=== PATIENT | female | born 1965 | race African-American/Black ===

== ENCOUNTER 2018-05-16 23:50 | Inpatient (IN) | payer OTHER ==
[2018-05-17] MEDS: HYDROCODONE/APAP (5/325) TAB PO ×2 (01:59→23:58)
[2018-05-17] MEDS ORDERED: GLUCOSE GEL 15 GRAM TUBE BUCCAL (02:00)
[2018-05-17] MEDS ORDERED: DEXTROSE 50% 50 ML SYRINGE IV ×2 (02:00)
[2018-05-17] MEDS ORDERED: GLUCAGON 1 MG INJ IM (02:00)
[2018-05-17] MEDS: ACCU-CHEK XX (02:00)
[2018-05-17] MEDS ORDERED: GLUCOSE GEL 15 GRAM TUBE PO ×2 (02:00)
[2018-05-17] MEDS: ZOLPIDEM 5 MG TAB PO ×2 (02:52→23:57)
[2018-05-17] MEDS: hydrALAzine 20 MG INJ IV (02:53)
[2018-05-17] MEDS: LACTULOSE 30ML CUP PO ×5 (02:53→23:29)
[2018-05-17] MEDS ORDERED: ACETAMINOPHEN 325 MG TAB PO (06:30)
[2018-05-17] MEDS ORDERED: NACL 0.9% 3 ML SYG IV (06:30)
[2018-05-17] MEDS: INSULIN ASPART [NOVOLOG] 3 ML PEN SC ×8 (07:25→20:52)
[2018-05-17] MEDS ORDERED: INSULIN ASPART [NOVOLOG] 3 ML PEN SC (07:55)
[2018-05-17 07:57] LABS: ADD MAN DIFF? NO
[2018-05-17 07:59] LABS: BASOPHILS % 0.2 % (0.0-2.0); EOSINOPHILS # 0.1 10^3/ul (0.0-0.5); EOSINOPHILS % 0.6 % (0.0-7.0); HEMATOCRIT 37.2 % (37.0-47.0); HEMOGLOBIN 12.1 g/dl (12.0-16.0); LYMPHOCYTES # 2.8 10^3/ul (0.8-2.9); LYMPHOCYTES % 31.4 % (15.0-51.0); MEAN CORPUSCULAR HEMOGLOBIN 24.5 pg (29.0-33.0); MEAN CORPUSCULAR HGB CONC 32.5 g/dl (32.0-37.0); MEAN CORPUSCULAR VOLUME 75.5 fl (82.0-101.0); MEAN PLATELET VOLUME 10.5 fl (7.4-10.4); MONOCYTE # 0.6 10^3/ul (0.3-0.9); MONOCYTES % 6.6 % (0.0-11.0); NEUTROPHIL # 5.5 10^3/ul (1.6-7.5); PLATELET COUNT 321 10^3/UL (140-415); RED BLOOD COUNT 4.93 10^6/ul (4.20-5.40); RED CELL DISTRIBUTION WIDTH 15.1 % (11.5-14.5)
[2018-05-17 08:52] LABS: HEMOGLOBIN A1C 9.9 % (0-5.9)
[2018-05-17] MEDS: DOCUSATE SODIUM 100 MG CAP PO ×2 (08:53→20:48)
[2018-05-17] MEDS: LISINOPRIL 20 MG TAB PO (08:53)
[2018-05-17] MEDS: ASPIRIN 81 MG TAB PO (08:53)
[2018-05-17] MEDS: HEPARIN 5,000 UNIT/0.5 ML VIAL SC ×2 (08:57→20:51)
[2018-05-17] MEDS: INSULIN GLARGINE [LANTus] (100 UNITS/ML) SYG SC (08:57)
[2018-05-17 09:01] LABS: ALANINE AMINOTRANSFERASE 24 IU/L (13-69); ALBUMIN 3.3 g/dl (3.3-4.9); ALBUMIN/GLOBULIN RATIO 0.97; ALKALINE PHOSPHATASE 61 IU/L (42-121); ANION GAP 13 (8-16); ASPARTATE AMINO TRANSFERASE 21 IU/L (15-46); BILIRUBIN,INDIRECT 0.3 mg/dl (0-1.1); BILIRUBIN,TOTAL 0.3 mg/dl (0.2-1.3); BLOOD UREA NITROGEN 24 mg/dl (7-20); CALCIUM 8.8 mg/dl (8.4-10.2); CARBON DIOXIDE 25 mmol/L (21-31); CHLORIDE 100 mmol/L (97-110); CHOL/HDL RATIO 7.3 RATIO; CHOLESTEROL 288 mg/dl (100-200); CREATININE 1.77 mg/dl (0.44-1.00); GLUCOSE 167 mg/dl (70-220); HDL CHOLESTEROL 39 mg/dl (37-92); LDL CHOLESTEROL,CALCULATED 213 mg/dl; MAGNESIUM 2.1 mg/dl (1.7-2.5); POTASSIUM 3.6 mmol/L (3.5-5.1); SODIUM 134 mmol/L (135-144); TOTAL PROTEIN 6.7 g/dl (6.1-8.1); TRIGLYCERIDES 179 mg/dl (0-149)
[2018-05-17] MEDS: ONDANSETRON 4 MG INJ IV (12:07)
[2018-05-17 19:19] LABS: ADD UMIC YES; UR ASCORBIC ACID NEGATIVE (NEGATIVE); UR BACTERIA FEW /HPF (NONE SEEN); UR BILIRUBIN (Dip) NEGATIVE (NEGATIVE); UR BLOOD (Dip) 1+ mg/dL (NEGATIVE); UR CLARITY SLIGHTLY CLOUDY (CLEAR); UR COLOR YELLOW (YELLOW); UR GLUCOSE (Dip) 1+ mg/dL (NEGATIVE); UR KETONES (Dip) TRACE mg/dL (NEGATIVE); UR LEUKOCYTE ESTERASE (Dip) TRACE Leu/ul (NEGATIVE); UR NITRITE (Dip) NEGATIVE (NEGATIVE); UR RBC 3 /HPF (0-5); UR SPECIFIC GRAVITY (Dip) 1.008 (1.003-1.030); UR SQUAMOUS EPITHELIAL CELL MODERATE /HPF (FEW); UR TOTAL PROTEIN (Dip) 3+ mg/dl (NEGATIVE); UR UROBILINOGEN (Dip) NEGATIVE (NEGATIVE); UR WBC 10 /HPF (0-5)
[2018-05-17 19:40] LABS: SODIUM,URINE RANDOM 24 mmol/L (30-90)
[2018-05-17 19:43] LABS: CREATININE,URINE RANDOM 73.11 mg/dl (20-320)
[2018-05-17] MEDS: ATORVASTATIN 20 MG TAB PO (20:48)
[2018-05-18] MEDS: ACCU-CHEK XX (01:19)
[2018-05-18] MEDS: LACTULOSE 30ML CUP PO ×4 (03:22→23:29)
[2018-05-18] MEDS: INSULIN ASPART [NOVOLOG] 3 ML PEN SC ×7 (07:59→21:00)
[2018-05-18] MEDS: DOCUSATE SODIUM 100 MG CAP PO ×2 (08:00→20:22)
[2018-05-18] MEDS: CLOPIDOGREL 75 MG TAB PO (08:47)
[2018-05-18] MEDS: ASPIRIN 81 MG TAB PO (08:47)
[2018-05-18] MEDS: HEPARIN 5,000 UNIT/0.5 ML VIAL SC ×2 (08:48→21:56)
[2018-05-18] MEDS: AMLODIPINE 5 MG TAB PO (08:48)
[2018-05-18] MEDS: INSULIN GLARGINE [LANTus] (100 UNITS/ML) SYG SC (08:49)
[2018-05-18 09:14] LABS: ADD MAN DIFF? NO
[2018-05-18 09:17] LABS: WHITE BLOOD COUNT 8.5 10^3/ul (4.8-10.8)
[2018-05-18 09:17] LABS: BASOPHILS % 0.2 % (0.0-2.0); EOSINOPHILS # 0.1 10^3/ul (0.0-0.5); EOSINOPHILS % 1.1 % (0.0-7.0); HEMATOCRIT 38.4 % (37.0-47.0); HEMOGLOBIN 12.6 g/dl (12.0-16.0); LYMPHOCYTES # 2.4 10^3/ul (0.8-2.9); LYMPHOCYTES % 28.4 % (15.0-51.0); MEAN CORPUSCULAR HEMOGLOBIN 24.8 pg (29.0-33.0); MEAN CORPUSCULAR HGB CONC 32.8 g/dl (32.0-37.0); MEAN CORPUSCULAR VOLUME 75.4 fl (82.0-101.0); MEAN PLATELET VOLUME 10.9 fl (7.4-10.4); MONOCYTE # 0.4 10^3/ul (0.3-0.9); MONOCYTES % 4.8 % (0.0-11.0); NEUTROPHIL # 5.5 10^3/ul (1.6-7.5); NEUTROPHILS % 65.3 % (39.0-77.0); PLATELET COUNT 346 10^3/UL (140-415); RED BLOOD COUNT 5.09 10^6/ul (4.20-5.40); RED CELL DISTRIBUTION WIDTH 15.1 % (11.5-14.5)
[2018-05-18 09:42] LABS: ANION GAP 11 (8-16); BLOOD UREA NITROGEN 29 mg/dl (7-20); CALCIUM 9.1 mg/dl (8.4-10.2); CARBON DIOXIDE 28 mmol/L (21-31); CHLORIDE 101 mmol/L (97-110); CREATININE 1.65 mg/dl (0.44-1.00); GLUCOSE 198 mg/dl (70-220); MAGNESIUM 2.3 mg/dl (1.7-2.5); PHOSPHORUS 4.6 mg/dl (2.5-4.9); POTASSIUM 3.9 mmol/L (3.5-5.1); SODIUM 136 mmol/L (135-144)
[2018-05-18] MEDS: HYDROCODONE/APAP (5/325) TAB PO (21:48)
[2018-05-18] MEDS: ZOLPIDEM 5 MG TAB PO (21:48)
[2018-05-18] MEDS: ATORVASTATIN 20 MG TAB PO (21:48)
[2018-05-19] MEDS: ACCU-CHEK XX ×2 (01:45→23:31)
[2018-05-19] MEDS: LACTULOSE 30ML CUP PO ×5 (05:15→23:31)
[2018-05-19 08:00] LABS: PTH INTACT 72 pg/mL (14-64)
[2018-05-19] MEDS: CLOPIDOGREL 75 MG TAB PO (08:49)
[2018-05-19] MEDS: DOCUSATE SODIUM 100 MG CAP PO ×2 (08:49→21:00)
[2018-05-19] MEDS: AMLODIPINE 5 MG TAB PO (08:50)
[2018-05-19] MEDS: ASPIRIN 81 MG TAB PO (08:50)
[2018-05-19] MEDS: INSULIN GLARGINE [LANTus] (100 UNITS/ML) SYG SC (08:55)
[2018-05-19] MEDS: HEPARIN 5,000 UNIT/0.5 ML VIAL SC ×2 (08:56→22:05)
[2018-05-19] MEDS: INSULIN ASPART [NOVOLOG] 3 ML PEN SC ×7 (09:03→22:12)
[2018-05-19 09:58] LABS: ADD MAN DIFF? NO
[2018-05-19 10:02] LABS: WHITE BLOOD COUNT 7.9 10^3/ul (4.8-10.8)
[2018-05-19 10:02] LABS: BASOPHILS % 0.4 % (0.0-2.0); EOSINOPHILS # 0.1 10^3/ul (0.0-0.5); EOSINOPHILS % 1.5 % (0.0-7.0); HEMATOCRIT 36.2 % (37.0-47.0); HEMOGLOBIN 11.7 g/dl (12.0-16.0); MEAN CORPUSCULAR HEMOGLOBIN 24.4 pg (29.0-33.0); MEAN CORPUSCULAR HGB CONC 32.3 g/dl (32.0-37.0); MEAN CORPUSCULAR VOLUME 75.4 fl (82.0-101.0); MONOCYTE # 0.6 10^3/ul (0.3-0.9); NEUTROPHIL # 4.1 10^3/ul (1.6-7.5); NEUTROPHILS % 52.7 % (39.0-77.0); PLATELET COUNT 336 10^3/UL (140-415); RED CELL DISTRIBUTION WIDTH 14.9 % (11.5-14.5)
[2018-05-19 10:24] LABS: ANION GAP 11 (8-16); BLOOD UREA NITROGEN 38 mg/dl (7-20); CALCIUM 9.1 mg/dl (8.4-10.2); CARBON DIOXIDE 28 mmol/L (21-31); CHLORIDE 102 mmol/L (97-110); GLUCOSE 167 mg/dl (70-220); MAGNESIUM 2.2 mg/dl (1.7-2.5); PHOSPHORUS 4.9 mg/dl (2.5-4.9); SODIUM 137 mmol/L (135-144)
[2018-05-19] MEDS ORDERED: CEFTRIAXONE 1 GM/50 ML (PMX) 50 ML IVPB (17:00)
[2018-05-19 17:57] LABS: CREATININE, RANDOM URINE 76 mg/dL (20-275); MICROALBUMIN 145.3 mg/dL; MICROALBUMIN/CREATININE RATIO 1912 (<30)
[2018-05-19] MEDS: LEVOFLOXACIN 500 MG TAB PO (19:02)
[2018-05-19] MEDS: ZOLPIDEM 5 MG TAB PO (21:59)
[2018-05-19] MEDS: ATORVASTATIN 20 MG TAB PO (21:59)
[2018-05-19] MEDS: HYDROCODONE/APAP (5/325) TAB PO (21:59)
[2018-05-20] MEDS: NITROGLYCERIN (SL) 0.4 MG TAB SL ×2 (00:10)
[2018-05-20] MEDS ORDERED: NITROGLYCERIN (SL) 0.4 MG TAB (00:12)
[2018-05-20] MEDS ORDERED: AL HYDROX/MG HYDROX/SIMETH 30 ML CUP PO (00:30)
[2018-05-20] MEDS ORDERED: morphine 10 MG INJ IM (00:30)
[2018-05-20] MEDS: LACTULOSE 30ML CUP PO ×3 (00:38→17:25)
[2018-05-20] MEDS: PANTOPRAZOLE (EC) 40 MG TAB PO (00:47)
[2018-05-20] MEDS: ONDANSETRON 4 MG TAB PO (00:47)
[2018-05-20 01:30] LABS: CREATINE KINASE 161 IU/L (23-200)
[2018-05-20 01:41] LABS: CK INDEX 0.5; CK-MB 0.82 ng/ml (0.0-2.4); TROPONIN-I 0.026 ng/ml (0.000-0.120)
[2018-05-20] MEDS: LEVOFLOXACIN 250 MG TAB PO (05:09)
[2018-05-20] MEDS: INSULIN ASPART [NOVOLOG] 3 ML PEN SC ×7 (08:01→20:28)
[2018-05-20] MEDS: ASPIRIN 81 MG TAB PO (08:33)
[2018-05-20] MEDS: CLOPIDOGREL 75 MG TAB PO (08:38)
[2018-05-20] MEDS: DOCUSATE SODIUM 100 MG CAP PO ×2 (08:38→21:00)
[2018-05-20] MEDS: AMLODIPINE 10 MG TAB PO (08:38)
[2018-05-20] MEDS: INSULIN GLARGINE [LANTus] (100 UNITS/ML) SYG SC (08:44)
[2018-05-20] MEDS: HEPARIN 5,000 UNIT/0.5 ML VIAL SC ×2 (08:44→20:27)
[2018-05-20 10:59] LABS: ADD MAN DIFF? NO
[2018-05-20 11:01] LABS: WHITE BLOOD COUNT 8.1 10^3/ul (4.8-10.8)
[2018-05-20 11:01] LABS: BASOPHILS % 0.4 % (0.0-2.0); EOSINOPHILS # 0.1 10^3/ul (0.0-0.5); EOSINOPHILS % 1.1 % (0.0-7.0); HEMATOCRIT 40.7 % (37.0-47.0); HEMOGLOBIN 13.2 g/dl (12.0-16.0); LYMPHOCYTES # 2.9 10^3/ul (0.8-2.9); LYMPHOCYTES % 35.2 % (15.0-51.0); MEAN CORPUSCULAR HEMOGLOBIN 24.5 pg (29.0-33.0); MEAN CORPUSCULAR HGB CONC 32.4 g/dl (32.0-37.0); MEAN CORPUSCULAR VOLUME 75.5 fl (82.0-101.0); MEAN PLATELET VOLUME 10.7 fl (7.4-10.4); MONOCYTE # 0.6 10^3/ul (0.3-0.9); MONOCYTES % 6.9 % (0.0-11.0); NEUTROPHIL # 4.5 10^3/ul (1.6-7.5); NEUTROPHILS % 56.2 % (39.0-77.0); PLATELET COUNT 342 10^3/UL (140-415); RED BLOOD COUNT 5.39 10^6/ul (4.20-5.40)
[2018-05-20 11:20] LABS: CREATINE KINASE 162 IU/L (23-200)
[2018-05-20 11:22] LABS: ANION GAP 14 (8-16); BLOOD UREA NITROGEN 32 mg/dl (7-20); CALCIUM 9.7 mg/dl (8.4-10.2); CARBON DIOXIDE 24 mmol/L (21-31); CHLORIDE 106 mmol/L (97-110); CREATININE 1.34 mg/dl (0.44-1.00); GLUCOSE 109 mg/dl (70-220); MAGNESIUM 2.1 mg/dl (1.7-2.5); PHOSPHORUS 4.1 mg/dl (2.5-4.9); POTASSIUM 4.8 mmol/L (3.5-5.1); SODIUM 139 mmol/L (135-144)
[2018-05-20 11:34] LABS: CK INDEX 0.6; CK-MB 0.96 ng/ml (0.0-2.4); TROPONIN-I 0.063 ng/ml (0.000-0.120)
[2018-05-20] MEDS: METOPROLOL (XL) 25 MG TAB PO (12:49)
[2018-05-20] MEDS: hydrALAzine 20 MG INJ IV (16:10)
[2018-05-20] MEDS: ATORVASTATIN 20 MG TAB PO (20:19)
[2018-05-20] MEDS: ZOLPIDEM 5 MG TAB PO (23:08)
[2018-05-21] MEDS: ACCU-CHEK XX (02:00)
[2018-05-21] MEDS: LACTULOSE 30ML CUP PO ×4 (06:00→17:03)
[2018-05-21] MEDS: LEVOFLOXACIN 250 MG TAB PO (06:21)
[2018-05-21] MEDS: INSULIN ASPART [NOVOLOG] 3 ML PEN SC ×7 (07:42→21:00)
[2018-05-21] MEDS: METOPROLOL (XL) 25 MG TAB PO (08:36)
[2018-05-21] MEDS: DOCUSATE SODIUM 100 MG CAP PO ×2 (08:36→21:12)
[2018-05-21] MEDS: CLOPIDOGREL 75 MG TAB PO (08:36)
[2018-05-21] MEDS: AMLODIPINE 10 MG TAB PO (08:36)
[2018-05-21] MEDS: ASPIRIN 81 MG TAB PO (08:36)
[2018-05-21] MEDS: HEPARIN 5,000 UNIT/0.5 ML VIAL SC ×2 (08:38→21:37)
[2018-05-21] MEDS: INSULIN GLARGINE [LANTus] (100 UNITS/ML) SYG SC (08:38)
[2018-05-21 11:07] LABS: ADD MAN DIFF? NO
[2018-05-21 11:09] LABS: WHITE BLOOD COUNT 8.9 10^3/ul (4.8-10.8)
[2018-05-21 11:09] LABS: BASOPHILS % 0.3 % (0.0-2.0); EOSINOPHILS # 0.1 10^3/ul (0.0-0.5); EOSINOPHILS % 1.1 % (0.0-7.0); HEMATOCRIT 35.6 % (37.0-47.0); HEMOGLOBIN 11.6 g/dl (12.0-16.0); LYMPHOCYTES # 3.9 10^3/ul (0.8-2.9); LYMPHOCYTES % 43.8 % (15.0-51.0); MEAN CORPUSCULAR HEMOGLOBIN 24.3 pg (29.0-33.0); MEAN CORPUSCULAR HGB CONC 32.6 g/dl (32.0-37.0); MEAN CORPUSCULAR VOLUME 74.6 fl (82.0-101.0); MEAN PLATELET VOLUME 10.5 fl (7.4-10.4); MONOCYTE # 0.6 10^3/ul (0.3-0.9); MONOCYTES % 6.7 % (0.0-11.0); NEUTROPHIL # 4.2 10^3/ul (1.6-7.5); NEUTROPHILS % 47.9 % (39.0-77.0); PLATELET COUNT 339 10^3/UL (140-415); RED BLOOD COUNT 4.77 10^6/ul (4.20-5.40); RED CELL DISTRIBUTION WIDTH 15.5 % (11.5-14.5)
[2018-05-21 11:31] LABS: ANION GAP 11 (8-16); BLOOD UREA NITROGEN 34 mg/dl (7-20); CALCIUM 9.2 mg/dl (8.4-10.2); CARBON DIOXIDE 26 mmol/L (21-31); CHLORIDE 106 mmol/L (97-110); CREATININE 1.62 mg/dl (0.44-1.00); GLUCOSE 105 mg/dl (70-220); MAGNESIUM 2.3 mg/dl (1.7-2.5); PHOSPHORUS 4.5 mg/dl (2.5-4.9); POTASSIUM 4.1 mmol/L (3.5-5.1); SODIUM 139 mmol/L (135-144)
[2018-05-21] MEDS: ATORVASTATIN 20 MG TAB PO (21:12)
[2018-05-22] MEDS: ZOLPIDEM 5 MG TAB PO ×2 (00:36→22:28)
[2018-05-22] MEDS: ACCU-CHEK XX (02:00)
[2018-05-22] MEDS: ONDANSETRON 4 MG INJ IV (03:52)
[2018-05-22] MEDS: hydrALAzine 20 MG INJ IV ×2 (03:52→16:02)
[2018-05-22] MEDS: LACTULOSE 30ML CUP PO ×4 (06:00→18:00)
[2018-05-22] MEDS: LEVOFLOXACIN 250 MG TAB PO (06:11)
[2018-05-22 07:51] LABS: ANION GAP 11 (8-16); BLOOD UREA NITROGEN 43 mg/dl (7-20); CARBON DIOXIDE 25 mmol/L (21-31); CHLORIDE 107 mmol/L (97-110); CREATININE 1.64 mg/dl (0.44-1.00); GLUCOSE 171 mg/dl (70-220); MAGNESIUM 2.2 mg/dl (1.7-2.5); PHOSPHORUS 5.1 mg/dl (2.5-4.9); POTASSIUM 4.4 mmol/L (3.5-5.1); SODIUM 139 mmol/L (135-144)
[2018-05-22] MEDS: INSULIN ASPART [NOVOLOG] 3 ML PEN SC ×7 (07:55→21:00)
[2018-05-22] MEDS: DOCUSATE SODIUM 100 MG CAP PO ×2 (09:00→21:08)
[2018-05-22] MEDS: ASPIRIN 81 MG TAB PO (09:00)
[2018-05-22] MEDS: AMLODIPINE 10 MG TAB PO (09:01)
[2018-05-22] MEDS: METOPROLOL (XL) 25 MG TAB PO (09:01)
[2018-05-22] MEDS: CLOPIDOGREL 75 MG TAB PO (09:05)
[2018-05-22] MEDS: HEPARIN 5,000 UNIT/0.5 ML VIAL SC ×2 (09:08→21:16)
[2018-05-22] MEDS: INSULIN GLARGINE [LANTus] (100 UNITS/ML) SYG SC (09:08)
[2018-05-22] MEDS: POLYETHYLENE GLYCOL 17 GM PACKET NGT (21:00)
[2018-05-22] MEDS: ATORVASTATIN 20 MG TAB PO (21:08)
[2018-05-22] MEDS: HYDROCODONE/APAP (5/325) TAB PO (22:29)
[2018-05-23] MEDS: ACCU-CHEK XX (02:00)
[2018-05-23] MEDS: LACTULOSE 30ML CUP PO ×3 (06:02→12:00)
[2018-05-23] MEDS: LEVOFLOXACIN 250 MG TAB PO (06:02)
[2018-05-23 06:53] LABS: ADD MAN DIFF? NO
[2018-05-23 06:58] LABS: WHITE BLOOD COUNT 9.9 10^3/ul (4.8-10.8)
[2018-05-23 06:58] LABS: BASOPHIL # 0.1 10^3/ul (0.0-0.1); BASOPHILS % 0.5 % (0.0-2.0); EOSINOPHILS # 0.2 10^3/ul (0.0-0.5); EOSINOPHILS % 1.6 % (0.0-7.0); HEMATOCRIT 33.6 % (37.0-47.0); HEMOGLOBIN 10.9 g/dl (12.0-16.0); LYMPHOCYTES # 4.2 10^3/ul (0.8-2.9); LYMPHOCYTES % 42.3 % (15.0-51.0); MEAN CORPUSCULAR HEMOGLOBIN 24.5 pg (29.0-33.0); MEAN CORPUSCULAR HGB CONC 32.4 g/dl (32.0-37.0); MEAN CORPUSCULAR VOLUME 75.5 fl (82.0-101.0); MEAN PLATELET VOLUME 11.2 fl (7.4-10.4); MONOCYTE # 0.6 10^3/ul (0.3-0.9); MONOCYTES % 6.5 % (0.0-11.0); NEUTROPHIL # 4.8 10^3/ul (1.6-7.5); NEUTROPHILS % 48.9 % (39.0-77.0); PLATELET COUNT 343 10^3/UL (140-415); RED BLOOD COUNT 4.45 10^6/ul (4.20-5.40); RED CELL DISTRIBUTION WIDTH 15.3 % (11.5-14.5)
[2018-05-23 07:20] LABS: ANION GAP 10 (8-16); BLOOD UREA NITROGEN 44 mg/dl (7-20); CALCIUM 9.1 mg/dl (8.4-10.2); CARBON DIOXIDE 28 mmol/L (21-31); CHLORIDE 105 mmol/L (97-110); CREATININE 1.74 mg/dl (0.44-1.00); GLUCOSE 152 mg/dl (70-220); MAGNESIUM 2.2 mg/dl (1.7-2.5); PHOSPHORUS 5.1 mg/dl (2.5-4.9); SODIUM 139 mmol/L (135-144)
[2018-05-23] MEDS: INSULIN ASPART [NOVOLOG] 3 ML PEN SC ×4 (07:30→12:28)
[2018-05-23 08:26] LABS: PROTEIN, TOTAL 6.2 g/dL (6.1-8.1)
[2018-05-23 08:31] LABS: POTASSIUM 4.3 mmol/L (3.5-5.1)
[2018-05-23] MEDS: ONDANSETRON 4 MG INJ IV (08:53)
[2018-05-23] MEDS: METOPROLOL (XL) 25 MG TAB PO (12:17)
[2018-05-23] MEDS: POLYETHYLENE GLYCOL 17 GM PACKET NGT (12:17)
[2018-05-23] MEDS: ASPIRIN 81 MG TAB PO (12:18)
[2018-05-23] MEDS: AMLODIPINE 10 MG TAB PO (12:18)
[2018-05-23] MEDS: CLOPIDOGREL 75 MG TAB PO (12:18)
[2018-05-23] MEDS: DOCUSATE SODIUM 100 MG CAP PO (12:18)
[2018-05-23] MEDS: INSULIN GLARGINE [LANTus] (100 UNITS/ML) SYG SC (12:24)
[2018-05-23] MEDS: HEPARIN 5,000 UNIT/0.5 ML VIAL SC (12:29)
[2018-05-23 13:01] LABS: CREATININE, RANDOM URINE 49 mg/dL (20-275); PROTEIN/CREATININE RATIO 2714 mg/g creat (21-161)
[2018-05-23 23:42] LABS: ALPHA-1-GLOBULINS 0.4 g/dL (0.2-0.3); BETA 2 GLOBULINS 0.5 g/dL (0.2-0.5); BETA GLOBULINS 0.4 g/dL (0.4-0.6)
== END 2018-05-23 17:15 | DRG 65 ==
LOC: PP2 05-23 02:01 → TEL 23:50
PROVIDERS: Internal Medicine
DX: I63.9 Cerebral infarction, unspecified (principal); N17.9 Acute kidney failure, unspecified; E87.1 Hypo-osmolality and hyponatremia; N39.0 Urinary tract infection, site not specified; E66.9 Obesity, unspecified; Z68.36 Body mass index [BMI] 36.0-36.9, adult; I65.23 Occlusion and stenosis of bilateral carotid arteries; K59.00 Constipation, unspecified; H92.03 Otalgia, bilateral; I16.0 Hypertensive urgency; E83.9 Disorder of mineral metabolism, unspecified; E11.22 Type 2 diabetes mellitus with diabetic chronic kidney disease; I12.9 Hypertensive chronic kidney disease with stage 1 through stage 4 chronic kidney disease, or unspecified chronic kidney disease; N18.9 Chronic kidney disease, unspecified
CPT/HCPCS: 76775; 80048; 80053; 80061; 81001; 81003; 82043; 82306; 82540; 82550; 82553; 82570; 82962; 83036; 83735; 83970; 84100; 84155; 84156; 84165; 84166; 84300; 84443; 84484; 85025; 86320; 86325; 87081; 92523; 92526; 92610; 93005; 93306; 97110; 97163; 97165; 97530; 97535

== ENCOUNTER 2018-05-23 17:31 | Inpatient (IN) | payer OTHER ==
[2018-05-23] MEDS ORDERED: AL HYDROX/MG HYDROX/SIMETH 30 ML CUP PO (18:00)
[2018-05-23] MEDS ORDERED: NITROGLYCERIN (SL) 0.4 MG TAB SL (18:00)
[2018-05-23] MEDS ORDERED: PENDING SANTYL ORDER FOR WOUND CARE XX (18:00)
[2018-05-23] MEDS ORDERED: ACETAMINOPHEN 325 MG TAB PO (18:00)
[2018-05-23] MEDS ORDERED: ONDANSETRON 4 MG INJ IV (18:00)
[2018-05-23] MEDS ORDERED: DEXTROSE 50% 50 ML SYRINGE IV ×2 (19:00)
[2018-05-23] MEDS ORDERED: GLUCOSE GEL 15 GRAM TUBE BUCCAL (19:00)
[2018-05-23] MEDS ORDERED: GLUCAGON 1 MG INJ IM (19:00)
[2018-05-23] MEDS ORDERED: GLUCOSE GEL 15 GRAM TUBE PO ×2 (19:00)
[2018-05-23 19:08] LABS: ADD UMIC YES; UR ASCORBIC ACID NEGATIVE (NEGATIVE); UR BILIRUBIN (Dip) NEGATIVE (NEGATIVE); UR BLOOD (Dip) 1+ mg/dL (NEGATIVE); UR CLARITY CLEAR (CLEAR); UR COLOR STRAW (YELLOW); UR GLUCOSE (Dip) 1+ mg/dL (NEGATIVE); UR KETONES (Dip) NEGATIVE (NEGATIVE); UR LEUKOCYTE ESTERASE (Dip) NEGATIVE Leu/ul (NEGATIVE); UR NITRITE (Dip) NEGATIVE (NEGATIVE); UR RBC 1 /HPF (0-5); UR SPECIFIC GRAVITY (Dip) 1.009 (1.003-1.030); UR TOTAL PROTEIN (Dip) 2+ mg/dl (NEGATIVE); UR UROBILINOGEN (Dip) NEGATIVE (NEGATIVE); UR WBC 2 /HPF (0-5)
[2018-05-23] MEDS: POLYETHYLENE GLYCOL 17 GM PACKET PO (21:00)
[2018-05-23] MEDS: DOCUSATE SODIUM 100 MG CAP PO (21:17)
[2018-05-23] MEDS: ATORVASTATIN 20 MG TAB PO (21:17)
[2018-05-23] MEDS: LACTULOSE 30ML CUP PO (21:18)
[2018-05-23] MEDS: HEPARIN 5,000 UNIT/0.5 ML VIAL SC (21:23)
[2018-05-23] MEDS: INSULIN ASPART [NOVOLOG] 3 ML PEN SC (21:41)
[2018-05-23] MEDS: ZOLPIDEM 5 MG TAB PO (22:22)
[2018-05-23] MEDS: HYDROCODONE/APAP (5/325) TAB PO (22:23)
[2018-05-24] MEDS: LACTULOSE 30ML CUP PO ×6 (06:00→23:11)
[2018-05-24] MEDS: INSULIN ASPART [NOVOLOG] 3 ML PEN SC ×7 (07:35→20:18)
[2018-05-24] MEDS: INSULIN GLARGINE [LANTus] (100 UNITS/ML) SYG SC (08:00)
[2018-05-24] MEDS: BISACODYL 10 MG SUPP PR (08:40)
[2018-05-24] MEDS: POLYETHYLENE GLYCOL 17 GM PACKET PO ×2 (09:00→20:08)
[2018-05-24] MEDS: METOPROLOL (XL) 25 MG TAB PO (09:00)
[2018-05-24] MEDS: CLOPIDOGREL 75 MG TAB PO (09:00)
[2018-05-24] MEDS: ASPIRIN 81 MG TAB PO (09:00)
[2018-05-24] MEDS: DOCUSATE SODIUM 100 MG CAP PO ×2 (09:00→20:08)
[2018-05-24] MEDS: AMLODIPINE 10 MG TAB PO (09:00)
[2018-05-24] MEDS: HEPARIN 5,000 UNIT/0.5 ML VIAL SC ×2 (09:00→20:09)
[2018-05-24] MEDS: HYDROCODONE/APAP (5/325) TAB PO ×2 (11:02→20:09)
[2018-05-24] MEDS: NA PHOSPHATE/BIPHOS 133 ML ENEMA PR ×2 (11:15→16:00)
[2018-05-24] MEDS: LORAZEPAM 0.5 MG TAB PO (12:01)
[2018-05-24 12:23] LABS: ADD MAN DIFF? NO
[2018-05-24 12:25] LABS: BASOPHILS % 0.3 % (0.0-2.0); EOSINOPHILS # 0.1 10^3/ul (0.0-0.5); EOSINOPHILS % 0.5 % (0.0-7.0); HEMOGLOBIN 12.5 g/dl (12.0-16.0); LYMPHOCYTES # 2.4 10^3/ul (0.8-2.9); LYMPHOCYTES % 20.1 % (15.0-51.0); MEAN CORPUSCULAR HEMOGLOBIN 24.8 pg (29.0-33.0); MEAN CORPUSCULAR HGB CONC 32.9 g/dl (32.0-37.0); MEAN CORPUSCULAR VOLUME 75.2 fl (82.0-101.0); MEAN PLATELET VOLUME 10.6 fl (7.4-10.4); MONOCYTE # 0.3 10^3/ul (0.3-0.9); MONOCYTES % 2.6 % (0.0-11.0); NEUTROPHILS % 76.2 % (39.0-77.0); PLATELET COUNT 361 10^3/UL (140-415); RED BLOOD COUNT 5.05 10^6/ul (4.20-5.40); RED CELL DISTRIBUTION WIDTH 15.8 % (11.5-14.5)
[2018-05-24 12:25] LABS: WHITE BLOOD COUNT 11.9 10^3/ul (4.8-10.8)
[2018-05-24] MEDS ORDERED: HYDROmorphONE 0.5 MG/0.5 ML SYG IV (12:43)
[2018-05-24 12:48] LABS: ANION GAP 14 (8-16); BLOOD UREA NITROGEN 36 mg/dl (7-20); CALCIUM 9.5 mg/dl (8.4-10.2); CARBON DIOXIDE 24 mmol/L (21-31); CHLORIDE 106 mmol/L (97-110); CREATININE 1.59 mg/dl (0.44-1.00); GLUCOSE 222 mg/dl (70-220); POTASSIUM 4.9 mmol/L (3.5-5.1); SODIUM 139 mmol/L (135-144)
[2018-05-24] MEDS: morphine 10 MG INJ IM (14:29)
[2018-05-24] MEDS ORDERED: morphine 10 MG INJ IM (14:30)
[2018-05-24] MEDS: ATORVASTATIN 20 MG TAB PO (20:08)
[2018-05-25] MEDS: LACTULOSE 30ML CUP PO ×3 (06:38→18:00)
[2018-05-25 07:29] LABS: ANION GAP 10 (8-16); BLOOD UREA NITROGEN 26 mg/dl (7-20); CARBON DIOXIDE 28 mmol/L (21-31); CHLORIDE 105 mmol/L (97-110); CREATININE 1.39 mg/dl (0.44-1.00); GLUCOSE 131 mg/dl (70-220); MAGNESIUM 2.4 mg/dl (1.7-2.5); PHOSPHORUS 4.3 mg/dl (2.5-4.9); POTASSIUM 4.3 mmol/L (3.5-5.1); SODIUM 139 mmol/L (135-144)
[2018-05-25] MEDS: INSULIN ASPART [NOVOLOG] 3 ML PEN SC ×7 (07:35→20:27)
[2018-05-25] MEDS: INSULIN GLARGINE [LANTus] (100 UNITS/ML) SYG SC (08:00)
[2018-05-25] MEDS: CLOPIDOGREL 75 MG TAB PO (09:00)
[2018-05-25] MEDS: DOCUSATE SODIUM 100 MG CAP PO ×2 (09:00→21:00)
[2018-05-25] MEDS: METOPROLOL (XL) 25 MG TAB PO (09:00)
[2018-05-25] MEDS: HEPARIN 5,000 UNIT/0.5 ML VIAL SC ×2 (09:00→20:24)
[2018-05-25] MEDS: ASPIRIN 81 MG TAB PO (09:00)
[2018-05-25] MEDS: AMLODIPINE 10 MG TAB PO (09:00)
[2018-05-25] MEDS: POLYETHYLENE GLYCOL 17 GM PACKET PO ×2 (09:00→21:00)
[2018-05-25] MEDS: morphine 2 MG INJ IM (14:34)
[2018-05-25] MEDS: NA PHOSPHATE/BIPHOS 133 ML ENEMA PR (16:04)
[2018-05-25] MEDS: HYDROCODONE/APAP (5/325) TAB PO (20:16)
[2018-05-25] MEDS: ATORVASTATIN 20 MG TAB PO (20:20)
[2018-05-25] MEDS: ZOLPIDEM 5 MG TAB PO (22:12)
[2018-05-26] MEDS: LACTULOSE 30ML CUP PO
[2018-05-26 07:13] LABS: HEMOGLOBIN A1C 9.8 % (0-5.9)
[2018-05-26 07:24] LABS: ANION GAP 9 (8-16); BLOOD UREA NITROGEN 27 mg/dl (7-20); CALCIUM 8.8 mg/dl (8.4-10.2); CARBON DIOXIDE 30 mmol/L (21-31); CHLORIDE 103 mmol/L (97-110); CREATININE 1.51 mg/dl (0.44-1.00); GLUCOSE 183 mg/dl (70-220); MAGNESIUM 2.4 mg/dl (1.7-2.5); PHOSPHORUS 3.8 mg/dl (2.5-4.9); POTASSIUM 4.4 mmol/L (3.5-5.1); SODIUM 138 mmol/L (135-144)
[2018-05-26] MEDS: DOCUSATE SODIUM 100 MG CAP PO ×2 (08:24→20:41)
[2018-05-26] MEDS: ASPIRIN 81 MG TAB PO (08:24)
[2018-05-26] MEDS: METOPROLOL (XL) 25 MG TAB PO ×2 (08:24→20:42)
[2018-05-26] MEDS: CLOPIDOGREL 75 MG TAB PO (08:24)
[2018-05-26] MEDS: POLYETHYLENE GLYCOL 17 GM PACKET PO ×2 (08:24→20:44)
[2018-05-26] MEDS: HEPARIN 5,000 UNIT/0.5 ML VIAL SC ×2 (08:25→20:43)
[2018-05-26] MEDS: AMLODIPINE 10 MG TAB PO (08:25)
[2018-05-26] MEDS: INSULIN ASPART [NOVOLOG] 3 ML PEN SC ×7 (08:26→20:55)
[2018-05-26] MEDS: INSULIN GLARGINE [LANTus] (100 UNITS/ML) SYG SC (08:26)
[2018-05-26] MEDS: HYDROCODONE/APAP (5/325) TAB PO ×2 (08:42→15:23)
[2018-05-26] MEDS: LIDOCAINE 5% PATCH TD (11:56)
[2018-05-26] MEDS: DULOXETINE 30 MG CAP DR PO (12:23)
[2018-05-26] MEDS: PE/SHARK OIL/MO/PETROL 30 GM OINT PR (15:23)
[2018-05-26] MEDS ORDERED: HYDROCODONE/APAP (10/325) TAB PO (20:30)
[2018-05-26] MEDS ORDERED: PRAMOXINE 1% 15 GM RECT FOAM PR (20:30)
[2018-05-26] MEDS: ATORVASTATIN 20 MG TAB PO (20:39)
[2018-05-26] MEDS: morphine 2 MG INJ IM (21:43)
[2018-05-26] MEDS: ZOLPIDEM 5 MG TAB PO (22:39)
[2018-05-26] MEDS: OXYCODONE/ACETAMINOPHEN (5/325) TAB PO (23:12)
[2018-05-27] MEDS: BISACODYL 10 MG SUPP PR (03:48)
[2018-05-27] MEDS: OXYCODONE/ACETAMINOPHEN (5/325) TAB PO ×2 (03:54→17:08)
[2018-05-27] MEDS: PE/SHARK OIL/MO/PETROL 30 GM OINT PR (03:57)
[2018-05-27 06:45] LABS: ADD MAN DIFF? NO
[2018-05-27 06:56] LABS: BASOPHILS % 0.3 % (0.0-2.0); EOSINOPHILS % 0.2 % (0.0-7.0); HEMATOCRIT 35.1 % (37.0-47.0); HEMOGLOBIN 11.5 g/dl (12.0-16.0); LYMPHOCYTES # 1.8 10^3/ul (0.8-2.9); LYMPHOCYTES % 12.2 % (15.0-51.0); MEAN CORPUSCULAR HEMOGLOBIN 24.8 pg (29.0-33.0); MEAN CORPUSCULAR HGB CONC 32.8 g/dl (32.0-37.0); MEAN CORPUSCULAR VOLUME 75.6 fl (82.0-101.0); MONOCYTE # 1.1 10^3/ul (0.3-0.9); MONOCYTES % 7.7 % (0.0-11.0); NEUTROPHIL # 11.6 10^3/ul (1.6-7.5); NEUTROPHILS % 79.3 % (39.0-77.0); PLATELET COUNT 329 10^3/UL (140-415); RED BLOOD COUNT 4.64 10^6/ul (4.20-5.40); RED CELL DISTRIBUTION WIDTH 14.9 % (11.5-14.5)
[2018-05-27 06:56] LABS: WHITE BLOOD COUNT 14.7 10^3/ul (4.8-10.8)
[2018-05-27 07:12] LABS: ANION GAP 16 (8-16); BLOOD UREA NITROGEN 29 mg/dl (7-20); CALCIUM 8.7 mg/dl (8.4-10.2); CARBON DIOXIDE 26 mmol/L (21-31); CHLORIDE 98 mmol/L (97-110); CREATININE 1.33 mg/dl (0.44-1.00); GLUCOSE 198 mg/dl (70-220); MAGNESIUM 2.2 mg/dl (1.7-2.5); PHOSPHORUS 3.9 mg/dl (2.5-4.9); POTASSIUM 5.1 mmol/L (3.5-5.1); SODIUM 135 mmol/L (135-144)
[2018-05-27] MEDS: METOPROLOL (XL) 25 MG TAB PO ×3 (09:00→21:08)
[2018-05-27] MEDS: POLYETHYLENE GLYCOL 17 GM PACKET PO ×2 (09:00→21:11)
[2018-05-27] MEDS: AMLODIPINE 10 MG TAB PO ×2 (09:00→13:06)
[2018-05-27] MEDS: DOCUSATE SODIUM 100 MG CAP PO ×2 (09:00→21:05)
[2018-05-27] MEDS: CLOPIDOGREL 75 MG TAB PO ×2 (09:00→13:04)
[2018-05-27] MEDS: DULOXETINE 30 MG CAP DR PO ×2 (09:00→13:04)
[2018-05-27] MEDS: ASPIRIN 81 MG TAB PO ×2 (09:00→13:03)
[2018-05-27] MEDS: INSULIN ASPART [NOVOLOG] 3 ML PEN SC ×7 (10:11→21:00)
[2018-05-27] MEDS: HEPARIN 5,000 UNIT/0.5 ML VIAL SC ×2 (10:13→21:10)
[2018-05-27] MEDS: INSULIN GLARGINE [LANTus] (100 UNITS/ML) SYG SC (10:15)
[2018-05-27] MEDS: LIDOCAINE 5% PATCH TD (10:22)
[2018-05-27] MEDS: ATORVASTATIN 20 MG TAB PO (21:04)
[2018-05-27] MEDS: ZOLPIDEM 5 MG TAB PO (22:10)
[2018-05-28] MEDS: INSULIN ASPART [NOVOLOG] 3 ML PEN SC ×7 (07:35→20:25)
[2018-05-28] MEDS: INSULIN GLARGINE [LANTus] (100 UNITS/ML) SYG SC (08:07)
[2018-05-28] MEDS: ASPIRIN 81 MG TAB PO (09:21)
[2018-05-28] MEDS: DOCUSATE SODIUM 100 MG CAP PO ×2 (09:21→20:19)
[2018-05-28] MEDS: DULOXETINE 30 MG CAP DR PO (09:21)
[2018-05-28] MEDS: POLYETHYLENE GLYCOL 17 GM PACKET PO ×2 (09:21→20:19)
[2018-05-28] MEDS: AMLODIPINE 10 MG TAB PO (09:22)
[2018-05-28] MEDS: CLOPIDOGREL 75 MG TAB PO (09:23)
[2018-05-28] MEDS: METOPROLOL (XL) 25 MG TAB PO ×2 (09:24→20:25)
[2018-05-28] MEDS: HEPARIN 5,000 UNIT/0.5 ML VIAL SC ×2 (09:25→20:20)
[2018-05-28] MEDS: LIDOCAINE 5% PATCH TD (09:30)
[2018-05-28] MEDS: PE/SHARK OIL/MO/PETROL 30 GM OINT PR ×2 (13:54→20:25)
[2018-05-28] MEDS: OXYCODONE/ACETAMINOPHEN (5/325) TAB PO ×2 (15:20→20:15)
[2018-05-28 18:13] LABS: COLLECTION PERIOD 24 hrs; VOLUME 2890 ml/24hrs
[2018-05-28 18:16] LABS: SCRET 1.33 mg/dl (0.44-1.00)
[2018-05-28 18:23] LABS: CREATININE CLEARANCE 57.6 mls/min (84.0-162.0); CREATININE,URINE RANDOM 38.17 mg/dl (20-320)
[2018-05-28 18:28] LABS: COLLECTION PERIOD 24 hrs
[2018-05-28 18:29] LABS: VOLUME 2890 mls
[2018-05-28] MEDS: ATORVASTATIN 20 MG TAB PO (20:19)
[2018-05-28] MEDS: LISINOPRIL 10 MG TAB PO (20:24)
[2018-05-28] MEDS: ZOLPIDEM 5 MG TAB PO (22:21)
[2018-05-28] MEDS: morphine 2 MG INJ IM (23:25)
[2018-05-29] MEDS: DOCUSATE SODIUM 100 MG CAP PO ×2 (10:35→21:29)
[2018-05-29] MEDS: CLOPIDOGREL 75 MG TAB PO (10:36)
[2018-05-29] MEDS: METOPROLOL (XL) 25 MG TAB PO ×2 (10:36→21:31)
[2018-05-29] MEDS: DULOXETINE 30 MG CAP DR PO (10:36)
[2018-05-29] MEDS: AMLODIPINE 5 MG TAB PO (10:36)
[2018-05-29] MEDS: ASPIRIN 81 MG TAB PO (10:36)
[2018-05-29] MEDS: POLYETHYLENE GLYCOL 17 GM PACKET PO ×2 (10:37→21:00)
[2018-05-29] MEDS: LIDOCAINE 5% PATCH TD (10:38)
[2018-05-29] MEDS: HEPARIN 5,000 UNIT/0.5 ML VIAL SC ×2 (10:41→21:34)
[2018-05-29] MEDS: INSULIN ASPART [NOVOLOG] 3 ML PEN SC ×7 (10:42→21:00)
[2018-05-29] MEDS: INSULIN GLARGINE [LANTus] (100 UNITS/ML) SYG SC (13:19)
[2018-05-29] MEDS: OXYCODONE/ACETAMINOPHEN (5/325) TAB PO ×2 (14:10→18:44)
[2018-05-29] MEDS: PE/SHARK OIL/MO/PETROL 30 GM OINT PR (21:28)
[2018-05-29] MEDS: ATORVASTATIN 20 MG TAB PO (21:31)
[2018-05-29] MEDS: LISINOPRIL 10 MG TAB PO (21:32)
[2018-05-29] MEDS: morphine LIQ (10 MG/5 ML) CUP PO (21:39)
[2018-05-29] MEDS: ZOLPIDEM 5 MG TAB PO (22:39)
[2018-05-30 06:49] LABS: ADD MAN DIFF? NO
[2018-05-30 06:50] LABS: BASOPHILS % 0.3 % (0.0-2.0); EOSINOPHILS # 0.1 10^3/ul (0.0-0.5); EOSINOPHILS % 1.2 % (0.0-7.0); HEMOGLOBIN 11.3 g/dl (12.0-16.0); LYMPHOCYTES % 29.9 % (15.0-51.0); MEAN CORPUSCULAR HEMOGLOBIN 24.5 pg (29.0-33.0); MEAN CORPUSCULAR HGB CONC 32.3 g/dl (32.0-37.0); MEAN CORPUSCULAR VOLUME 75.9 fl (82.0-101.0); MEAN PLATELET VOLUME 10.4 fl (7.4-10.4); MONOCYTE # 0.7 10^3/ul (0.3-0.9); MONOCYTES % 6.9 % (0.0-11.0); NEUTROPHIL # 6.2 10^3/ul (1.6-7.5); NEUTROPHILS % 61.3 % (39.0-77.0); PLATELET COUNT 343 10^3/UL (140-415); RED BLOOD COUNT 4.61 10^6/ul (4.20-5.40); RED CELL DISTRIBUTION WIDTH 15.5 % (11.5-14.5)
[2018-05-30 06:50] LABS: WHITE BLOOD COUNT 10.1 10^3/ul (4.8-10.8)
[2018-05-30 07:26] LABS: ANION GAP 12 (8-16); BLOOD UREA NITROGEN 32 mg/dl (7-20); CARBON DIOXIDE 28 mmol/L (21-31); CHLORIDE 103 mmol/L (97-110); CREATININE 1.61 mg/dl (0.44-1.00); GLUCOSE 107 mg/dl (70-220); MAGNESIUM 2.7 mg/dl (1.7-2.5); PHOSPHORUS 5.4 mg/dl (2.5-4.9); POTASSIUM 4.9 mmol/L (3.5-5.1); SODIUM 138 mmol/L (135-144)
[2018-05-30] MEDS: INSULIN ASPART [NOVOLOG] 3 ML PEN SC ×7 (10:04→21:00)
[2018-05-30] MEDS: DULOXETINE 30 MG CAP DR PO (10:06)
[2018-05-30] MEDS: ASPIRIN 81 MG TAB PO (10:07)
[2018-05-30] MEDS: CLOPIDOGREL 75 MG TAB PO (10:07)
[2018-05-30] MEDS: DOCUSATE SODIUM 100 MG CAP PO ×2 (10:07→21:06)
[2018-05-30] MEDS: HEPARIN 5,000 UNIT/0.5 ML VIAL SC ×2 (10:11→21:08)
[2018-05-30] MEDS: LIDOCAINE 5% PATCH TD (10:14)
[2018-05-30] MEDS: PRAMOXINE 1% 15 GM RECT FOAM PR ×2 (10:28→22:41)
[2018-05-30] MEDS: INSULIN GLARGINE [LANTus] (100 UNITS/ML) SYG SC ×2 (10:39→13:25)
[2018-05-30] MEDS: AMLODIPINE 5 MG TAB PO ×2 (10:41→16:42)
[2018-05-30] MEDS: POLYETHYLENE GLYCOL 17 GM PACKET PO ×2 (10:41→21:09)
[2018-05-30] MEDS: METOPROLOL (XL) 25 MG TAB PO ×3 (10:42→21:06)
[2018-05-30] MEDS: ATORVASTATIN 20 MG TAB PO (21:03)
[2018-05-30] MEDS: LISINOPRIL 10 MG TAB PO (21:05)
[2018-05-30] MEDS: ZOLPIDEM 5 MG TAB PO (21:19)
[2018-05-30] MEDS: PE/SHARK OIL/MO/PETROL 30 GM OINT PR (22:39)
[2018-05-31 07:20] LABS: ANION GAP 10 (8-16); BLOOD UREA NITROGEN 29 mg/dl (7-20); CALCIUM 9.1 mg/dl (8.4-10.2); CARBON DIOXIDE 29 mmol/L (21-31); CHLORIDE 103 mmol/L (97-110); CREATININE 1.54 mg/dl (0.44-1.00); GLUCOSE 80 mg/dl (70-220); MAGNESIUM 2.6 mg/dl (1.7-2.5); PHOSPHORUS 5.3 mg/dl (2.5-4.9); POTASSIUM 4.9 mmol/L (3.5-5.1); SODIUM 137 mmol/L (135-144)
[2018-05-31] MEDS: INSULIN ASPART [NOVOLOG] 3 ML PEN SC ×7 (07:35→21:00)
[2018-05-31] MEDS: INSULIN GLARGINE [LANTus] (100 UNITS/ML) SYG SC (08:25)
[2018-05-31] MEDS: METOPROLOL (XL) 25 MG TAB PO ×2 (09:00→21:00)
[2018-05-31] MEDS: OXYCODONE/ACETAMINOPHEN (5/325) TAB PO ×2 (09:24→22:26)
[2018-05-31] MEDS: PRAMOXINE 1% 15 GM RECT FOAM PR (09:27)
[2018-05-31] MEDS: DULOXETINE 30 MG CAP DR PO (09:38)
[2018-05-31] MEDS: ASPIRIN 81 MG TAB PO (09:38)
[2018-05-31] MEDS: LIDOCAINE 5% PATCH TD (09:38)
[2018-05-31] MEDS: DOCUSATE SODIUM 100 MG CAP PO ×2 (09:38→22:26)
[2018-05-31] MEDS: AMLODIPINE 5 MG TAB PO (09:39)
[2018-05-31] MEDS: CLOPIDOGREL 75 MG TAB PO (09:39)
[2018-05-31] MEDS: POLYETHYLENE GLYCOL 17 GM PACKET PO ×2 (09:41→22:26)
[2018-05-31] MEDS: HEPARIN 5,000 UNIT/0.5 ML VIAL SC ×2 (09:41→22:27)
[2018-05-31] MEDS: ATORVASTATIN 20 MG TAB PO (22:25)
[2018-05-31] MEDS: ZOLPIDEM 5 MG TAB PO (22:25)
[2018-05-31] MEDS: LISINOPRIL 10 MG TAB PO (22:26)
[2018-06-01] MEDS: INSULIN ASPART [NOVOLOG] 3 ML PEN SC ×7 (07:35→21:00)
[2018-06-01] MEDS: INSULIN GLARGINE [LANTus] (100 UNITS/ML) SYG SC (08:32)
[2018-06-01] MEDS: LIDOCAINE 5% PATCH TD (09:18)
[2018-06-01] MEDS: POLYETHYLENE GLYCOL 17 GM PACKET PO ×2 (09:18→20:47)
[2018-06-01] MEDS: METOPROLOL (XL) 25 MG TAB PO ×2 (09:19→21:00)
[2018-06-01] MEDS: HEPARIN 5,000 UNIT/0.5 ML VIAL SC ×2 (09:19→20:51)
[2018-06-01] MEDS: CLOPIDOGREL 75 MG TAB PO (09:20)
[2018-06-01] MEDS: DOCUSATE SODIUM 100 MG CAP PO ×2 (09:20→20:50)
[2018-06-01] MEDS: ASPIRIN 81 MG TAB PO (09:20)
[2018-06-01] MEDS: AMLODIPINE 5 MG TAB PO (09:20)
[2018-06-01] MEDS: DULOXETINE 30 MG CAP DR PO (09:20)
[2018-06-01] MEDS: OXYCODONE/ACETAMINOPHEN (5/325) TAB PO ×2 (16:55→20:54)
[2018-06-01] MEDS: PE/SHARK OIL/MO/PETROL 30 GM OINT PR (17:34)
[2018-06-01] MEDS: PRAMOXINE 1% 15 GM RECT FOAM PR (20:39)
[2018-06-01] MEDS: BETHANECHOL 10 MG TAB PO (20:47)
[2018-06-01] MEDS: LISINOPRIL 10 MG TAB PO (20:48)
[2018-06-01] MEDS: ATORVASTATIN 20 MG TAB PO (20:49)
[2018-06-01] MEDS: ZOLPIDEM 5 MG TAB PO (22:59)
[2018-06-02] MEDS: INSULIN ASPART [NOVOLOG] 3 ML PEN SC ×7 (07:35→20:41)
[2018-06-02 07:51] LABS: ANION GAP 11 (8-16); BLOOD UREA NITROGEN 43 mg/dl (7-20); CALCIUM 9.2 mg/dl (8.4-10.2); CARBON DIOXIDE 30 mmol/L (21-31); CHLORIDE 102 mmol/L (97-110); CREATININE 1.85 mg/dl (0.44-1.00); GLUCOSE 107 mg/dl (70-220); PHOSPHORUS 5.5 mg/dl (2.5-4.9); POTASSIUM 5.1 mmol/L (3.5-5.1); SODIUM 138 mmol/L (135-144)
[2018-06-02] MEDS: INSULIN GLARGINE [LANTus] (100 UNITS/ML) SYG SC (08:16)
[2018-06-02] MEDS: POLYETHYLENE GLYCOL 17 GM PACKET PO ×2 (09:58→20:35)
[2018-06-02] MEDS: LIDOCAINE 5% PATCH TD (09:58)
[2018-06-02] MEDS: DOCUSATE SODIUM 100 MG CAP PO ×2 (09:58→20:35)
[2018-06-02] MEDS: DULOXETINE 30 MG CAP DR PO (09:59)
[2018-06-02] MEDS: CLOPIDOGREL 75 MG TAB PO (09:59)
[2018-06-02] MEDS: AMLODIPINE 5 MG TAB PO (09:59)
[2018-06-02] MEDS: METOPROLOL (XL) 25 MG TAB PO ×2 (09:59→20:35)
[2018-06-02] MEDS: BETHANECHOL 10 MG TAB PO ×3 (09:59→20:34)
[2018-06-02] MEDS: ASPIRIN 81 MG TAB PO (09:59)
[2018-06-02] MEDS: HEPARIN 5,000 UNIT/0.5 ML VIAL SC ×2 (10:00→20:37)
[2018-06-02] MEDS: LISINOPRIL 10 MG TAB PO (20:35)
[2018-06-02] MEDS: ATORVASTATIN 20 MG TAB PO (20:36)
[2018-06-02] MEDS: ZOLPIDEM 5 MG TAB PO (21:08)
[2018-06-02] MEDS: OXYCODONE/ACETAMINOPHEN (5/325) TAB PO (23:47)
[2018-06-03 07:02] LABS: ADD MAN DIFF? NO
[2018-06-03 07:07] LABS: BASOPHILS % 0.3 % (0.0-2.0); EOSINOPHILS # 0.1 10^3/ul (0.0-0.5); EOSINOPHILS % 1.3 % (0.0-7.0); HEMATOCRIT 34.7 % (37.0-47.0); HEMOGLOBIN 11.1 g/dl (12.0-16.0); LYMPHOCYTES # 3.9 10^3/ul (0.8-2.9); LYMPHOCYTES % 39.8 % (15.0-51.0); MEAN CORPUSCULAR HEMOGLOBIN 24.4 pg (29.0-33.0); MEAN CORPUSCULAR VOLUME 76.3 fl (82.0-101.0); MEAN PLATELET VOLUME 10.7 fl (7.4-10.4); MONOCYTE # 0.6 10^3/ul (0.3-0.9); MONOCYTES % 6.5 % (0.0-11.0); NEUTROPHIL # 5.1 10^3/ul (1.6-7.5); NEUTROPHILS % 51.6 % (39.0-77.0); PLATELET COUNT 380 10^3/UL (140-415); RED BLOOD COUNT 4.55 10^6/ul (4.20-5.40); RED CELL DISTRIBUTION WIDTH 15.1 % (11.5-14.5)
[2018-06-03 07:07] LABS: WHITE BLOOD COUNT 9.8 10^3/ul (4.8-10.8)
[2018-06-03] MEDS: INSULIN ASPART [NOVOLOG] 3 ML PEN SC ×7 (07:32→20:34)
[2018-06-03] MEDS: INSULIN GLARGINE [LANTus] (100 UNITS/ML) SYG SC (07:40)
[2018-06-03 08:29] LABS: ANION GAP 15 (8-16); BLOOD UREA NITROGEN 44 mg/dl (7-20); CALCIUM 9.3 mg/dl (8.4-10.2); CARBON DIOXIDE 28 mmol/L (21-31); CHLORIDE 100 mmol/L (97-110); CREATININE 1.87 mg/dl (0.44-1.00); GLUCOSE 119 mg/dl (70-220); MAGNESIUM 2.9 mg/dl (1.7-2.5); PHOSPHORUS 5.4 mg/dl (2.5-4.9); POTASSIUM 5.5 mmol/L (3.5-5.1); SODIUM 137 mmol/L (135-144)
[2018-06-03] MEDS: LIDOCAINE 5% PATCH TD (09:10)
[2018-06-03] MEDS: ASPIRIN 81 MG TAB PO (09:11)
[2018-06-03] MEDS: POLYETHYLENE GLYCOL 17 GM PACKET PO ×2 (09:11→20:22)
[2018-06-03] MEDS: DULOXETINE 30 MG CAP DR PO (09:12)
[2018-06-03] MEDS: CLOPIDOGREL 75 MG TAB PO (09:12)
[2018-06-03] MEDS: BETHANECHOL 10 MG TAB PO ×2 (09:12→12:15)
[2018-06-03] MEDS: METOPROLOL (XL) 25 MG TAB PO ×2 (09:12→20:25)
[2018-06-03] MEDS: AMLODIPINE 5 MG TAB PO (09:13)
[2018-06-03] MEDS: DOCUSATE SODIUM 100 MG CAP PO ×2 (09:13→20:22)
[2018-06-03] MEDS: HEPARIN 5,000 UNIT/0.5 ML VIAL SC ×2 (09:14→20:35)
[2018-06-03] MEDS: ERGOCALCIFEROL (8000 UNITS/ML PO SYG) PO (18:32)
[2018-06-03] MEDS: ATORVASTATIN 20 MG TAB PO (20:22)
[2018-06-03] MEDS: LISINOPRIL 10 MG TAB PO (20:24)
[2018-06-03] MEDS: BETHANECHOL 25 MG TAB PO (20:43)
[2018-06-03] MEDS ORDERED: BETHANECHOL 10 MG TAB PO (21:00)
[2018-06-03] MEDS: OXYCODONE/ACETAMINOPHEN (5/325) TAB PO (21:38)
[2018-06-03] MEDS: ZOLPIDEM 5 MG TAB PO (21:38)
[2018-06-04 07:39] LABS: ANION GAP 14 (8-16); BLOOD UREA NITROGEN 46 mg/dl (7-20); CALCIUM 9.1 mg/dl (8.4-10.2); CARBON DIOXIDE 26 mmol/L (21-31); CHLORIDE 102 mmol/L (97-110); CREATININE 1.79 mg/dl (0.44-1.00); GLUCOSE 147 mg/dl (70-220); POTASSIUM 5.5 mmol/L (3.5-5.1); SODIUM 136 mmol/L (135-144)
[2018-06-04 07:56] LABS: PHOSPHORUS 5.8 mg/dl (2.5-4.9)
[2018-06-04 08:19] LABS: MAGNESIUM 2.8 mg/dl (1.7-2.5)
[2018-06-04] MEDS: INSULIN ASPART [NOVOLOG] 3 ML PEN SC ×7 (08:23→21:00)
[2018-06-04] MEDS: INSULIN GLARGINE [LANTus] (100 UNITS/ML) SYG SC (08:27)
[2018-06-04] MEDS: POLYETHYLENE GLYCOL 17 GM PACKET PO ×2 (09:25→21:07)
[2018-06-04] MEDS: DULOXETINE 30 MG CAP DR PO (09:26)
[2018-06-04] MEDS: LIDOCAINE 5% PATCH TD (09:26)
[2018-06-04] MEDS: BETHANECHOL 25 MG TAB PO ×3 (09:26→21:08)
[2018-06-04] MEDS: METOPROLOL (XL) 25 MG TAB PO ×2 (09:27→21:09)
[2018-06-04] MEDS: ERGOCALCIFEROL 50,000 UNIT CAP PO (09:29)
[2018-06-04] MEDS: ASPIRIN 81 MG TAB PO (09:29)
[2018-06-04] MEDS: CLOPIDOGREL 75 MG TAB PO (09:29)
[2018-06-04] MEDS: OXYCODONE/ACETAMINOPHEN (5/325) TAB PO ×2 (09:29→17:45)
[2018-06-04] MEDS: DOCUSATE SODIUM 100 MG CAP PO ×2 (09:29→21:08)
[2018-06-04] MEDS: AMLODIPINE 5 MG TAB PO (09:34)
[2018-06-04] MEDS: HEPARIN 5,000 UNIT/0.5 ML VIAL SC ×2 (09:36→21:11)
[2018-06-04] MEDS: FLUDROCORTISONE 0.1 MG TAB PO (10:53)
[2018-06-04] MEDS: LISINOPRIL 10 MG TAB PO (21:08)
[2018-06-04] MEDS: ATORVASTATIN 20 MG TAB PO (21:08)
[2018-06-04] MEDS: ZOLPIDEM 5 MG TAB PO (21:53)
[2018-06-05] MEDS: OXYCODONE/ACETAMINOPHEN (5/325) TAB PO ×4 (05:50→19:41)
[2018-06-05] MEDS: INSULIN ASPART [NOVOLOG] 3 ML PEN SC ×7 (07:41→21:00)
[2018-06-05] MEDS: INSULIN GLARGINE [LANTus] (100 UNITS/ML) SYG SC (08:06)
[2018-06-05] MEDS: METOPROLOL (XL) 25 MG TAB PO ×2 (09:16→20:47)
[2018-06-05] MEDS: AMLODIPINE 5 MG TAB PO (09:16)
[2018-06-05] MEDS: HEPARIN 5,000 UNIT/0.5 ML VIAL SC ×2 (09:16→20:54)
[2018-06-05] MEDS: FLUDROCORTISONE 0.1 MG TAB PO (09:17)
[2018-06-05] MEDS: CLOPIDOGREL 75 MG TAB PO (09:17)
[2018-06-05] MEDS: BETHANECHOL 25 MG TAB PO ×3 (09:17→20:48)
[2018-06-05] MEDS: DOCUSATE SODIUM 100 MG CAP PO ×2 (09:17→20:50)
[2018-06-05] MEDS: POLYETHYLENE GLYCOL 17 GM PACKET PO ×2 (09:17→20:48)
[2018-06-05] MEDS: LIDOCAINE 5% PATCH TD (09:17)
[2018-06-05] MEDS: DULOXETINE 30 MG CAP DR PO (09:17)
[2018-06-05] MEDS: ASPIRIN 81 MG TAB PO (09:18)
[2018-06-05 11:16] LABS: ANION GAP 13 (8-16); BLOOD UREA NITROGEN 45 mg/dl (7-20); CALCIUM 8.9 mg/dl (8.4-10.2); CARBON DIOXIDE 26 mmol/L (21-31); CHLORIDE 102 mmol/L (97-110); CREATININE 1.81 mg/dl (0.44-1.00); GLUCOSE 195 mg/dl (70-220); MAGNESIUM 2.8 mg/dl (1.7-2.5); PHOSPHORUS 5.4 mg/dl (2.5-4.9); SODIUM 135 mmol/L (135-144)
[2018-06-05] MEDS: ONDANSETRON 4 MG TAB PO (14:40)
[2018-06-05] MEDS: ATORVASTATIN 20 MG TAB PO (20:42)
[2018-06-05] MEDS: LISINOPRIL 10 MG TAB PO (20:45)
[2018-06-05] MEDS: ZOLPIDEM 5 MG TAB PO (20:56)
[2018-06-06] MEDS: INSULIN ASPART [NOVOLOG] 3 ML PEN SC ×7 (07:35→21:00)
[2018-06-06] MEDS: POLYETHYLENE GLYCOL 17 GM PACKET PO ×2 (08:51→21:00)
[2018-06-06] MEDS: BETHANECHOL 25 MG TAB PO ×3 (08:54→20:40)
[2018-06-06] MEDS: CLOPIDOGREL 75 MG TAB PO (08:54)
[2018-06-06] MEDS: DULOXETINE 30 MG CAP DR PO (08:54)
[2018-06-06] MEDS: DOCUSATE SODIUM 100 MG CAP PO ×2 (08:54→20:39)
[2018-06-06] MEDS: METOPROLOL (XL) 25 MG TAB PO ×2 (08:54→20:43)
[2018-06-06] MEDS: ASPIRIN 81 MG TAB PO (08:54)
[2018-06-06] MEDS: LIDOCAINE 5% PATCH TD (08:54)
[2018-06-06] MEDS: FLUDROCORTISONE 0.1 MG TAB PO (08:55)
[2018-06-06] MEDS: AMLODIPINE 5 MG TAB PO (08:55)
[2018-06-06] MEDS: INSULIN GLARGINE [LANTus] (100 UNITS/ML) SYG SC (09:00)
[2018-06-06] MEDS: HEPARIN 5,000 UNIT/0.5 ML VIAL SC ×2 (09:00→20:49)
[2018-06-06 11:19] LABS: ADD MAN DIFF? NO
[2018-06-06 11:23] LABS: WHITE BLOOD COUNT 13.6 10^3/ul (4.8-10.8)
[2018-06-06 11:23] LABS: BASOPHILS % 0.1 % (0.0-2.0); EOSINOPHILS # 0.1 10^3/ul (0.0-0.5); HEMATOCRIT 33.6 % (37.0-47.0); HEMOGLOBIN 10.7 g/dl (12.0-16.0); LYMPHOCYTES # 2.3 10^3/ul (0.8-2.9); LYMPHOCYTES % 17.1 % (15.0-51.0); MEAN CORPUSCULAR HEMOGLOBIN 24.5 pg (29.0-33.0); MEAN CORPUSCULAR HGB CONC 31.8 g/dl (32.0-37.0); MEAN CORPUSCULAR VOLUME 77.1 fl (82.0-101.0); MEAN PLATELET VOLUME 11.2 fl (7.4-10.4); MONOCYTE # 0.6 10^3/ul (0.3-0.9); MONOCYTES % 4.5 % (0.0-11.0); NEUTROPHIL # 10.5 10^3/ul (1.6-7.5); PLATELET COUNT 351 10^3/UL (140-415); RED BLOOD COUNT 4.36 10^6/ul (4.20-5.40); RED CELL DISTRIBUTION WIDTH 15.3 % (11.5-14.5)
[2018-06-06 11:49] LABS: ANION GAP 11 (8-16); BLOOD UREA NITROGEN 42 mg/dl (7-20); CARBON DIOXIDE 29 mmol/L (21-31); CHLORIDE 99 mmol/L (97-110); CREATININE 1.83 mg/dl (0.44-1.00); GLUCOSE 290 mg/dl (70-220); MAGNESIUM 2.9 mg/dl (1.7-2.5); PHOSPHORUS 4.4 mg/dl (2.5-4.9); POTASSIUM 5.4 mmol/L (3.5-5.1); SODIUM 134 mmol/L (135-144)
[2018-06-06] MEDS: OXYCODONE/ACETAMINOPHEN (5/325) TAB PO (12:07)
[2018-06-06] MEDS: ATORVASTATIN 20 MG TAB PO (20:40)
[2018-06-06] MEDS: LISINOPRIL 10 MG TAB PO (20:42)
[2018-06-06] MEDS ORDERED: EXJADE 500 MG PO (21:00)
[2018-06-06] MEDS: ZOLPIDEM 5 MG TAB PO (23:16)
[2018-06-07 08:01] LABS: ANION GAP 12 (8-16); BLOOD UREA NITROGEN 48 mg/dl (7-20); CARBON DIOXIDE 25 mmol/L (21-31); CHLORIDE 104 mmol/L (97-110); GLUCOSE 125 mg/dl (70-220); MAGNESIUM 2.9 mg/dl (1.7-2.5); POTASSIUM 5.7 mmol/L (3.5-5.1); SODIUM 135 mmol/L (135-144)
[2018-06-07] MEDS: INSULIN ASPART [NOVOLOG] 3 ML PEN SC ×7 (08:45→21:00)
[2018-06-07] MEDS: INSULIN GLARGINE [LANTus] (100 UNITS/ML) SYG SC (08:48)
[2018-06-07] MEDS: METOPROLOL (XL) 25 MG TAB PO ×2 (09:00→20:46)
[2018-06-07] MEDS: CLOPIDOGREL 75 MG TAB PO (09:35)
[2018-06-07] MEDS: AMLODIPINE 5 MG TAB PO (09:35)
[2018-06-07] MEDS: ASPIRIN 81 MG TAB PO (09:35)
[2018-06-07] MEDS: DOCUSATE SODIUM 100 MG CAP PO ×2 (09:36→20:40)
[2018-06-07] MEDS: DULOXETINE 30 MG CAP DR PO (09:36)
[2018-06-07] MEDS: FLUDROCORTISONE 0.1 MG TAB PO (09:37)
[2018-06-07] MEDS: LIDOCAINE 5% PATCH TD (09:38)
[2018-06-07] MEDS: BETHANECHOL 25 MG TAB PO ×3 (09:40→20:40)
[2018-06-07] MEDS: HEPARIN 5,000 UNIT/0.5 ML VIAL SC ×2 (09:55→20:50)
[2018-06-07] MEDS: POLYETHYLENE GLYCOL 17 GM PACKET PO ×2 (09:55→21:00)
[2018-06-07] MEDS: ATORVASTATIN 20 MG TAB PO (20:40)
[2018-06-07] MEDS: ZOLPIDEM 5 MG TAB PO (21:03)
[2018-06-07] MEDS: LISINOPRIL 10 MG TAB PO (21:17)
[2018-06-07] MEDS ORDERED: NITROGLYCERIN (SL) 0.4 MG TAB SL (22:00)
[2018-06-07] MEDS: NITROGLYCERIN (SL) 0.4 MG TAB SL (22:15)
[2018-06-07 23:17] LABS: TROPONIN-I < 0.012 ng/ml (0.000-0.120)
[2018-06-07 23:17] LABS: ADD MAN DIFF? NO
[2018-06-07 23:19] LABS: BASOPHILS % 0.3 % (0.0-2.0); EOSINOPHILS # 0.2 10^3/ul (0.0-0.5); EOSINOPHILS % 1.3 % (0.0-7.0); HEMATOCRIT 30.5 % (37.0-47.0); HEMOGLOBIN 9.8 g/dl (12.0-16.0); LYMPHOCYTES # 4.1 10^3/ul (0.8-2.9); LYMPHOCYTES % 34.5 % (15.0-51.0); MEAN CORPUSCULAR HEMOGLOBIN 24.1 pg (29.0-33.0); MEAN CORPUSCULAR HGB CONC 32.1 g/dl (32.0-37.0); MEAN CORPUSCULAR VOLUME 75.1 fl (82.0-101.0); MEAN PLATELET VOLUME 10.6 fl (7.4-10.4); MONOCYTE # 0.6 10^3/ul (0.3-0.9); MONOCYTES % 5.3 % (0.0-11.0); NEUTROPHIL # 6.9 10^3/ul (1.6-7.5); NEUTROPHILS % 58.2 % (39.0-77.0); PLATELET COUNT 302 10^3/UL (140-415); RED BLOOD COUNT 4.06 10^6/ul (4.20-5.40); RED CELL DISTRIBUTION WIDTH 15.2 % (11.5-14.5)
[2018-06-07 23:19] LABS: WHITE BLOOD COUNT 11.9 10^3/ul (4.8-10.8)
[2018-06-07] MEDS: OXYCODONE/ACETAMINOPHEN (5/325) TAB PO (23:35)
[2018-06-07 23:37] LABS: ANION GAP 10 (8-16); BLOOD UREA NITROGEN 57 mg/dl (7-20); CALCIUM 8.9 mg/dl (8.4-10.2); CARBON DIOXIDE 27 mmol/L (21-31); CHLORIDE 99 mmol/L (97-110); CREATININE 1.83 mg/dl (0.44-1.00); GLUCOSE 130 mg/dl (70-220); POTASSIUM 5.1 mmol/L (3.5-5.1); SODIUM 131 mmol/L (135-144)
[2018-06-08 00:14] LABS: D-DIMER < 220.00 ng/ml (<460)
[2018-06-08 05:45] LABS: ANION GAP 12 (8-16); BLOOD UREA NITROGEN 56 mg/dl (7-20); CARBON DIOXIDE 27 mmol/L (21-31); CHLORIDE 102 mmol/L (97-110); CREATININE 1.87 mg/dl (0.44-1.00); GLUCOSE 101 mg/dl (70-220); PHOSPHORUS 5.8 mg/dl (2.5-4.9); POTASSIUM 4.9 mmol/L (3.5-5.1); SODIUM 136 mmol/L (135-144)
[2018-06-08 05:51] LABS: TROPONIN-I < 0.012 ng/ml (0.000-0.120)
[2018-06-08] MEDS: INSULIN ASPART [NOVOLOG] 3 ML PEN SC ×7 (07:35→20:59)
[2018-06-08] MEDS: INSULIN GLARGINE [LANTus] (100 UNITS/ML) SYG SC (08:30)
[2018-06-08] MEDS: LIDOCAINE 5% PATCH TD (09:33)
[2018-06-08] MEDS: POLYETHYLENE GLYCOL 17 GM PACKET PO ×2 (09:33→20:53)
[2018-06-08] MEDS: CLOPIDOGREL 75 MG TAB PO (09:33)
[2018-06-08] MEDS: ASPIRIN 81 MG TAB PO (09:33)
[2018-06-08] MEDS: DOCUSATE SODIUM 100 MG CAP PO ×2 (09:34→20:53)
[2018-06-08] MEDS: METOPROLOL (XL) 25 MG TAB PO ×2 (09:34→20:54)
[2018-06-08] MEDS: AMLODIPINE 5 MG TAB PO (09:34)
[2018-06-08] MEDS: FLUDROCORTISONE 0.1 MG TAB PO (09:34)
[2018-06-08] MEDS: BETHANECHOL 25 MG TAB PO ×3 (09:34→20:53)
[2018-06-08] MEDS: DULOXETINE 30 MG CAP DR PO (09:35)
[2018-06-08] MEDS: HEPARIN 5,000 UNIT/0.5 ML VIAL SC ×2 (09:35→21:05)
[2018-06-08 11:05] LABS: TROPONIN-I < 0.012 ng/ml (0.000-0.120)
[2018-06-08] MEDS: SEVELAMER CARBONATE 800 MG TABLET PO ×2 (12:35→18:09)
[2018-06-08] MEDS: ATORVASTATIN 20 MG TAB PO (20:53)
[2018-06-08] MEDS: LISINOPRIL 10 MG TAB PO (20:54)
[2018-06-09] MEDS: OXYCODONE/ACETAMINOPHEN (5/325) TAB PO ×2 (00:21→21:58)
[2018-06-09] MEDS: INSULIN ASPART [NOVOLOG] 3 ML PEN SC ×7 (07:35→20:16)
[2018-06-09] MEDS: INSULIN GLARGINE [LANTus] (100 UNITS/ML) SYG SC (08:14)
[2018-06-09] MEDS: SEVELAMER CARBONATE 800 MG TABLET PO ×3 (08:14→17:20)
[2018-06-09] MEDS: BETHANECHOL 25 MG TAB PO ×3 (08:54→20:20)
[2018-06-09] MEDS: LIDOCAINE 5% PATCH TD (08:54)
[2018-06-09] MEDS: POLYETHYLENE GLYCOL 17 GM PACKET PO ×2 (08:54→20:31)
[2018-06-09] MEDS: AMLODIPINE 5 MG TAB PO (08:54)
[2018-06-09] MEDS: FLUDROCORTISONE 0.1 MG TAB PO (08:54)
[2018-06-09] MEDS: METOPROLOL (XL) 25 MG TAB PO ×2 (08:55→20:21)
[2018-06-09] MEDS: DULOXETINE 30 MG CAP DR PO (08:55)
[2018-06-09] MEDS: DOCUSATE SODIUM 100 MG CAP PO ×2 (08:55→20:20)
[2018-06-09] MEDS: ASPIRIN 81 MG TAB PO (08:55)
[2018-06-09] MEDS: CLOPIDOGREL 75 MG TAB PO (08:55)
[2018-06-09] MEDS: HEPARIN 5,000 UNIT/0.5 ML VIAL SC ×2 (09:05→20:17)
[2018-06-09] MEDS: ATORVASTATIN 20 MG TAB PO (20:20)
[2018-06-09] MEDS: GABAPENTIN 100 MG CAP PO (20:20)
[2018-06-09] MEDS: LISINOPRIL 10 MG TAB PO (20:21)
[2018-06-09] MEDS: ZOLPIDEM 5 MG TAB PO (20:22)
[2018-06-10 07:07] LABS: ADD MAN DIFF? NO
[2018-06-10 07:08] LABS: BASOPHIL # 0.1 10^3/ul (0.0-0.1); BASOPHILS % 0.5 % (0.0-2.0); EOSINOPHILS # 0.2 10^3/ul (0.0-0.5); HEMATOCRIT 32.7 % (37.0-47.0); HEMOGLOBIN 10.5 g/dl (12.0-16.0); LYMPHOCYTES # 3.4 10^3/ul (0.8-2.9); LYMPHOCYTES % 31.3 % (15.0-51.0); MEAN CORPUSCULAR HEMOGLOBIN 24.3 pg (29.0-33.0); MEAN CORPUSCULAR HGB CONC 32.1 g/dl (32.0-37.0); MEAN CORPUSCULAR VOLUME 75.7 fl (82.0-101.0); MEAN PLATELET VOLUME 11.1 fl (7.4-10.4); MONOCYTE # 0.7 10^3/ul (0.3-0.9); MONOCYTES % 6.8 % (0.0-11.0); NEUTROPHIL # 6.5 10^3/ul (1.6-7.5); PLATELET COUNT 337 10^3/UL (140-415); RED BLOOD COUNT 4.32 10^6/ul (4.20-5.40); RED CELL DISTRIBUTION WIDTH 15.3 % (11.5-14.5)
[2018-06-10 07:08] LABS: WHITE BLOOD COUNT 10.9 10^3/ul (4.8-10.8)
[2018-06-10 07:34] LABS: ANION GAP 13 (8-16); BLOOD UREA NITROGEN 59 mg/dl (7-20); CALCIUM 9.2 mg/dl (8.4-10.2); CARBON DIOXIDE 26 mmol/L (21-31); CHLORIDE 103 mmol/L (97-110); CREATININE 1.87 mg/dl (0.44-1.00); GLUCOSE 125 mg/dl (70-220); PHOSPHORUS 5.7 mg/dl (2.5-4.9); POTASSIUM 5.1 mmol/L (3.5-5.1); SODIUM 137 mmol/L (135-144)
[2018-06-10] MEDS: SEVELAMER CARBONATE 800 MG TABLET PO ×3 (08:02→18:45)
[2018-06-10] MEDS: INSULIN ASPART [NOVOLOG] 3 ML PEN SC ×7 (08:04→20:20)
[2018-06-10] MEDS: INSULIN GLARGINE [LANTus] (100 UNITS/ML) SYG SC (08:07)
[2018-06-10] MEDS: CLOPIDOGREL 75 MG TAB PO (10:30)
[2018-06-10] MEDS: DULOXETINE 30 MG CAP DR PO (10:30)
[2018-06-10] MEDS: ASPIRIN 81 MG TAB PO (10:30)
[2018-06-10] MEDS: LIDOCAINE 5% PATCH TD (10:30)
[2018-06-10] MEDS: METOPROLOL (XL) 25 MG TAB PO ×2 (10:31→20:19)
[2018-06-10] MEDS: FLUDROCORTISONE 0.1 MG TAB PO (10:32)
[2018-06-10] MEDS: DOCUSATE SODIUM 100 MG CAP PO ×2 (10:32→20:18)
[2018-06-10] MEDS: BETHANECHOL 25 MG TAB PO ×3 (10:33→20:18)
[2018-06-10] MEDS: POLYETHYLENE GLYCOL 17 GM PACKET PO ×2 (10:33→20:18)
[2018-06-10] MEDS: AMLODIPINE 5 MG TAB PO (10:33)
[2018-06-10] MEDS: HEPARIN 5,000 UNIT/0.5 ML VIAL SC ×2 (10:34→20:27)
[2018-06-10] MEDS: ZOLPIDEM 5 MG TAB PO (20:18)
[2018-06-10] MEDS: ATORVASTATIN 20 MG TAB PO (20:18)
[2018-06-10] MEDS: GABAPENTIN 100 MG CAP PO (20:18)
[2018-06-10] MEDS: OXYCODONE/ACETAMINOPHEN (5/325) TAB PO (20:19)
[2018-06-10] MEDS: LISINOPRIL 10 MG TAB PO (20:22)
[2018-06-11 07:00] LABS: ANION GAP 10 (8-16); BLOOD UREA NITROGEN 60 mg/dl (7-20); CALCIUM 8.8 mg/dl (8.4-10.2); CARBON DIOXIDE 24 mmol/L (21-31); CHLORIDE 108 mmol/L (97-110); CREATININE 1.57 mg/dl (0.44-1.00); GLUCOSE 151 mg/dl (70-220); POTASSIUM 5.3 mmol/L (3.5-5.1); SODIUM 137 mmol/L (135-144)
[2018-06-11] MEDS: INSULIN ASPART [NOVOLOG] 3 ML PEN SC ×7 (08:03→21:00)
[2018-06-11] MEDS: SEVELAMER CARBONATE 800 MG TABLET PO ×3 (08:04→17:25)
[2018-06-11] MEDS: INSULIN GLARGINE [LANTus] (100 UNITS/ML) SYG SC (08:09)
[2018-06-11] MEDS: METOPROLOL (XL) 25 MG TAB PO ×2 (09:00→20:35)
[2018-06-11] MEDS: DULOXETINE 30 MG CAP DR PO (09:22)
[2018-06-11] MEDS: ASPIRIN 81 MG TAB PO (09:22)
[2018-06-11] MEDS: DOCUSATE SODIUM 100 MG CAP PO ×2 (09:22→20:29)
[2018-06-11] MEDS: FLUDROCORTISONE 0.1 MG TAB PO (09:23)
[2018-06-11] MEDS: POLYETHYLENE GLYCOL 17 GM PACKET PO ×2 (09:24→21:00)
[2018-06-11] MEDS: CLOPIDOGREL 75 MG TAB PO (09:25)
[2018-06-11] MEDS: BETHANECHOL 25 MG TAB PO ×3 (09:26→20:34)
[2018-06-11] MEDS: HEPARIN 5,000 UNIT/0.5 ML VIAL SC ×2 (09:27→20:32)
[2018-06-11] MEDS: LIDOCAINE 5% PATCH TD (09:28)
[2018-06-11] MEDS: ERGOCALCIFEROL 50,000 UNIT CAP PO (09:30)
[2018-06-11] MEDS: AMLODIPINE 5 MG TAB PO (09:43)
[2018-06-11] MEDS: ATORVASTATIN 20 MG TAB PO (20:30)
[2018-06-11] MEDS: LISINOPRIL 10 MG TAB PO (20:31)
[2018-06-11] MEDS: GABAPENTIN 100 MG CAP PO (20:31)
[2018-06-11] MEDS: ZOLPIDEM 5 MG TAB PO (22:55)
[2018-06-12] MEDS: INSULIN ASPART [NOVOLOG] 3 ML PEN SC ×7 (07:35→20:30)
[2018-06-12] MEDS: SEVELAMER CARBONATE 800 MG TABLET PO ×3 (08:10→17:55)
[2018-06-12] MEDS: INSULIN GLARGINE [LANTus] (100 UNITS/ML) SYG SC (08:11)
[2018-06-12] MEDS: DULOXETINE 30 MG CAP DR PO (09:40)
[2018-06-12] MEDS: ASPIRIN 81 MG TAB PO (09:41)
[2018-06-12] MEDS: BETHANECHOL 25 MG TAB PO ×3 (09:41→20:26)
[2018-06-12] MEDS: LIDOCAINE 5% PATCH TD (09:41)
[2018-06-12] MEDS: FLUDROCORTISONE 0.1 MG TAB PO (09:41)
[2018-06-12] MEDS: CLOPIDOGREL 75 MG TAB PO (09:41)
[2018-06-12] MEDS: METOPROLOL (XL) 25 MG TAB PO ×2 (09:41→20:28)
[2018-06-12] MEDS: AMLODIPINE 5 MG TAB PO (09:42)
[2018-06-12] MEDS: POLYETHYLENE GLYCOL 17 GM PACKET PO ×2 (09:42→20:36)
[2018-06-12] MEDS: DOCUSATE SODIUM 100 MG CAP PO ×2 (09:42→20:26)
[2018-06-12] MEDS: HEPARIN 5,000 UNIT/0.5 ML VIAL SC ×2 (09:57→20:29)
[2018-06-12] MEDS: OXYCODONE/ACETAMINOPHEN (5/325) TAB PO ×2 (18:03→22:33)
[2018-06-12] MEDS: ATORVASTATIN 20 MG TAB PO (20:26)
[2018-06-12] MEDS: GABAPENTIN 100 MG CAP PO (20:26)
[2018-06-12] MEDS: LISINOPRIL 10 MG TAB PO (20:27)
[2018-06-12] MEDS: ZOLPIDEM 5 MG TAB PO (22:38)
[2018-06-13 07:12] LABS: ANION GAP 12 (8-16); BLOOD UREA NITROGEN 50 mg/dl (7-20); CALCIUM 8.8 mg/dl (8.4-10.2); CARBON DIOXIDE 26 mmol/L (21-31); CHLORIDE 104 mmol/L (97-110); CREATININE 1.68 mg/dl (0.44-1.00); GLUCOSE 149 mg/dl (70-220); PHOSPHORUS 4.8 mg/dl (2.5-4.9); POTASSIUM 4.5 mmol/L (3.5-5.1); SODIUM 137 mmol/L (135-144)
[2018-06-13] MEDS: SEVELAMER CARBONATE 800 MG TABLET PO ×2 (08:43→12:15)
[2018-06-13] MEDS: INSULIN ASPART [NOVOLOG] 3 ML PEN SC ×4 (08:44→12:16)
[2018-06-13] MEDS: INSULIN GLARGINE [LANTus] (100 UNITS/ML) SYG SC (08:46)
[2018-06-13] MEDS: POLYETHYLENE GLYCOL 17 GM PACKET PO (09:34)
[2018-06-13] MEDS: LIDOCAINE 5% PATCH TD (09:35)
[2018-06-13] MEDS: ASPIRIN 81 MG TAB PO (09:36)
[2018-06-13] MEDS: DULOXETINE 30 MG CAP DR PO (09:36)
[2018-06-13] MEDS: DOCUSATE SODIUM 100 MG CAP PO (09:36)
[2018-06-13] MEDS: CLOPIDOGREL 75 MG TAB PO (09:36)
[2018-06-13] MEDS: BETHANECHOL 25 MG TAB PO ×2 (09:38→12:15)
[2018-06-13] MEDS: FLUDROCORTISONE 0.1 MG TAB PO (09:38)
[2018-06-13] MEDS: METOPROLOL (XL) 25 MG TAB PO (09:38)
[2018-06-13] MEDS: HEPARIN 5,000 UNIT/0.5 ML VIAL SC (09:39)
[2018-06-13] MEDS: AMLODIPINE 5 MG TAB PO (09:40)
== END 2018-06-13 14:00 | DRG 56 ==
LOC: VRC 17:31
PROC: F07Z9FZ Gait Training/Functional Ambulation Treatment using Assistive, Adaptive, Supportive or Protective Equipment (ICD-10-PCS; principal; 2018-05-23)
PROC: F07Z8FZ Transfer Training Treatment using Assistive, Adaptive, Supportive or Protective Equipment (ICD-10-PCS; 2018-05-23)
PROC: F07Z5FZ Bed Mobility Treatment using Assistive, Adaptive, Supportive or Protective Equipment (ICD-10-PCS; 2018-05-23)
PROC: F08Z2FZ Grooming/Personal Hygiene Treatment using Assistive, Adaptive, Supportive or Protective Equipment (ICD-10-PCS; 2018-05-23)
PROC: F08Z0FZ Bathing/Showering Techniques Treatment using Assistive, Adaptive, Supportive or Protective Equipment (ICD-10-PCS; 2018-05-23)
PROC: F08Z1FZ Dressing Techniques Treatment using Assistive, Adaptive, Supportive or Protective Equipment (ICD-10-PCS; 2018-05-23)
DX: I69.398 Other sequelae of cerebral infarction (principal); N17.0 Acute kidney failure with tubular necrosis; F33.2 Major depressive disorder, recurrent severe without psychotic features; N39.0 Urinary tract infection, site not specified; E87.0 Hyperosmolality and hypernatremia; R33.8 Other retention of urine; E11.21 Type 2 diabetes mellitus with diabetic nephropathy; I12.9 Hypertensive chronic kidney disease with stage 1 through stage 4 chronic kidney disease, or unspecified chronic kidney disease; E11.22 Type 2 diabetes mellitus with diabetic chronic kidney disease; F41.9 Anxiety disorder, unspecified; Z91.14 Patient's other noncompliance with medication regimen; E66.9 Obesity, unspecified; E11.319 Type 2 diabetes mellitus with unspecified diabetic retinopathy without macular edema; E11.39 Type 2 diabetes mellitus with other diabetic ophthalmic complication; H54.8 Legal blindness, as defined in USA; N18.2 Chronic kidney disease, stage 2 (mild); F34.1 Dysthymic disorder; E55.9 Vitamin D deficiency, unspecified; R07.9 Chest pain, unspecified; I25.10 Atherosclerotic heart disease of native coronary artery without angina pectoris; K59.00 Constipation, unspecified
CPT/HCPCS: 71045; 74018; 80048; 81001; 82575; 82962; 83036; 83735; 84100; 84156; 84484; 85025; 85378; 87081; 87086; 92507; 92523; 92610; 93005; 97110; 97112; 97116; 97150; 97163; 97167; 97530; 97535; 97542

== ENCOUNTER 2018-06-27 21:26 | Inpatient (IN) | payer OTHER ==
[2018-06-27 21:58] LABS: ADD MAN DIFF? NO
[2018-06-27 22:01] LABS: BASOPHILS % 0.2 % (0.0-2.0); EOSINOPHILS # 0.2 10^3/ul (0.0-0.5); EOSINOPHILS % 1.7 % (0.0-7.0); HEMATOCRIT 32.7 % (37.0-47.0); HEMOGLOBIN 10.4 g/dl (12.0-16.0); LYMPHOCYTES # 4.3 10^3/ul (0.8-2.9); LYMPHOCYTES % 33.4 % (15.0-51.0); MEAN CORPUSCULAR HEMOGLOBIN 24.6 pg (29.0-33.0); MEAN CORPUSCULAR HGB CONC 31.8 g/dl (32.0-37.0); MEAN CORPUSCULAR VOLUME 77.3 fl (82.0-101.0); MEAN PLATELET VOLUME 10.7 fl (7.4-10.4); MONOCYTE # 0.8 10^3/ul (0.3-0.9); MONOCYTES % 5.8 % (0.0-11.0); NEUTROPHIL # 7.6 10^3/ul (1.6-7.5); NEUTROPHILS % 58.2 % (39.0-77.0); PLATELET COUNT 338 10^3/UL (140-415); RED BLOOD COUNT 4.23 10^6/ul (4.20-5.40); RED CELL DISTRIBUTION WIDTH 15.9 % (11.5-14.5)
[2018-06-27 22:19] LABS: INR 0.91; PROTIME 12.3 Sec (11.9-14.9)
[2018-06-27 22:20] LABS: PARTIAL THROMBOPLASTIN TIME 30.1 Sec (23.0-35.0)
[2018-06-27 22:21] LABS: ADD UMIC YES; UR ASCORBIC ACID 20 mg/dL (NEGATIVE); UR BILIRUBIN (Dip) NEGATIVE (NEGATIVE); UR BLOOD (Dip) NEGATIVE (NEGATIVE); UR CLARITY CLEAR (CLEAR); UR COLOR YELLOW (YELLOW); UR GLUCOSE (Dip) NEGATIVE (NEGATIVE); UR KETONES (Dip) NEGATIVE (NEGATIVE); UR LEUKOCYTE ESTERASE (Dip) TRACE Leu/ul (NEGATIVE); UR NITRITE (Dip) NEGATIVE (NEGATIVE); UR RBC 4 /HPF (0-5); UR SPECIFIC GRAVITY (Dip) 1.013 (1.003-1.030); UR SQUAMOUS EPITHELIAL CELL FEW /HPF (FEW); UR TOTAL PROTEIN (Dip) 2+ mg/dl (NEGATIVE); UR UROBILINOGEN (Dip) NEGATIVE (NEGATIVE); UR WBC 40 /HPF (0-5)
[2018-06-27 22:22] LABS: ANION GAP 10 (5-13); BLOOD UREA NITROGEN 40 mg/dl (7-20); CARBON DIOXIDE 24 mmol/L (21-31); CHLORIDE 105 mmol/L (97-110); CREATININE 2.38 mg/dl (0.44-1.00); Estimated GFR 26 mL/min (>60); GLUCOSE 134 mg/dl (70-220); SODIUM 139 mmol/L (135-144)
[2018-06-27 22:23] LABS: POTASSIUM 5.5 mmol/L (3.5-5.1)
[2018-06-27 22:33] LABS: TROPONIN-I < 0.012 ng/ml (0.000-0.120)
[2018-06-27] MEDS ORDERED: ACETAMINOPHEN 325 MG TAB PO (23:30)
[2018-06-27] MEDS ORDERED: ONDANSETRON 4 MG INJ IV (23:30)
[2018-06-27] MEDS: CEFTRIAXONE 1 GM/50 ML (PMX) 50 ML IVPB (23:32)
[2018-06-27] MEDS: NA BICARBONATE 8.4% 50 ML SYG IV (23:32)
[2018-06-28 02:41] LABS: LACTIC ACID 1.3 mmol/L (0.5-2.0)
[2018-06-28] MEDS ORDERED: GLUCAGON 1 MG INJ IM (04:00)
[2018-06-28] MEDS ORDERED: GLUCOSE GEL 15 GRAM TUBE BUCCAL (04:00)
[2018-06-28] MEDS ORDERED: DEXTROSE 50% 50 ML SYRINGE IV ×2 (04:00)
[2018-06-28] MEDS ORDERED: GLUCOSE GEL 15 GRAM TUBE PO ×2 (04:00)
[2018-06-28 07:28] LABS: ADD MAN DIFF? NO
[2018-06-28 07:32] LABS: BASOPHILS % 0.5 % (0.0-2.0); EOSINOPHILS # 0.2 10^3/ul (0.0-0.5); HEMATOCRIT 30.8 % (37.0-47.0); HEMOGLOBIN 9.8 g/dl (12.0-16.0); LYMPHOCYTES # 3.2 10^3/ul (0.8-2.9); LYMPHOCYTES % 36.9 % (15.0-51.0); MEAN CORPUSCULAR HEMOGLOBIN 24.6 pg (29.0-33.0); MEAN CORPUSCULAR HGB CONC 31.8 g/dl (32.0-37.0); MEAN CORPUSCULAR VOLUME 77.4 fl (82.0-101.0); MEAN PLATELET VOLUME 10.5 fl (7.4-10.4); MONOCYTE # 0.6 10^3/ul (0.3-0.9); MONOCYTES % 6.3 % (0.0-11.0); NEUTROPHIL # 4.7 10^3/ul (1.6-7.5); NEUTROPHILS % 53.8 % (39.0-77.0); PLATELET COUNT 298 10^3/UL (140-415); RED BLOOD COUNT 3.98 10^6/ul (4.20-5.40); RED CELL DISTRIBUTION WIDTH 15.8 % (11.5-14.5)
[2018-06-28 07:32] LABS: WHITE BLOOD COUNT 8.7 10^3/ul (4.8-10.8)
[2018-06-28 07:51] LABS: IRON 77 ug/dl (35-150)
[2018-06-28 07:52] LABS: ALANINE AMINOTRANSFERASE 28 IU/L (13-69); ALBUMIN/GLOBULIN RATIO 0.88; ALKALINE PHOSPHATASE 75 IU/L (42-121); ANION GAP 8 (5-13); ASPARTATE AMINO TRANSFERASE 24 IU/L (15-46); BLOOD UREA NITROGEN 37 mg/dl (7-20); CALCIUM 8.9 mg/dl (8.4-10.2); CARBON DIOXIDE 24 mmol/L (21-31); CHLORIDE 108 mmol/L (97-110); CREATININE 2.26 mg/dl (0.44-1.00); Estimated GFR 28 mL/min (>60); GLUCOSE 156 mg/dl (70-220); POTASSIUM 5.3 mmol/L (3.5-5.1); SODIUM 140 mmol/L (135-144); TOTAL PROTEIN 6.4 g/dl (6.1-8.1)
[2018-06-28 08:00] LABS: % IRON SATURATION 31 % SAT (22-52); TOTAL IRON BINDING CAPACITY 251 ug/dl (241-421)
[2018-06-28 08:26] LABS: FERRITIN 97.4 ng/ml (11.1-264.0)
[2018-06-28] MEDS: INSULIN ASPART [NOVOLOG] 3 ML PEN SC ×4 (08:57→21:00)
[2018-06-28] MEDS ORDERED: DOCUSATE SODIUM 250 MG CAP PO (11:00)
[2018-06-28] MEDS ORDERED: ONDANSETRON 4 MG INJ IV (11:00)
[2018-06-28] MEDS ORDERED: PRAMOXINE/HC 10 GM RECT FOAM PR (11:00)
[2018-06-28] MEDS: BISACODYL 10 MG SUPP PR (11:00)
[2018-06-28] MEDS: LEVOFLOXACIN 500 MG TAB PO (11:38)
[2018-06-28] MEDS: SEVELAMER 800 MG TAB PO ×2 (11:38→17:46)
[2018-06-28] MEDS: ASPIRIN (EC) 81 MG TAB PO (11:38)
[2018-06-28] MEDS: SOD CHLORIDE 0.9% 1,000 ML IV ×2 (11:40→21:10)
[2018-06-28 12:00] LABS: OCCULT BLOOD STOOL NEGATIVE (NEGATIVE)
[2018-06-28] MEDS: BETHANECHOL 25 MG TAB PO ×2 (12:34→21:00)
[2018-06-28 19:31] LABS: HAAIG REFLEX REFLEX FILED
[2018-06-28 20:30] LABS: HEPATITIS B SURFACE ANTIGEN NEGATIVE (NEGATIVE)
[2018-06-28 20:47] LABS: HEPATITIS C VIRAL ANTIBODY NEGATIVE (NEGATIVE); HIV 1&2 ANTIBODY NEGATIVE (NEGATIVE)
[2018-06-28 20:48] LABS: HEPATITIS B CORE ANTIBODY NEGATIVE (NEGATIVE)
[2018-06-28] MEDS ORDERED: ZOLPIDEM 5 MG TAB PO (21:00)
[2018-06-28] MEDS: ATORVASTATIN 40 MG TAB PO (21:00)
[2018-06-28] MEDS: GABAPENTIN 300 MG CAP PO (21:05)
[2018-06-28] MEDS: LACTOBACILLUS RHAMNOSUS CAP PO (21:05)
[2018-06-28] MEDS: METOPROLOL (XL) 25 MG TAB PO (21:08)
[2018-06-28] MEDS: ZOLPIDEM 5 MG TAB PO (22:09)
[2018-06-29] MEDS: ACCU-CHEK XX (01:19)
[2018-06-29] MEDS: LEVOFLOXACIN 250 MG TAB PO (06:32)
[2018-06-29 06:43] LABS: ADD MAN DIFF? NO
[2018-06-29 06:50] LABS: BASOPHIL # 0.1 10^3/ul (0.0-0.1); BASOPHILS % 0.5 % (0.0-2.0); EOSINOPHILS # 0.2 10^3/ul (0.0-0.5); HEMATOCRIT 29.1 % (37.0-47.0); HEMOGLOBIN 9.3 g/dl (12.0-16.0); LYMPHOCYTES # 4.1 10^3/ul (0.8-2.9); LYMPHOCYTES % 38.7 % (15.0-51.0); MEAN CORPUSCULAR HEMOGLOBIN 24.7 pg (29.0-33.0); MEAN CORPUSCULAR VOLUME 77.2 fl (82.0-101.0); MEAN PLATELET VOLUME 11.2 fl (7.4-10.4); MONOCYTE # 0.6 10^3/ul (0.3-0.9); NEUTROPHIL # 5.6 10^3/ul (1.6-7.5); NEUTROPHILS % 52.3 % (39.0-77.0); PLATELET COUNT 291 10^3/UL (140-415); RED BLOOD COUNT 3.77 10^6/ul (4.20-5.40); RED CELL DISTRIBUTION WIDTH 15.9 % (11.5-14.5)
[2018-06-29 06:50] LABS: WHITE BLOOD COUNT 10.7 10^3/ul (4.8-10.8)
[2018-06-29 07:11] LABS: LIPASE 235 U/L (23-300)
[2018-06-29 07:11] LABS: ANION GAP 9 (5-13); Estimated GFR 36 mL/min (>60)
[2018-06-29 07:15] LABS: BLOOD UREA NITROGEN 34 mg/dl (7-20); CARBON DIOXIDE 21 mmol/L (21-31); CHLORIDE 109 mmol/L (97-110); GLUCOSE 166 mg/dl (70-220); MAGNESIUM 2.1 mg/dl (1.7-2.5); PHOSPHORUS 3.9 mg/dl (2.5-4.9); SODIUM 139 mmol/L (135-144)
[2018-06-29] MEDS: SOD CHLORIDE 0.9% 1,000 ML IV ×3 (07:23→22:24)
[2018-06-29] MEDS: INSULIN ASPART [NOVOLOG] 3 ML PEN SC ×4 (08:34→20:41)
[2018-06-29] MEDS: ASPIRIN (EC) 81 MG TAB PO (08:35)
[2018-06-29] MEDS: BETHANECHOL 25 MG TAB PO ×3 (08:35→20:37)
[2018-06-29] MEDS: SEVELAMER 800 MG TAB PO ×3 (08:35→17:11)
[2018-06-29] MEDS: LACTOBACILLUS RHAMNOSUS CAP PO ×2 (08:38→20:36)
[2018-06-29] MEDS: DULOXETINE 30 MG CAP DR PO (08:38)
[2018-06-29] MEDS: GABAPENTIN 300 MG CAP PO ×2 (08:38→20:36)
[2018-06-29] MEDS: ENOXAPARIN 30 MG/0.3 ML SYG SC (08:39)
[2018-06-29] MEDS: METOPROLOL (XL) 25 MG TAB PO (08:39)
[2018-06-29] MEDS: BISACODYL 10 MG SUPP PR (11:00)
[2018-06-29] MEDS: ATORVASTATIN 40 MG TAB PO (20:37)
[2018-06-29] MEDS: ZOLPIDEM 5 MG TAB PO (20:49)
[2018-06-30] MEDS: ACCU-CHEK XX (01:36)
[2018-06-30] MEDS: LEVOFLOXACIN 250 MG TAB PO (05:25)
[2018-06-30 07:01] LABS: ADD MAN DIFF? NO
[2018-06-30 07:05] LABS: WHITE BLOOD COUNT 9.5 10^3/ul (4.8-10.8)
[2018-06-30 07:05] LABS: BASOPHILS % 0.4 % (0.0-2.0); EOSINOPHILS # 0.2 10^3/ul (0.0-0.5); EOSINOPHILS % 1.8 % (0.0-7.0); HEMATOCRIT 29.4 % (37.0-47.0); HEMOGLOBIN 9.4 g/dl (12.0-16.0); LYMPHOCYTES # 3.9 10^3/ul (0.8-2.9); LYMPHOCYTES % 41.4 % (15.0-51.0); MEAN CORPUSCULAR HEMOGLOBIN 24.9 pg (29.0-33.0); MEAN CORPUSCULAR VOLUME 77.8 fl (82.0-101.0); MEAN PLATELET VOLUME 11.3 fl (7.4-10.4); MONOCYTE # 0.5 10^3/ul (0.3-0.9); MONOCYTES % 5.4 % (0.0-11.0); NEUTROPHIL # 4.8 10^3/ul (1.6-7.5); NEUTROPHILS % 50.7 % (39.0-77.0); PLATELET COUNT 292 10^3/UL (140-415); RED BLOOD COUNT 3.78 10^6/ul (4.20-5.40); RED CELL DISTRIBUTION WIDTH 15.9 % (11.5-14.5)
[2018-06-30 07:29] LABS: ANION GAP 6 (5-13); BLOOD UREA NITROGEN 32 mg/dl (7-20); CALCIUM 8.9 mg/dl (8.4-10.2); CARBON DIOXIDE 20 mmol/L (21-31); CHLORIDE 113 mmol/L (97-110); CREATININE 1.42 mg/dl (0.44-1.00); Estimated GFR 47 mL/min (>60); GLUCOSE 203 mg/dl (70-220); POTASSIUM 5.2 mmol/L (3.5-5.1); SODIUM 139 mmol/L (135-144)
[2018-06-30] MEDS: INSULIN ASPART [NOVOLOG] 3 ML PEN SC ×3 (08:42→17:29)
[2018-06-30] MEDS: ENOXAPARIN 30 MG/0.3 ML SYG SC (08:43)
[2018-06-30] MEDS: GABAPENTIN 300 MG CAP PO (08:44)
[2018-06-30] MEDS: LACTOBACILLUS RHAMNOSUS CAP PO (08:44)
[2018-06-30] MEDS: DULOXETINE 30 MG CAP DR PO (08:44)
[2018-06-30] MEDS: BETHANECHOL 25 MG TAB PO ×2 (08:44→13:02)
[2018-06-30] MEDS: ASPIRIN (EC) 81 MG TAB PO (08:44)
[2018-06-30] MEDS: SEVELAMER 800 MG TAB PO ×3 (08:44→17:34)
[2018-06-30] MEDS: METOPROLOL (XL) 25 MG TAB PO (08:44)
[2018-06-30] MEDS: BISACODYL 10 MG SUPP PR (11:00)
[2018-06-30] MEDS: SOD CHLORIDE 0.9% 1,000 ML IV (13:00)
[2018-06-30] MEDS: AMLODIPINE 10 MG TAB PO (13:09)
== END 2018-06-30 18:20 | DRG 683 ==
LOC: PP2 23:30 → E/R 21:26
DX: N17.9 Acute kidney failure, unspecified (principal); N39.0 Urinary tract infection, site not specified; R65.10 Systemic inflammatory response syndrome (SIRS) of non-infectious origin without acute organ dysfunction; E11.21 Type 2 diabetes mellitus with diabetic nephropathy; E11.65 Type 2 diabetes mellitus with hyperglycemia; E87.5 Hyperkalemia; E88.81 Metabolic syndrome and other insulin resistance; N18.3 Chronic kidney disease, stage 3 (moderate); E11.22 Type 2 diabetes mellitus with diabetic chronic kidney disease; I65.23 Occlusion and stenosis of bilateral carotid arteries; I12.9 Hypertensive chronic kidney disease with stage 1 through stage 4 chronic kidney disease, or unspecified chronic kidney disease; D63.1 Anemia in chronic kidney disease; H54.8 Legal blindness, as defined in USA; E78.5 Hyperlipidemia, unspecified; I69.391 Dysphagia following cerebral infarction; Z91.14 Patient's other noncompliance with medication regimen; Z79.4 Long term (current) use of insulin; Z79.82 Long term (current) use of aspirin
CPT/HCPCS: 36415; 71045; 80048; 80053; 81001; 82270; 82728; 82962; 83540; 83605; 83690; 83735; 84100; 84443; 84484; 85025; 85610; 85730; 86703; 86704; 86709; 86803; 87040; 87045; 87081; 87086; 87340; 93005; 99285-25

== ENCOUNTER 2018-12-11 21:48 | Inpatient (IN) | payer OTHER ==
[2018-12-11] MEDS: IOHEXOL 100 ML (22:14)
[2018-12-11] MEDS: SOD CHLORIDE 0.9% 100 ML (22:14)
[2018-12-11 22:46] LABS: ADD MAN DIFF? NO
[2018-12-11] MEDS: SOD CHLORIDE 0.9% 500 ML IV (22:47)
[2018-12-11 22:50] LABS: BASOPHILS % 0.4 % (0.0-2.0); EOSINOPHILS # 0.1 10^3/ul (0.0-0.5); EOSINOPHILS % 1.3 % (0.0-7.0); HEMATOCRIT 32.9 % (37.0-47.0); HEMOGLOBIN 10.7 g/dl (12.0-16.0); LYMPHOCYTES # 3.5 10^3/ul (0.8-2.9); LYMPHOCYTES % 41.6 % (15.0-51.0); MEAN CORPUSCULAR HEMOGLOBIN 23.9 pg (29.0-33.0); MEAN CORPUSCULAR HGB CONC 32.5 g/dl (32.0-37.0); MEAN CORPUSCULAR VOLUME 73.6 fl (82.0-101.0); MONOCYTE # 0.5 10^3/ul (0.3-0.9); MONOCYTES % 5.7 % (0.0-11.0); NEUTROPHIL # 4.3 10^3/ul (1.6-7.5); NEUTROPHILS % 50.8 % (39.0-77.0); PLATELET COUNT 271 10^3/UL (140-415); RED BLOOD COUNT 4.47 10^6/ul (4.20-5.40); RED CELL DISTRIBUTION WIDTH 16.6 % (11.5-14.5)
[2018-12-11 22:50] LABS: WHITE BLOOD COUNT 8.4 10^3/ul (4.8-10.8)
[2018-12-11 22:59] LABS: HEMOGLOBIN A1C 9.6 % (0-5.9)
[2018-12-11 23:06] LABS: ALANINE AMINOTRANSFERASE 12 IU/L (13-69); ALBUMIN 3.4 g/dl (3.3-4.9); ALKALINE PHOSPHATASE 77 IU/L (42-121); ANION GAP 6 (5-13); ASPARTATE AMINO TRANSFERASE 16 IU/L (15-46); BILIRUBIN,INDIRECT 0.3 mg/dl (0-1.1); BILIRUBIN,TOTAL 0.3 mg/dl (0.2-1.3); BLOOD UREA NITROGEN 30 mg/dl (7-20); CALCIUM 9.2 mg/dl (8.4-10.2); CARBON DIOXIDE 24 mmol/L (21-31); CHLORIDE 105 mmol/L (97-110); CHOL/HDL RATIO 5.1 RATIO; CHOLESTEROL 271 mg/dl (100-200); CREATINE KINASE 82 IU/L (23-200); CREATININE 1.71 mg/dl (0.44-1.00); Estimated GFR 38 mL/min (>60); GLUCOSE 287 mg/dl (70-220); HDL CHOLESTEROL 53 mg/dl (37-92); LDL CHOLESTEROL,CALCULATED 173 mg/dl; POTASSIUM 5.1 mmol/L (3.5-5.1); SODIUM 135 mmol/L (135-144); TOTAL PROTEIN 6.8 g/dl (6.1-8.1); TRIGLYCERIDES 226 mg/dl (0-149)
[2018-12-11 23:09] LABS: INR 0.89; PROTIME 12.1 Sec (11.9-14.9); PT RATIO 0.9
[2018-12-11 23:10] LABS: PARTIAL THROMBOPLASTIN TIME 29.2 Sec (23.0-35.0)
[2018-12-11 23:16] LABS: ETHANOL < 10.0 mg/dl (0-0)
[2018-12-11 23:17] LABS: CK INDEX 0.6; CK-MB 0.46 ng/ml (0.0-2.4); TROPONIN-I < 0.012 ng/ml (0.000-0.120)
[2018-12-12] MEDS ORDERED: GLUCOSE GEL 15 GRAM TUBE BUCCAL (01:00)
[2018-12-12] MEDS ORDERED: DEXTROSE 50% 50 ML SYRINGE IV ×2 (01:00)
[2018-12-12] MEDS ORDERED: GLUCOSE GEL 15 GRAM TUBE PO ×2 (01:00)
[2018-12-12] MEDS ORDERED: NACL 0.9% 3 ML SYG IV (01:00)
[2018-12-12] MEDS ORDERED: GLUCAGON 1 MG INJ IM (01:00)
[2018-12-12] MEDS ORDERED: ALBUTEROL/IPRATROPIUM (NEB) 3 ML AMP HHN (01:00)
[2018-12-12] MEDS ORDERED: ONDANSETRON 4 MG INJ IV (01:00)
[2018-12-12] MEDS: BISACODYL 10 MG SUPP PR (01:09)
[2018-12-12] MEDS: ASPIRIN 81 MG TAB PO ×2 (01:09→08:09)
[2018-12-12] MEDS: ZOLPIDEM 5 MG TAB PO ×2 (02:27→22:24)
[2018-12-12] MEDS: ACCU-CHEK XX (02:29)
[2018-12-12] MEDS: INSULIN ASPART [NOVOLOG] 3 ML PEN SC ×5 (02:57→20:42)
[2018-12-12 05:38] LABS: ADD MAN DIFF? NO
[2018-12-12 05:46] LABS: WHITE BLOOD COUNT 9.8 10^3/ul (4.8-10.8)
[2018-12-12 05:46] LABS: BASOPHILS % 0.4 % (0.0-2.0); EOSINOPHILS # 0.1 10^3/ul (0.0-0.5); EOSINOPHILS % 1.1 % (0.0-7.0); HEMATOCRIT 34.2 % (37.0-47.0); HEMOGLOBIN 11.3 g/dl (12.0-16.0); LYMPHOCYTES # 3.9 10^3/ul (0.8-2.9); MEAN CORPUSCULAR HEMOGLOBIN 24.2 pg (29.0-33.0); MEAN CORPUSCULAR VOLUME 73.2 fl (82.0-101.0); MEAN PLATELET VOLUME 11.4 fl (7.4-10.4); MONOCYTE # 0.5 10^3/ul (0.3-0.9); MONOCYTES % 4.7 % (0.0-11.0); NEUTROPHIL # 5.3 10^3/ul (1.6-7.5); NEUTROPHILS % 53.4 % (39.0-77.0); PLATELET COUNT 284 10^3/UL (140-415); RED BLOOD COUNT 4.67 10^6/ul (4.20-5.40); RED CELL DISTRIBUTION WIDTH 16.9 % (11.5-14.5)
[2018-12-12 06:36] LABS: HEMOGLOBIN A1C 9.5 % (0-5.9)
[2018-12-12 06:40] LABS: ALANINE AMINOTRANSFERASE 15 IU/L (13-69); ALBUMIN 3.4 g/dl (3.3-4.9); ALBUMIN/GLOBULIN RATIO 1.13; ALKALINE PHOSPHATASE 73 IU/L (42-121); ANION GAP 9 (5-13); ASPARTATE AMINO TRANSFERASE 18 IU/L (15-46); BILIRUBIN,INDIRECT 0.1 mg/dl (0-1.1); BILIRUBIN,TOTAL 0.1 mg/dl (0.2-1.3); BLOOD UREA NITROGEN 28 mg/dl (7-20); CALCIUM 9.3 mg/dl (8.4-10.2); CARBON DIOXIDE 23 mmol/L (21-31); CHLORIDE 106 mmol/L (97-110); CHOL/HDL RATIO 5.3 RATIO; CHOLESTEROL 294 mg/dl (100-200); CREATININE 1.48 mg/dl (0.44-1.00); Estimated GFR 45 mL/min (>60); GLUCOSE 262 mg/dl (70-220); HDL CHOLESTEROL 55 mg/dl (37-92); LDL CHOLESTEROL,CALCULATED 181 mg/dl; MAGNESIUM 2.2 mg/dl (1.7-2.5); POTASSIUM 4.7 mmol/L (3.5-5.1); SODIUM 138 mmol/L (135-144); TOTAL PROTEIN 6.4 g/dl (6.1-8.1); TRIGLYCERIDES 292 mg/dl (0-149)
[2018-12-12] MEDS: GABAPENTIN 300 MG CAP PO ×2 (08:09→20:17)
[2018-12-12] MEDS: HEPARIN 5,000 UNIT/1 ML VIAL SC ×2 (08:36→20:42)
[2018-12-12] MEDS ORDERED: NIFEdipine (XL) 30 MG TAB PO (12:00)
[2018-12-12] MEDS: CLOPIDOGREL 75 MG TAB PO (13:30)
[2018-12-12] MEDS: AMLODIPINE 10 MG TAB PO (14:18)
[2018-12-12] MEDS: SOD CHLORIDE 0.45% 1,000 ML IV (14:21)
[2018-12-12 15:11] LABS: ADD UMIC YES; UR ASCORBIC ACID NEGATIVE (NEGATIVE); UR BILIRUBIN (Dip) NEGATIVE (NEGATIVE); UR BLOOD (Dip) 1+ mg/dL (NEGATIVE); UR CLARITY SLIGHTLY CLOUDY (CLEAR); UR COLOR STRAW (YELLOW); UR GLUCOSE (Dip) 2+ mg/dL (NEGATIVE); UR KETONES (Dip) NEGATIVE (NEGATIVE); UR LEUKOCYTE ESTERASE (Dip) 2+ Leu/ul (NEGATIVE); UR NITRITE (Dip) NEGATIVE (NEGATIVE); UR RBC 4 /HPF (0-5); UR SPECIFIC GRAVITY (Dip) 1.016 (1.003-1.030); UR TOTAL PROTEIN (Dip) 2+ mg/dl (NEGATIVE); UR UROBILINOGEN (Dip) NEGATIVE (NEGATIVE); UR WBC 100 /HPF (0-5)
[2018-12-12 15:39] LABS: SODIUM,URINE RANDOM 88 mmol/L (30-90)
[2018-12-12 16:10] LABS: AMPHETAMINE/METHAMPHETAMINE NEGATIVE (NEGATIVE); BARBITURATES NEGATIVE (NEGATIVE); BENZODIAZEPINES NEGATIVE (NEGATIVE); CANNABINOIDS POSITIVE (NEGATIVE); COCAINE NEGATIVE (NEGATIVE); OPIATES NEGATIVE (NEGATIVE)
[2018-12-12] MEDS ORDERED: INSULIN GLARGINE [LANTus] (100 UNITS/ML) SYG SC (20:00)
[2018-12-12] MEDS: ATORVASTATIN 40 MG TAB PO (20:17)
[2018-12-12] MEDS: hydrALAzine 20 MG INJ IV (20:18)
[2018-12-12] MEDS: INSULIN GLARGINE [LANTus] (100 UNITS/ML) SYG SC (20:42)
[2018-12-13] MEDS: BISACODYL 10 MG SUPP PR (01:22)
[2018-12-13] MEDS: SOD CHLORIDE 0.45% 1,000 ML IV ×2 (01:50→06:26)
[2018-12-13] MEDS: ACCU-CHEK XX (02:14)
[2018-12-13] MEDS: INSULIN ASPART [NOVOLOG] 3 ML PEN SC ×5 (08:04→20:38)
[2018-12-13] MEDS: CLOPIDOGREL 75 MG TAB PO ×2 (09:00→12:52)
[2018-12-13] MEDS: ASPIRIN 81 MG TAB PO (09:12)
[2018-12-13] MEDS: GABAPENTIN 300 MG CAP PO ×2 (09:13→20:31)
[2018-12-13] MEDS: AMLODIPINE 10 MG TAB PO (09:13)
[2018-12-13] MEDS: HEPARIN 5,000 UNIT/1 ML VIAL SC ×2 (09:45→20:39)
[2018-12-13 10:10] LABS: ADD MAN DIFF? NO
[2018-12-13 10:13] LABS: BASOPHILS % 0.4 % (0.0-2.0); EOSINOPHILS # 0.1 10^3/ul (0.0-0.5); EOSINOPHILS % 1.3 % (0.0-7.0); HEMATOCRIT 35.9 % (37.0-47.0); HEMOGLOBIN 11.5 g/dl (12.0-16.0); LYMPHOCYTES % 44.4 % (15.0-51.0); MEAN CORPUSCULAR HEMOGLOBIN 23.4 pg (29.0-33.0); MEAN PLATELET VOLUME 11.3 fl (7.4-10.4); MONOCYTE # 0.4 10^3/ul (0.3-0.9); NEUTROPHIL # 4.5 10^3/ul (1.6-7.5); NEUTROPHILS % 49.6 % (39.0-77.0); PLATELET COUNT 307 10^3/UL (140-415); RED BLOOD COUNT 4.92 10^6/ul (4.20-5.40); RED CELL DISTRIBUTION WIDTH 16.8 % (11.5-14.5)
[2018-12-13 10:38] LABS: ANION GAP 5 (5-13); BLOOD UREA NITROGEN 25 mg/dl (7-20); CALCIUM 9.5 mg/dl (8.4-10.2); CARBON DIOXIDE 26 mmol/L (21-31); CHLORIDE 108 mmol/L (97-110); CREATININE 1.84 mg/dl (0.44-1.00); Estimated GFR 35 mL/min (>60); GLUCOSE 222 mg/dl (70-220); MAGNESIUM 2.2 mg/dl (1.7-2.5); PHOSPHORUS 4.9 mg/dl (2.5-4.9); SODIUM 139 mmol/L (135-144)
[2018-12-13 11:42] LABS: ERYTHROCYTE SEDIMENTATION RATE 65 mm/Hr (0-30)
[2018-12-13] MEDS ORDERED: CLOPIDOGREL 75 MG TAB PO (12:00)
[2018-12-13] MEDS: CEFTRIAXONE 1 GM/50 ML (PMX) 50 ML IVPB (15:07)
[2018-12-13 16:46] LABS: CREATININE, RANDOM URINE 46 mg/dL (20-275); MICROALBUMIN 98.5 mg/dL; MICROALBUMIN/CREATININE RATIO 2141 (<30)
[2018-12-13 16:57] LABS: RAPID PLASMA REAGIN NONREACTIVE (NR)
[2018-12-13] MEDS: ATORVASTATIN 40 MG TAB PO (20:30)
[2018-12-13] MEDS: INSULIN GLARGINE [LANTus] (100 UNITS/ML) SYG SC (20:39)
[2018-12-13] MEDS: ZOLPIDEM 5 MG TAB PO (22:10)
[2018-12-14] MEDS: BISACODYL 10 MG SUPP PR (01:32)
[2018-12-14] MEDS: ACCU-CHEK XX (01:33)
[2018-12-14 06:10] LABS: ADD MAN DIFF? NO
[2018-12-14 06:17] LABS: BASOPHIL # 0.1 10^3/ul (0.0-0.1); BASOPHILS % 0.7 % (0.0-2.0); EOSINOPHILS # 0.1 10^3/ul (0.0-0.5); EOSINOPHILS % 1.6 % (0.0-7.0); HEMATOCRIT 36.2 % (37.0-47.0); HEMOGLOBIN 11.6 g/dl (12.0-16.0); LYMPHOCYTES # 2.5 10^3/ul (0.8-2.9); LYMPHOCYTES % 32.9 % (15.0-51.0); MEAN CORPUSCULAR HEMOGLOBIN 23.5 pg (29.0-33.0); MEAN CORPUSCULAR VOLUME 73.3 fl (82.0-101.0); MEAN PLATELET VOLUME 11.5 fl (7.4-10.4); MONOCYTE # 0.5 10^3/ul (0.3-0.9); MONOCYTES % 6.5 % (0.0-11.0); NEUTROPHIL # 4.4 10^3/ul (1.6-7.5); PLATELET COUNT 294 10^3/UL (140-415); RED BLOOD COUNT 4.94 10^6/ul (4.20-5.40); RED CELL DISTRIBUTION WIDTH 16.8 % (11.5-14.5)
[2018-12-14 06:17] LABS: WHITE BLOOD COUNT 7.5 10^3/ul (4.8-10.8)
[2018-12-14 06:41] LABS: ANION GAP 8 (5-13); BLOOD UREA NITROGEN 31 mg/dl (7-20); CALCIUM 9.5 mg/dl (8.4-10.2); CARBON DIOXIDE 25 mmol/L (21-31); CHLORIDE 104 mmol/L (97-110); CREATININE 1.63 mg/dl (0.44-1.00); Estimated GFR 40 mL/min (>60); GLUCOSE 235 mg/dl (70-220); MAGNESIUM 2.1 mg/dl (1.7-2.5); PHOSPHORUS 5.2 mg/dl (2.5-4.9); POTASSIUM 4.6 mmol/L (3.5-5.1); SODIUM 137 mmol/L (135-144)
[2018-12-14] MEDS: INSULIN ASPART [NOVOLOG] 3 ML PEN SC ×4 (07:48→21:07)
[2018-12-14] MEDS: AMLODIPINE 10 MG TAB PO (08:56)
[2018-12-14] MEDS: ASPIRIN 81 MG TAB PO (08:56)
[2018-12-14] MEDS: GABAPENTIN 300 MG CAP PO ×2 (08:56→21:57)
[2018-12-14] MEDS: CLOPIDOGREL 75 MG TAB PO (09:07)
[2018-12-14] MEDS: HEPARIN 5,000 UNIT/1 ML VIAL SC ×2 (09:09→21:51)
[2018-12-14] MEDS ORDERED: LISINOPRIL 20 MG TAB PO (13:00)
[2018-12-14] MEDS: NIFEdipine (XL) 30 MG TAB PO (13:53)
[2018-12-14] MEDS: CEFTRIAXONE 1 GM/50 ML (PMX) 50 ML IVPB (13:53)
[2018-12-14] MEDS ORDERED: POLYETHYLENE GLYCOL 17 GM PACKET PO (17:00)
[2018-12-14] MEDS: LISINOPRIL 10 MG TAB PO (17:52)
[2018-12-14] MEDS: ATORVASTATIN 40 MG TAB PO ×2 (21:00→21:57)
[2018-12-14] MEDS: INSULIN GLARGINE [LANTus] (100 UNITS/ML) SYG SC (21:07)
[2018-12-15] MEDS: ZOLPIDEM 5 MG TAB PO ×2 (00:06→23:48)
[2018-12-15] MEDS: hydrALAzine 20 MG INJ IV ×3 (00:38→23:52)
[2018-12-15] MEDS: ACCU-CHEK XX (01:01)
[2018-12-15 05:35] LABS: ADD MAN DIFF? NO
[2018-12-15 05:40] LABS: WHITE BLOOD COUNT 9.5 10^3/ul (4.8-10.8)
[2018-12-15 05:40] LABS: BASOPHIL # 0.1 10^3/ul (0.0-0.1); BASOPHILS % 0.5 % (0.0-2.0); EOSINOPHILS # 0.2 10^3/ul (0.0-0.5); EOSINOPHILS % 1.6 % (0.0-7.0); HEMATOCRIT 33.3 % (37.0-47.0); HEMOGLOBIN 10.8 g/dl (12.0-16.0); LYMPHOCYTES # 3.3 10^3/ul (0.8-2.9); LYMPHOCYTES % 34.7 % (15.0-51.0); MEAN CORPUSCULAR HEMOGLOBIN 23.6 pg (29.0-33.0); MEAN CORPUSCULAR HGB CONC 32.4 g/dl (32.0-37.0); MEAN CORPUSCULAR VOLUME 72.7 fl (82.0-101.0); MEAN PLATELET VOLUME 11.5 fl (7.4-10.4); MONOCYTE # 0.5 10^3/ul (0.3-0.9); MONOCYTES % 5.2 % (0.0-11.0); NEUTROPHIL # 5.5 10^3/ul (1.6-7.5); NEUTROPHILS % 57.6 % (39.0-77.0); PLATELET COUNT 290 10^3/UL (140-415); RED BLOOD COUNT 4.58 10^6/ul (4.20-5.40); RED CELL DISTRIBUTION WIDTH 16.7 % (11.5-14.5)
[2018-12-15 06:07] LABS: ANION GAP 8 (5-13); BLOOD UREA NITROGEN 34 mg/dl (7-20); CALCIUM 9.5 mg/dl (8.4-10.2); CARBON DIOXIDE 22 mmol/L (21-31); CHLORIDE 109 mmol/L (97-110); Estimated GFR 32 mL/min (>60); GLUCOSE 168 mg/dl (70-220); MAGNESIUM 2.2 mg/dl (1.7-2.5); POTASSIUM 4.2 mmol/L (3.5-5.1); SODIUM 139 mmol/L (135-144)
[2018-12-15] MEDS: INSULIN ASPART [NOVOLOG] 3 ML PEN SC ×4 (09:31→21:00)
[2018-12-15] MEDS: HEPARIN 5,000 UNIT/1 ML VIAL SC ×2 (09:32→21:25)
[2018-12-15] MEDS: CLOPIDOGREL 75 MG TAB PO (09:32)
[2018-12-15] MEDS: AMLODIPINE 10 MG TAB PO ×2 (09:33→10:17)
[2018-12-15] MEDS: ASPIRIN 81 MG TAB PO (09:34)
[2018-12-15] MEDS: DOCUSATE SODIUM 10 MG/ML (10ML CUP) PO ×2 (09:34→20:51)
[2018-12-15] MEDS: GABAPENTIN 300 MG CAP PO ×2 (09:36→20:51)
[2018-12-15] MEDS: DIPHENHYDRAMINE 50 MG INJ IV (13:56)
[2018-12-15] MEDS: METHYLPREDNISOLONE 40 MG INJ IV ×2 (13:58→20:52)
[2018-12-15] MEDS: CEFTRIAXONE 1 GM/50 ML (PMX) 50 ML IVPB (16:03)
[2018-12-15] MEDS ORDERED: INSULIN GLARGINE [LANTus] (100 UNITS/ML) SYG SC (19:00)
[2018-12-15] MEDS: INSULIN GLARGINE [LANTus] (100 UNITS/ML) SYG SC ×2 (20:00→22:23)
[2018-12-15] MEDS: ATORVASTATIN 40 MG TAB PO (20:52)
[2018-12-16] MEDS: INSULIN ASPART [NOVOLOG] 3 ML PEN SC ×6 (02:23→21:14)
[2018-12-16] MEDS: ACCU-CHEK XX ×3 (02:24→21:18)
[2018-12-16 05:55] LABS: ADD MAN DIFF? NO
[2018-12-16 05:57] LABS: BASOPHILS % 0.2 % (0.0-2.0); HEMATOCRIT 33.9 % (37.0-47.0); LYMPHOCYTES # 1.9 10^3/ul (0.8-2.9); MEAN CORPUSCULAR HEMOGLOBIN 23.9 pg (29.0-33.0); MEAN CORPUSCULAR HGB CONC 32.4 g/dl (32.0-37.0); MEAN CORPUSCULAR VOLUME 73.5 fl (82.0-101.0); MEAN PLATELET VOLUME 11.5 fl (7.4-10.4); MONOCYTE # 0.2 10^3/ul (0.3-0.9); MONOCYTES % 2.3 % (0.0-11.0); NEUTROPHILS % 77.9 % (39.0-77.0); PLATELET COUNT 315 10^3/UL (140-415); RED BLOOD COUNT 4.61 10^6/ul (4.20-5.40)
[2018-12-16 05:57] LABS: WHITE BLOOD COUNT 10.2 10^3/ul (4.8-10.8)
[2018-12-16 06:45] LABS: ANION GAP 11 (5-13); BLOOD UREA NITROGEN 40 mg/dl (7-20); CALCIUM 9.5 mg/dl (8.4-10.2); CARBON DIOXIDE 23 mmol/L (21-31); CHLORIDE 105 mmol/L (97-110); CREATININE 1.77 mg/dl (0.44-1.00); Estimated GFR 36 mL/min (>60); GLUCOSE 290 mg/dl (70-220); PHOSPHORUS 4.6 mg/dl (2.5-4.9); POTASSIUM 4.9 mmol/L (3.5-5.1); SODIUM 139 mmol/L (135-144)
[2018-12-16 07:23] LABS: MAGNESIUM 2.4 mg/dl (1.7-2.5)
[2018-12-16] MEDS ORDERED: LISINOPRIL 10 MG TAB PO (09:00)
[2018-12-16] MEDS: HEPARIN 5,000 UNIT/1 ML VIAL SC ×2 (09:13→20:56)
[2018-12-16] MEDS: ASPIRIN 81 MG TAB PO (09:16)
[2018-12-16] MEDS: METHYLPREDNISOLONE 40 MG INJ IV ×2 (09:16→20:45)
[2018-12-16] MEDS: DOCUSATE SODIUM 10 MG/ML (10ML CUP) PO ×2 (09:16→20:45)
[2018-12-16] MEDS: CLOPIDOGREL 75 MG TAB PO (09:16)
[2018-12-16] MEDS: GABAPENTIN 300 MG CAP PO ×2 (09:16→20:45)
[2018-12-16 10:11] LABS: ADD UMIC YES; UR ASCORBIC ACID NEGATIVE (NEGATIVE); UR BILIRUBIN (Dip) NEGATIVE (NEGATIVE); UR BLOOD (Dip) 1+ mg/dL (NEGATIVE); UR CLARITY CLEAR (CLEAR); UR COLOR YELLOW (YELLOW); UR GLUCOSE (Dip) 1+ mg/dL (NEGATIVE); UR KETONES (Dip) NEGATIVE (NEGATIVE); UR LEUKOCYTE ESTERASE (Dip) NEGATIVE Leu/ul (NEGATIVE); UR NITRITE (Dip) NEGATIVE (NEGATIVE); UR RBC 0 /HPF (0-5); UR SPECIFIC GRAVITY (Dip) 1.012 (1.003-1.030); UR TOTAL PROTEIN (Dip) 2+ mg/dl (NEGATIVE); UR UROBILINOGEN (Dip) NEGATIVE (NEGATIVE); UR WBC 4 /HPF (0-5)
[2018-12-16] MEDS: BARIUM SULFATE 135 ML (E-Z HD) PO (11:30)
[2018-12-16] MEDS: FAMOTIDINE 20 MG TAB PO (14:08)
[2018-12-16] MEDS: DIPHENHYDRAMINE 50 MG INJ IV ×2 (14:09→20:44)
[2018-12-16] MEDS: DEXTROSE 5%-0.45% NACL 1,000 ML IV (14:09)
[2018-12-16] MEDS: CEFTRIAXONE 1 GM/50 ML (PMX) 50 ML IVPB (14:12)
[2018-12-16] MEDS: INSULIN GLARGINE [LANTus] (100 UNITS/ML) SYG SC ×2 (15:07→21:15)
[2018-12-16] MEDS: hydrALAzine 20 MG INJ IV (16:28)
[2018-12-16] MEDS: CLONIDINE 0.2 MG/24 HR PATCH TRANSDERM (17:38)
[2018-12-16] MEDS: LABETALOL HCL 20MG INJ IV (18:25)
[2018-12-16 20:20] LABS: TROPONIN-I 0.085 ng/ml (0.000-0.120)
[2018-12-16] MEDS: ACETAMINOPHEN 325 MG TAB PO (20:44)
[2018-12-16] MEDS: ATORVASTATIN 40 MG TAB PO (20:45)
[2018-12-16] MEDS: SOD CHLORIDE 0.9% 1,000 ML IV (21:17)
[2018-12-16] MEDS: ZOLPIDEM 5 MG TAB PO (23:06)
[2018-12-17 01:18] LABS: TROPONIN-I 0.157 ng/ml (0.000-0.120)
[2018-12-17] MEDS: ACCU-CHEK XX ×4 (03:00→22:13)
[2018-12-17] MEDS: DIPHENHYDRAMINE 50 MG INJ IV ×3 (06:04→21:48)
[2018-12-17 06:23] LABS: ADD MAN DIFF? NO
[2018-12-17 06:34] LABS: WHITE BLOOD COUNT 12.2 10^3/ul (4.8-10.8)
[2018-12-17 06:34] LABS: BASOPHILS % 0.2 % (0.0-2.0); HEMATOCRIT 33.3 % (37.0-47.0); HEMOGLOBIN 10.7 g/dl (12.0-16.0); LYMPHOCYTES # 1.4 10^3/ul (0.8-2.9); LYMPHOCYTES % 11.1 % (15.0-51.0); MEAN CORPUSCULAR HEMOGLOBIN 23.7 pg (29.0-33.0); MEAN CORPUSCULAR HGB CONC 32.1 g/dl (32.0-37.0); MEAN CORPUSCULAR VOLUME 73.8 fl (82.0-101.0); MEAN PLATELET VOLUME 11.6 fl (7.4-10.4); MONOCYTE # 0.4 10^3/ul (0.3-0.9); NEUTROPHIL # 10.4 10^3/ul (1.6-7.5); NEUTROPHILS % 85.2 % (39.0-77.0); PLATELET COUNT 321 10^3/UL (140-415); RED BLOOD COUNT 4.51 10^6/ul (4.20-5.40); RED CELL DISTRIBUTION WIDTH 17.4 % (11.5-14.5)
[2018-12-17 06:59] LABS: ANION GAP 8 (5-13); BLOOD UREA NITROGEN 40 mg/dl (7-20); CALCIUM 9.5 mg/dl (8.4-10.2); CARBON DIOXIDE 23 mmol/L (21-31); CHLORIDE 109 mmol/L (97-110); CREATININE 1.76 mg/dl (0.44-1.00); Estimated GFR 37 mL/min (>60); GLUCOSE 349 mg/dl (70-220); MAGNESIUM 2.5 mg/dl (1.7-2.5); PHOSPHORUS 4.3 mg/dl (2.5-4.9); POTASSIUM 5.1 mmol/L (3.5-5.1); SODIUM 140 mmol/L (135-144)
[2018-12-17 07:29] LABS: TRIIODOTHYRONINE 0.51 ng/ml (0.97-1.69)
[2018-12-17 07:37] LABS: FREE T4 (FREE THYROXINE) 0.81 ng/dl (0.64-1.79)
[2018-12-17] MEDS: INSULIN ASPART [NOVOLOG] 3 ML PEN SC ×3 (07:57→18:23)
[2018-12-17] MEDS: METHYLPREDNISOLONE 40 MG INJ IV (08:34)
[2018-12-17] MEDS: ASPIRIN 81 MG TAB PO (08:44)
[2018-12-17] MEDS: GABAPENTIN 300 MG CAP PO ×2 (08:44→20:52)
[2018-12-17] MEDS: DOCUSATE SODIUM 10 MG/ML (10ML CUP) PO (08:44)
[2018-12-17] MEDS: FAMOTIDINE 20 MG TAB PO (08:45)
[2018-12-17] MEDS: CLOPIDOGREL 75 MG TAB PO (08:45)
[2018-12-17] MEDS: HEPARIN 5,000 UNIT/1 ML VIAL SC (08:55)
[2018-12-17] MEDS: hydrALAzine 20 MG INJ IV ×2 (11:40→16:15)
[2018-12-17] MEDS: SOD CHLORIDE 0.9% 1,000 ML IV ×2 (11:45→19:54)
[2018-12-17] MEDS ORDERED: ASPIRIN (EC) 81 MG TAB PO (12:07)
[2018-12-17] MEDS: ASPIRIN (EC) 81 MG TAB PO (12:31)
[2018-12-17] MEDS: NITROGLYCERIN (SL) 0.4 MG TAB SL ×3 (12:33→13:09)
[2018-12-17] MEDS: INSULIN GLARGINE [LANTus] (100 UNITS/ML) SYG SC (12:49)
[2018-12-17] MEDS: METOPROLOL 5 MG INJ IV (13:24)
[2018-12-17] MEDS: NITROGLYCERIN 2% 1 GM OINT PKT TD (13:37)
[2018-12-17] MEDS ORDERED: HEPARIN 1000 UNITS/ML 10 ML INJ IV (14:00)
[2018-12-17] MEDS ORDERED: IODIXANOL LOCM 100 ML BTL (14:04)
[2018-12-17] MEDS ORDERED: LIDOCAINE 1% (MDV) 20 ML INJ (14:04)
[2018-12-17 14:24] LABS: ADD MAN DIFF? NO
[2018-12-17 14:27] LABS: BASOPHILS % 0.2 % (0.0-2.0); HEMATOCRIT 32.6 % (37.0-47.0); HEMOGLOBIN 10.5 g/dl (12.0-16.0); LYMPHOCYTES # 1.4 10^3/ul (0.8-2.9); LYMPHOCYTES % 9.9 % (15.0-51.0); MEAN CORPUSCULAR HGB CONC 32.2 g/dl (32.0-37.0); MEAN CORPUSCULAR VOLUME 74.6 fl (82.0-101.0); MEAN PLATELET VOLUME 11.5 fl (7.4-10.4); MONOCYTE # 0.5 10^3/ul (0.3-0.9); MONOCYTES % 3.4 % (0.0-11.0); NEUTROPHIL # 12.1 10^3/ul (1.6-7.5); NEUTROPHILS % 85.5 % (39.0-77.0); PLATELET COUNT 337 10^3/UL (140-415); RED BLOOD COUNT 4.37 10^6/ul (4.20-5.40); RED CELL DISTRIBUTION WIDTH 17.3 % (11.5-14.5)
[2018-12-17 14:27] LABS: WHITE BLOOD COUNT 14.1 10^3/ul (4.8-10.8)
[2018-12-17] MEDS ORDERED: FENTAnyl 50 MCG/ML VIAL (14:31)
[2018-12-17 14:32] LABS: INR 0.93; PROTIME 12.6 Sec (11.9-14.9)
[2018-12-17 14:33] LABS: PARTIAL THROMBOPLASTIN TIME 26.2 Sec (23.0-35.0)
[2018-12-17 14:41] LABS: MAGNESIUM 2.5 mg/dl (1.7-2.5)
[2018-12-17 14:41] LABS: CREATINE KINASE 138 IU/L (23-200)
[2018-12-17 14:50] LABS: CK INDEX 1.8; CK-MB 2.44 ng/ml (0.0-2.4)
[2018-12-17] MEDS ORDERED: BIVALIRUDIN 250MG /NS 50 ML 50 ML IVPB (15:20)
[2018-12-17] MEDS ORDERED: IOHEXOL 350MG/ML 50 ML BTL (15:47)
[2018-12-17] MEDS: CEFTRIAXONE 1 GM/50 ML (PMX) 50 ML IVPB (16:16)
[2018-12-17] MEDS ORDERED: NITROGLYCERIN 50 MG/D5W (PMX) 250 ML IV (17:00)
[2018-12-17] MEDS: NITROGLYCERIN 50 MG/D5W (PMX) 250 ML IV (17:38)
[2018-12-17] MEDS: HEPARIN 25000 UNITS/D5W 250 ML IV (18:08)
[2018-12-17] MEDS ORDERED: DEXTROSE 50% 50 ML SYRINGE IV ×4 (19:30→23:30)
[2018-12-17] MEDS ORDERED: INSULIN GLARGINE [LANTus] (100 UNITS/ML) SYG SC (19:30)
[2018-12-17] MEDS ORDERED: INSULIN HUMAN REGULAR 100 UNIT in SOD CHLORIDE 0.9% 99 ML IV (20:00)
[2018-12-17] MEDS: ATORVASTATIN 40 MG TAB PO (20:52)
[2018-12-17] MEDS: MENTHOL/METH SALICYLATE 30 GM OINT TOP (20:53)
[2018-12-17] MEDS: METOPROLOL 100 MG TAB PO (20:53)
[2018-12-18] MEDS ORDERED: GLUCAGON 1 MG INJ IM (00:30)
[2018-12-18] MEDS ORDERED: GLUCOSE GEL 15 GRAM TUBE PO ×2 (00:30)
[2018-12-18] MEDS ORDERED: GLUCOSE GEL 15 GRAM TUBE BUCCAL (00:30)
[2018-12-18] MEDS ORDERED: DEXTROSE 50% 50 ML SYRINGE IV ×2 (00:30)
[2018-12-18] MEDS: INSULIN ASPART [NOVOLOG] 3 ML PEN SC ×7 (00:41→22:38)
[2018-12-18] MEDS: ACCU-CHEK XX ×6 (00:42→21:00)
[2018-12-18 01:50] LABS: PARTIAL THROMBOPLASTIN TIME 75.8 Sec (23.0-35.0)
[2018-12-18] MEDS ORDERED: LIDOCAINE 1% (MDV) 20 ML INJ INJ (04:40)
[2018-12-18 05:43] LABS: ADD MAN DIFF? NO
[2018-12-18 05:47] LABS: ABNORMAL IP MESSAGE 1; BASOPHIL # 0.1 10^3/ul (0.0-0.1); BASOPHILS % 0.4 % (0.0-2.0); EOSINOPHILS # 0.1 10^3/ul (0.0-0.5); EOSINOPHILS % 0.4 % (0.0-7.0); HEMATOCRIT 30.7 % (37.0-47.0); HEMOGLOBIN 9.9 g/dl (12.0-16.0); LYMPHOCYTES # 6.4 10^3/ul (0.8-2.9); LYMPHOCYTES % 38.3 % (15.0-51.0); MEAN CORPUSCULAR HEMOGLOBIN 24.2 pg (29.0-33.0); MEAN CORPUSCULAR HGB CONC 32.2 g/dl (32.0-37.0); MEAN CORPUSCULAR VOLUME 75.1 fl (82.0-101.0); MEAN PLATELET VOLUME 11.3 fl (7.4-10.4); NEUTROPHIL # 9.1 10^3/ul (1.6-7.5); NEUTROPHILS % 54.3 % (39.0-77.0); PLATELET COUNT 314 10^3/UL (140-415); RED BLOOD COUNT 4.09 10^6/ul (4.20-5.40); RED CELL DISTRIBUTION WIDTH 17.4 % (11.5-14.5)
[2018-12-18 05:47] LABS: WHITE BLOOD COUNT 16.7 10^3/ul (4.8-10.8)
[2018-12-18] MEDS: DIPHENHYDRAMINE 50 MG INJ IV (05:50)
[2018-12-18 05:54] LABS: POSITIVE DIFF @See below
[2018-12-18 06:08] LABS: INR 1.04; PROTIME 13.7 Sec (11.9-14.9); PT RATIO 1.1
[2018-12-18 06:13] LABS: PARTIAL THROMBOPLASTIN TIME 88.3 Sec (23.0-35.0)
[2018-12-18 06:31] LABS: ALANINE AMINOTRANSFERASE 17 IU/L (13-69); ALBUMIN 3.4 g/dl (3.3-4.9); ALBUMIN/GLOBULIN RATIO 1.09; ALKALINE PHOSPHATASE 61 IU/L (42-121); ANION GAP 0 (5-13); ASPARTATE AMINO TRANSFERASE 18 IU/L (15-46); BILIRUBIN,INDIRECT 0.2 mg/dl (0-1.1); BILIRUBIN,TOTAL 0.2 mg/dl (0.2-1.3); BLOOD UREA NITROGEN 37 mg/dl (7-20); CALCIUM 9.1 mg/dl (8.4-10.2); CARBON DIOXIDE 30 mmol/L (21-31); CHLORIDE 112 mmol/L (97-110); CREATININE 1.73 mg/dl (0.44-1.00); Estimated GFR 37 mL/min (>60); GLUCOSE 128 mg/dl (70-220); POTASSIUM 4.3 mmol/L (3.5-5.1); SODIUM 142 mmol/L (135-144); TOTAL PROTEIN 6.5 g/dl (6.1-8.1)
[2018-12-18 07:58] LABS: PHOSPHORUS 3.5 mg/dl (2.5-4.9)
[2018-12-18 07:58] LABS: MAGNESIUM 2.5 mg/dl (1.7-2.5)
[2018-12-18] MEDS: METHYLPREDNISOLONE 40 MG INJ IV (08:12)
[2018-12-18] MEDS: FAMOTIDINE 20 MG TAB PO (08:12)
[2018-12-18] MEDS: GABAPENTIN 300 MG CAP PO ×2 (08:12→22:01)
[2018-12-18] MEDS: METOPROLOL 100 MG TAB PO ×2 (08:12→22:00)
[2018-12-18] MEDS: ASPIRIN 81 MG TAB PO (08:12)
[2018-12-18] MEDS: MENTHOL/METH SALICYLATE 30 GM OINT TOP ×3 (08:13→22:39)
[2018-12-18 14:24] LABS: PARTIAL THROMBOPLASTIN TIME 64.6 Sec (23.0-35.0)
[2018-12-18] MEDS: HEPARIN 25000 UNITS/D5W 250 ML IV (14:36)
[2018-12-18] MEDS: CEFTRIAXONE 1 GM/50 ML (PMX) 50 ML IVPB (17:56)
[2018-12-18] MEDS ORDERED: hydrALAzine 20 MG INJ IV (19:00)
[2018-12-18 20:45] LABS: PARTIAL THROMBOPLASTIN TIME 54.6 Sec (23.0-35.0)
[2018-12-18] MEDS: CLONIDINE 0.3 MG/24 HR PATCH TRANSDERM (21:59)
[2018-12-18] MEDS: ATORVASTATIN 40 MG TAB PO (22:00)
[2018-12-18] MEDS: INSULIN GLARGINE [LANTus] (100 UNITS/ML) SYG SC (22:10)
[2018-12-19] MEDS: ACCU-CHEK XX ×6 (01:00→21:00)
[2018-12-19] MEDS: INSULIN ASPART [NOVOLOG] 3 ML PEN SC ×9 (01:00→21:02)
[2018-12-19 03:36] LABS: PARTIAL THROMBOPLASTIN TIME 57.3 Sec (23.0-35.0)
[2018-12-19 05:25] LABS: WHITE BLOOD COUNT 17.3 10^3/ul (4.8-10.8)
[2018-12-19 05:25] LABS: ABNORMAL IP MESSAGE 1; HEMATOCRIT 29.3 % (37.0-47.0); HEMOGLOBIN 9.5 g/dl (12.0-16.0); MEAN CORPUSCULAR HEMOGLOBIN 24.2 pg (29.0-33.0); MEAN CORPUSCULAR HGB CONC 32.4 g/dl (32.0-37.0); MEAN CORPUSCULAR VOLUME 74.6 fl (82.0-101.0); MEAN PLATELET VOLUME 11.4 fl (7.4-10.4); PLATELET COUNT 282 10^3/UL (140-415); RED BLOOD COUNT 3.93 10^6/ul (4.20-5.40); RED CELL DISTRIBUTION WIDTH 17.4 % (11.5-14.5)
[2018-12-19 05:30] LABS: ADD MAN DIFF? YES; POSITIVE DIFF @See below
[2018-12-19 05:56] LABS: CK-MB 0.79 ng/ml (0.0-2.4)
[2018-12-19 06:00] LABS: CK INDEX 0.7; CREATINE KINASE 119 IU/L (23-200)
[2018-12-19 06:02] LABS: ANION GAP 6 (5-13); BLOOD UREA NITROGEN 41 mg/dl (7-20); CALCIUM 8.8 mg/dl (8.4-10.2); CARBON DIOXIDE 28 mmol/L (21-31); CHLORIDE 109 mmol/L (97-110); CREATININE 1.66 mg/dl (0.44-1.00); Estimated GFR 39 mL/min (>60); GLUCOSE 125 mg/dl (70-220); MAGNESIUM 2.6 mg/dl (1.7-2.5); PHOSPHORUS 3.8 mg/dl (2.5-4.9); POTASSIUM 4.4 mmol/L (3.5-5.1); SODIUM 143 mmol/L (135-144)
[2018-12-19 06:09] LABS: TROPONIN-I 0.804 ng/ml (0.000-0.120)
[2018-12-19 07:35] LABS: ANISOCYTOSIS 2+ (0-0); LYMPHOCYTES #M 9.6 10^3/ul (0.8-2.9); LYMPHOCYTES % (M) 56 % (15-51); MICROCYTOSIS 2+ (0-0); MONOCYTE #M 1.7 10^3/ul (0.3-0.9); MONOCYTES % (M) 10 % (0-11); PLATELET ESTIMATE NORMAL; POLYCHROMASIA 3+ (0-0); SEGMENTED NEUTROPHILS (M) % 34 % (39-77); SMUDGE%M 8 % (0-0)
[2018-12-19] MEDS: METHYLPREDNISOLONE 40 MG INJ IV (08:41)
[2018-12-19] MEDS: GABAPENTIN 300 MG CAP PO ×2 (08:45→20:50)
[2018-12-19] MEDS: FAMOTIDINE 20 MG TAB PO (08:45)
[2018-12-19] MEDS: METOPROLOL 100 MG TAB PO ×2 (08:46→21:49)
[2018-12-19] MEDS: ASPIRIN 81 MG TAB PO (08:46)
[2018-12-19] MEDS: MENTHOL/METH SALICYLATE 30 GM OINT TOP ×3 (08:58→20:50)
[2018-12-19 11:14] LABS: IRON 61 ug/dl (35-150)
[2018-12-19 11:24] LABS: % IRON SATURATION 27 % SAT (22-52); TOTAL IRON BINDING CAPACITY 227 ug/dl (241-421)
[2018-12-19 12:19] LABS: FERRITIN 77.8 ng/ml (11.1-264.0)
[2018-12-19] MEDS: HEPARIN 25000 UNITS/D5W 250 ML IV ×2 (14:00→22:17)
[2018-12-19 14:30] LABS: PARTIAL THROMBOPLASTIN TIME 63.3 Sec (23.0-35.0)
[2018-12-19] MEDS: ATORVASTATIN 40 MG TAB PO (20:50)
[2018-12-19 21:46] LABS: PARTIAL THROMBOPLASTIN TIME 50.1 Sec (23.0-35.0)
[2018-12-19] MEDS: CIPROFLOXACIN 200 MG/D5W IVPB 100 ML IVPB (21:49)
[2018-12-19] MEDS: INSULIN GLARGINE [LANTus] (100 UNITS/ML) SYG SC (22:20)
[2018-12-19] MEDS: traZODone 50 MG TAB PO (22:20)
[2018-12-20] MEDS: ACCU-CHEK XX ×6 (01:00→21:00)
[2018-12-20] MEDS: INSULIN ASPART [NOVOLOG] 3 ML PEN SC ×9 (01:33→21:00)
[2018-12-20 02:53] LABS: PARTIAL THROMBOPLASTIN TIME 54.6 Sec (23.0-35.0)
[2018-12-20] MEDS: HEPARIN 25000 UNITS/D5W 250 ML IV ×4 (03:12→23:38)
[2018-12-20 06:04] LABS: WHITE BLOOD COUNT 15.8 10^3/ul (4.8-10.8)
[2018-12-20 06:04] LABS: ABNORMAL IP MESSAGE 1; HEMATOCRIT 27.8 % (37.0-47.0); HEMOGLOBIN 8.9 g/dl (12.0-16.0); MEAN CORPUSCULAR HEMOGLOBIN 23.9 pg (29.0-33.0); MEAN CORPUSCULAR VOLUME 74.7 fl (82.0-101.0); MEAN PLATELET VOLUME 11.7 fl (7.4-10.4); PLATELET COUNT 246 10^3/UL (140-415); RED BLOOD COUNT 3.72 10^6/ul (4.20-5.40); RED CELL DISTRIBUTION WIDTH 17.4 % (11.5-14.5)
[2018-12-20 06:21] LABS: ANION GAP 6 (5-13); BLOOD UREA NITROGEN 38 mg/dl (7-20); CALCIUM 8.6 mg/dl (8.4-10.2); CARBON DIOXIDE 28 mmol/L (21-31); CHLORIDE 106 mmol/L (97-110); Estimated GFR 44 mL/min (>60); GLUCOSE 113 mg/dl (70-220); MAGNESIUM 2.6 mg/dl (1.7-2.5); PHOSPHORUS 3.8 mg/dl (2.5-4.9); POTASSIUM 3.9 mmol/L (3.5-5.1); SODIUM 140 mmol/L (135-144)
[2018-12-20 06:55] LABS: ADD MAN DIFF? YES; POSITIVE DIFF @See below
[2018-12-20] MEDS: FAMOTIDINE 20 MG TAB PO (09:02)
[2018-12-20] MEDS: GABAPENTIN 300 MG CAP PO ×2 (09:02→21:04)
[2018-12-20] MEDS: METOPROLOL 100 MG TAB PO ×2 (09:04→21:03)
[2018-12-20 09:12] LABS: PARTIAL THROMBOPLASTIN TIME 82.8 Sec (23.0-35.0)
[2018-12-20 09:17] LABS: ANISOCYTOSIS 2+ (0-0); BASOPHIL #M 0.1 10^3/ul (0.0-0.0); BASOPHILS % (M) 1 % (0-2); LYMPHOCYTES #M 11.3 10^3/ul (0.8-2.9); LYMPHOCYTES % (M) 72 % (15-51); MICROCYTOSIS 2+ (0-0); MONOCYTE #M 0.1 10^3/ul (0.3-0.9); MONOCYTES % (M) 1 % (0-11); PLATELET ESTIMATE NORMAL; REACTIVE LYMPHOCYTES #M 0.1 10^3/ul (0.0-0.0); REACTIVE LYMPHOCYTES% (M) 1 % (0-0); SEGMENTED NEUTROPHILS (M) % 25 % (39-77); SMUDGE%M 20 % (0-0)
[2018-12-20] MEDS: MENTHOL/METH SALICYLATE 30 GM OINT TOP ×3 (09:21→21:24)
[2018-12-20] MEDS: CIPROFLOXACIN 200 MG/D5W IVPB 100 ML IVPB ×2 (10:23→21:04)
[2018-12-20 14:54] LABS: PARTIAL THROMBOPLASTIN TIME 53.3 Sec (23.0-35.0)
[2018-12-20 15:09] LABS: CREATINE KINASE 88 IU/L (23-200)
[2018-12-20 15:20] LABS: CK INDEX 0.5; CK-MB 0.41 ng/ml (0.0-2.4)
[2018-12-20 15:25] LABS: TROPONIN-I 0.532 ng/ml (0.000-0.120)
[2018-12-20] MEDS: ATORVASTATIN 40 MG TAB PO (21:04)
[2018-12-20] MEDS: INSULIN GLARGINE [LANTus] (100 UNITS/ML) SYG SC (21:31)
[2018-12-20] MEDS: MELATONIN 5 MG TABLET PO (22:30)
[2018-12-20 23:26] LABS: PARTIAL THROMBOPLASTIN TIME 89.9 Sec (23.0-35.0)
[2018-12-21] MEDS: ACCU-CHEK XX ×6 (01:00→20:53)
[2018-12-21] MEDS: INSULIN ASPART [NOVOLOG] 3 ML PEN SC ×11 (01:48→20:51)
[2018-12-21 07:21] LABS: ADD MAN DIFF? NO
[2018-12-21 07:24] LABS: WHITE BLOOD COUNT 14.7 10^3/ul (4.8-10.8)
[2018-12-21 07:25] LABS: ABNORMAL IP MESSAGE 1; BASOPHIL # 0.1 10^3/ul (0.0-0.1); BASOPHILS % 0.3 % (0.0-2.0); EOSINOPHILS # 0.2 10^3/ul (0.0-0.5); EOSINOPHILS % 1.4 % (0.0-7.0); HEMATOCRIT 28.4 % (37.0-47.0); HEMOGLOBIN 8.9 g/dl (12.0-16.0); LYMPHOCYTES # 6.2 10^3/ul (0.8-2.9); LYMPHOCYTES % 42.3 % (15.0-51.0); MEAN CORPUSCULAR HEMOGLOBIN 23.7 pg (29.0-33.0); MEAN CORPUSCULAR HGB CONC 31.3 g/dl (32.0-37.0); MEAN CORPUSCULAR VOLUME 75.7 fl (82.0-101.0); MEAN PLATELET VOLUME 11.6 fl (7.4-10.4); MONOCYTE # 0.8 10^3/ul (0.3-0.9); MONOCYTES % 5.2 % (0.0-11.0); NEUTROPHIL # 7.4 10^3/ul (1.6-7.5); NEUTROPHILS % 50.6 % (39.0-77.0); PLATELET COUNT 254 10^3/UL (140-415); RED BLOOD COUNT 3.75 10^6/ul (4.20-5.40); RED CELL DISTRIBUTION WIDTH 17.4 % (11.5-14.5)
[2018-12-21 07:36] LABS: POSITIVE DIFF @See below
[2018-12-21 07:48] LABS: ANION GAP 3 (5-13); BLOOD UREA NITROGEN 32 mg/dl (7-20); CALCIUM 8.7 mg/dl (8.4-10.2); CARBON DIOXIDE 28 mmol/L (21-31); CHLORIDE 109 mmol/L (97-110); CREATINE KINASE 60 IU/L (23-200); CREATININE 1.68 mg/dl (0.44-1.00); Estimated GFR 39 mL/min (>60); GLUCOSE 85 mg/dl (70-220); MAGNESIUM 2.7 mg/dl (1.7-2.5); PHOSPHORUS 4.2 mg/dl (2.5-4.9); POTASSIUM 4.3 mmol/L (3.5-5.1); SODIUM 140 mmol/L (135-144)
[2018-12-21 07:53] LABS: PARTIAL THROMBOPLASTIN TIME 86.7 Sec (23.0-35.0)
[2018-12-21 08:00] LABS: CK INDEX 0.4; CK-MB < 0.22 ng/ml (0.0-2.4)
[2018-12-21] MEDS: HEPARIN 25000 UNITS/D5W 250 ML IV ×3 (08:08→23:21)
[2018-12-21] MEDS: FAMOTIDINE 20 MG TAB PO (08:55)
[2018-12-21] MEDS: GABAPENTIN 300 MG CAP PO ×2 (08:55→20:36)
[2018-12-21] MEDS: METOPROLOL 100 MG TAB PO ×2 (08:55→20:36)
[2018-12-21] MEDS: CIPROFLOXACIN 200 MG/D5W IVPB 100 ML IVPB ×2 (08:56→20:37)
[2018-12-21] MEDS: MENTHOL/METH SALICYLATE 30 GM OINT TOP ×3 (09:26→20:39)
[2018-12-21 15:53] LABS: PARTIAL THROMBOPLASTIN TIME 92.2 Sec (23.0-35.0)
[2018-12-21] MEDS ORDERED: DEXTROSE 5%-0.45% NACL 1,000 ML IV (20:00)
[2018-12-21] MEDS: ATORVASTATIN 40 MG TAB PO (20:34)
[2018-12-21] MEDS: MELATONIN 5 MG TABLET PO (20:36)
[2018-12-21] MEDS: INSULIN GLARGINE [LANTus] (100 UNITS/ML) SYG SC (20:51)
[2018-12-21 23:03] LABS: PARTIAL THROMBOPLASTIN TIME 56.5 Sec (23.0-35.0)
[2018-12-22] MEDS: ACCU-CHEK XX ×6 (01:00→20:48)
[2018-12-22] MEDS: INSULIN ASPART [NOVOLOG] 3 ML PEN SC ×7 (02:22→17:55)
[2018-12-22 07:16] LABS: ADD MAN DIFF? NO
[2018-12-22 07:24] LABS: WHITE BLOOD COUNT 15.4 10^3/ul (4.8-10.8)
[2018-12-22 07:24] LABS: ABNORMAL IP MESSAGE 1; BASOPHILS % 0.2 % (0.0-2.0); EOSINOPHILS # 0.2 10^3/ul (0.0-0.5); EOSINOPHILS % 1.5 % (0.0-7.0); HEMATOCRIT 28.7 % (37.0-47.0); HEMOGLOBIN 9.1 g/dl (12.0-16.0); LYMPHOCYTES # 5.1 10^3/ul (0.8-2.9); LYMPHOCYTES % 32.8 % (15.0-51.0); MEAN CORPUSCULAR HEMOGLOBIN 23.9 pg (29.0-33.0); MEAN CORPUSCULAR HGB CONC 31.7 g/dl (32.0-37.0); MEAN CORPUSCULAR VOLUME 75.3 fl (82.0-101.0); MEAN PLATELET VOLUME 12.1 fl (7.4-10.4); MONOCYTE # 0.9 10^3/ul (0.3-0.9); MONOCYTES % 5.5 % (0.0-11.0); NEUTROPHIL # 9.2 10^3/ul (1.6-7.5); NEUTROPHILS % 59.7 % (39.0-77.0); PLATELET COUNT 263 10^3/UL (140-415); RED BLOOD COUNT 3.81 10^6/ul (4.20-5.40)
[2018-12-22 07:28] LABS: POSITIVE DIFF @See below
[2018-12-22 07:38] LABS: PHOSPHORUS 4.3 mg/dl (2.5-4.9)
[2018-12-22 07:38] LABS: MAGNESIUM 2.5 mg/dl (1.7-2.5)
[2018-12-22 07:41] LABS: ANION GAP 6 (5-13); BLOOD UREA NITROGEN 29 mg/dl (7-20); CALCIUM 8.7 mg/dl (8.4-10.2); CARBON DIOXIDE 29 mmol/L (21-31); CHLORIDE 104 mmol/L (97-110); CREATININE 1.69 mg/dl (0.44-1.00); Estimated GFR 38 mL/min (>60); GLUCOSE 122 mg/dl (70-220); POTASSIUM 4.5 mmol/L (3.5-5.1); SODIUM 139 mmol/L (135-144)
[2018-12-22 07:48] LABS: PARTIAL THROMBOPLASTIN TIME 71.8 Sec (23.0-35.0)
[2018-12-22] MEDS: HEPARIN 25000 UNITS/D5W 250 ML IV (07:55)
[2018-12-22] MEDS: DEXTROSE 5%-0.45% NACL 1,000 ML IV (08:00)
[2018-12-22] MEDS: DIAZEPAM 5 MG TAB PO (08:00)
[2018-12-22] MEDS: DIPHENHYDRAMINE 50 MG CAP PO (08:00)
[2018-12-22] MEDS: GABAPENTIN 300 MG CAP PO ×2 (08:52→20:31)
[2018-12-22] MEDS: FAMOTIDINE 20 MG TAB PO (08:52)
[2018-12-22] MEDS: CIPROFLOXACIN 200 MG/D5W IVPB 100 ML IVPB ×2 (08:53→23:24)
[2018-12-22] MEDS: MENTHOL/METH SALICYLATE 30 GM OINT TOP ×3 (08:54→20:33)
[2018-12-22] MEDS: METOPROLOL 100 MG TAB PO ×2 (09:00→20:31)
[2018-12-22] MEDS ORDERED: HEPARIN 1000 UNITS/ML 10 ML INJ (12:41)
[2018-12-22] MEDS ORDERED: MIDAZOLAM 1 MG/ML 2 ML INJ (12:41)
[2018-12-22] MEDS ORDERED: FENTAnyl 50 MCG/ML VIAL (12:41)
[2018-12-22] MEDS ORDERED: NITROGLYCERIN (IC) 100 MCG/ML INJ (12:42)
[2018-12-22] MEDS ORDERED: VERAPAMIL 5 MG INJ (12:42)
[2018-12-22] MEDS ORDERED: LIDOCAINE 1% (MDV) 20 ML INJ (12:43)
[2018-12-22] MEDS ORDERED: BIVALIRUDIN 250MG /NS 50 ML 50 ML IVPB (13:07)
[2018-12-22] MEDS ORDERED: TICAGRELOR 90 MG TABLET (14:11)
[2018-12-22] MEDS ORDERED: ASPIRIN 325 MG TAB (14:11)
[2018-12-22] MEDS ORDERED: IODIXANOL LOCM 100 ML BTL (14:15)
[2018-12-22] MEDS ORDERED: IOHEXOL 350MG/ML 50 ML BTL (14:15)
[2018-12-22] MEDS ORDERED: AL HYDROX/MG HYDROX/SIMETH 30 ML CUP PO (14:30)
[2018-12-22] MEDS ORDERED: ACETAMINOPHEN 325 MG TAB PO (14:30)
[2018-12-22] MEDS ORDERED: ONDANSETRON 4 MG INJ IV (14:30)
[2018-12-22 16:30] LABS: PARTIAL THROMBOPLASTIN TIME 106.1 Sec (23.0-35.0)
[2018-12-22] MEDS: SOD CHLORIDE 0.9% 1,000 ML IV (17:18)
[2018-12-22] MEDS ORDERED: INSULIN ASPART [NOVOLOG] 3 ML PEN SC (17:25)
[2018-12-22] MEDS: Insulin NOVOLOG SS MODERATE Algorithm (SS with meals and bedtime) SC ×2 (18:25→20:47)
[2018-12-22] MEDS: MELATONIN 5 MG TABLET PO (20:31)
[2018-12-22] MEDS: ATORVASTATIN 40 MG TAB PO (20:31)
[2018-12-22] MEDS: INSULIN GLARGINE [LANTus] (100 UNITS/ML) SYG SC (20:47)
[2018-12-22] MEDS: TICAGRELOR 90 MG TABLET PO (20:47)
[2018-12-23] MEDS: ACCU-CHEK XX ×3 (01:39→09:00)
[2018-12-23] MEDS: DEXTROSE 5%-0.45% NACL 1,000 ML IV ×2 (04:00→23:37)
[2018-12-23 06:42] LABS: ADD MAN DIFF? NO
[2018-12-23 06:44] LABS: BASOPHILS % 0.2 % (0.0-2.0); EOSINOPHILS # 0.2 10^3/ul (0.0-0.5); EOSINOPHILS % 1.6 % (0.0-7.0); HEMATOCRIT 24.4 % (37.0-47.0); HEMOGLOBIN 7.8 g/dl (12.0-16.0); LYMPHOCYTES # 2.7 10^3/ul (0.8-2.9); LYMPHOCYTES % 21.5 % (15.0-51.0); MEAN CORPUSCULAR HEMOGLOBIN 24.1 pg (29.0-33.0); MEAN CORPUSCULAR VOLUME 75.3 fl (82.0-101.0); MEAN PLATELET VOLUME 11.3 fl (7.4-10.4); MONOCYTE # 0.8 10^3/ul (0.3-0.9); MONOCYTES % 6.6 % (0.0-11.0); NEUTROPHIL # 8.9 10^3/ul (1.6-7.5); NEUTROPHILS % 69.6 % (39.0-77.0); PLATELET COUNT 208 10^3/UL (140-415); RED BLOOD COUNT 3.24 10^6/ul (4.20-5.40); RED CELL DISTRIBUTION WIDTH 16.7 % (11.5-14.5)
[2018-12-23 06:44] LABS: WHITE BLOOD COUNT 12.8 10^3/ul (4.8-10.8)
[2018-12-23 07:08] LABS: CREATINE KINASE 83 IU/L (23-200)
[2018-12-23 07:10] LABS: MAGNESIUM 2.3 mg/dl (1.7-2.5)
[2018-12-23 07:10] LABS: PHOSPHORUS 4.1 mg/dl (2.5-4.9)
[2018-12-23 07:11] LABS: ANION GAP 6 (5-13); BLOOD UREA NITROGEN 26 mg/dl (7-20); CALCIUM 8.4 mg/dl (8.4-10.2); CARBON DIOXIDE 27 mmol/L (21-31); CHLORIDE 105 mmol/L (97-110); CREATININE 1.35 mg/dl (0.44-1.00); Estimated GFR 50 mL/min (>60); GLUCOSE 166 mg/dl (70-220); POTASSIUM 4.6 mmol/L (3.5-5.1); SODIUM 138 mmol/L (135-144)
[2018-12-23 07:19] LABS: CK INDEX 0.3; CK-MB 0.25 ng/ml (0.0-2.4)
[2018-12-23] MEDS: GABAPENTIN 300 MG CAP PO ×2 (08:40→20:25)
[2018-12-23] MEDS: METOPROLOL 100 MG TAB PO ×2 (08:42→20:47)
[2018-12-23] MEDS: ASPIRIN (EC) 81 MG TAB PO (08:43)
[2018-12-23] MEDS: FAMOTIDINE 20 MG TAB PO (08:43)
[2018-12-23] MEDS: TICAGRELOR 90 MG TABLET PO ×2 (08:44→20:47)
[2018-12-23] MEDS: INSULIN ASPART [NOVOLOG] 3 ML PEN SC ×3 (08:47→17:34)
[2018-12-23] MEDS: Insulin NOVOLOG SS MODERATE Algorithm (SS with meals and bedtime) SC ×4 (08:48→20:48)
[2018-12-23] MEDS: CIPROFLOXACIN 200 MG/D5W IVPB 100 ML IVPB ×2 (08:48→20:28)
[2018-12-23] MEDS: MENTHOL/METH SALICYLATE 30 GM OINT TOP ×3 (08:52→20:54)
[2018-12-23 11:18] LABS: HEMATOCRIT 24.8 % (37.0-47.0); HEMOGLOBIN 7.9 g/dl (12.0-16.0)
[2018-12-23] MEDS ORDERED: CLONIDINE 0.2 MG/24 HR PATCH TRANSDERM (17:00)
[2018-12-23] MEDS: ATORVASTATIN 40 MG TAB PO (20:25)
[2018-12-23] MEDS: MELATONIN 5 MG TABLET PO (20:25)
[2018-12-23] MEDS: INSULIN GLARGINE [LANTus] (100 UNITS/ML) SYG SC (20:46)
[2018-12-24 08:13] LABS: ADD MAN DIFF? NO
[2018-12-24 08:30] LABS: WHITE BLOOD COUNT 11.2 10^3/ul (4.8-10.8)
[2018-12-24 08:30] LABS: BASOPHILS % 0.2 % (0.0-2.0); EOSINOPHILS # 0.2 10^3/ul (0.0-0.5); EOSINOPHILS % 1.9 % (0.0-7.0); HEMATOCRIT 24.8 % (37.0-47.0); HEMOGLOBIN 7.8 g/dl (12.0-16.0); LYMPHOCYTES # 3.2 10^3/ul (0.8-2.9); LYMPHOCYTES % 28.8 % (15.0-51.0); MEAN CORPUSCULAR HEMOGLOBIN 24.1 pg (29.0-33.0); MEAN CORPUSCULAR HGB CONC 31.5 g/dl (32.0-37.0); MEAN CORPUSCULAR VOLUME 76.5 fl (82.0-101.0); MONOCYTE # 0.8 10^3/ul (0.3-0.9); MONOCYTES % 7.4 % (0.0-11.0); NEUTROPHIL # 6.9 10^3/ul (1.6-7.5); NEUTROPHILS % 61.1 % (39.0-77.0); PLATELET COUNT 205 10^3/UL (140-415); RED BLOOD COUNT 3.24 10^6/ul (4.20-5.40); RED CELL DISTRIBUTION WIDTH 16.9 % (11.5-14.5)
[2018-12-24 08:47] LABS: ANION GAP 8 (5-13); BLOOD UREA NITROGEN 24 mg/dl (7-20); CALCIUM 8.3 mg/dl (8.4-10.2); CARBON DIOXIDE 25 mmol/L (21-31); CHLORIDE 104 mmol/L (97-110); CREATININE 1.56 mg/dl (0.44-1.00); Estimated GFR 42 mL/min (>60); GLUCOSE 129 mg/dl (70-220); POTASSIUM 4.5 mmol/L (3.5-5.1); SODIUM 137 mmol/L (135-144)
[2018-12-24 08:52] LABS: MAGNESIUM 2.3 mg/dl (1.7-2.5)
[2018-12-24 08:52] LABS: PHOSPHORUS 4.2 mg/dl (2.5-4.9)
[2018-12-24] MEDS: ASPIRIN (EC) 81 MG TAB PO (08:54)
[2018-12-24] MEDS: FAMOTIDINE 20 MG TAB PO (08:55)
[2018-12-24] MEDS: TICAGRELOR 90 MG TABLET PO ×2 (08:56→20:28)
[2018-12-24] MEDS: METOPROLOL 100 MG TAB PO ×2 (08:56→20:21)
[2018-12-24] MEDS: GABAPENTIN 300 MG CAP PO ×2 (08:56→20:18)
[2018-12-24] MEDS: INSULIN ASPART [NOVOLOG] 3 ML PEN SC ×3 (08:58→17:48)
[2018-12-24] MEDS: Insulin NOVOLOG SS MODERATE Algorithm (SS with meals and bedtime) SC ×4 (08:59→20:22)
[2018-12-24] MEDS: MENTHOL/METH SALICYLATE 30 GM OINT TOP ×3 (08:59→20:20)
[2018-12-24] MEDS: CIPROFLOXACIN 200 MG/D5W IVPB 100 ML IVPB ×2 (09:01→20:21)
[2018-12-24] MEDS: ISOSORBIDE DINITRATE 20 MG TAB PO ×2 (12:47→20:18)
[2018-12-24] MEDS: ALBUTEROL/IPRATROPIUM (NEB) 3 ML AMP HHN (15:02)
[2018-12-24] MEDS: ATORVASTATIN 40 MG TAB PO (20:18)
[2018-12-24] MEDS: MELATONIN 5 MG TABLET PO (20:19)
[2018-12-24] MEDS: INSULIN GLARGINE [LANTus] (100 UNITS/ML) SYG SC (20:27)
[2018-12-25 07:12] LABS: ADD MAN DIFF? NO
[2018-12-25 07:20] LABS: BASOPHILS % 0.2 % (0.0-2.0); EOSINOPHILS # 0.2 10^3/ul (0.0-0.5); EOSINOPHILS % 1.9 % (0.0-7.0); HEMATOCRIT 22.8 % (37.0-47.0); HEMOGLOBIN 7.3 g/dl (12.0-16.0); LYMPHOCYTES # 3.1 10^3/ul (0.8-2.9); LYMPHOCYTES % 24.6 % (15.0-51.0); MEAN CORPUSCULAR HEMOGLOBIN 24.2 pg (29.0-33.0); MEAN CORPUSCULAR VOLUME 75.5 fl (82.0-101.0); MEAN PLATELET VOLUME 12.2 fl (7.4-10.4); MONOCYTES % 7.8 % (0.0-11.0); NEUTROPHIL # 8.1 10^3/ul (1.6-7.5); NEUTROPHILS % 64.9 % (39.0-77.0); PLATELET COUNT 238 10^3/UL (140-415); RED BLOOD COUNT 3.02 10^6/ul (4.20-5.40); RED CELL DISTRIBUTION WIDTH 16.9 % (11.5-14.5)
[2018-12-25 07:20] LABS: WHITE BLOOD COUNT 12.5 10^3/ul (4.8-10.8)
[2018-12-25 07:32] LABS: MAGNESIUM 2.4 mg/dl (1.7-2.5)
[2018-12-25 07:32] LABS: PHOSPHORUS 4.1 mg/dl (2.5-4.9)
[2018-12-25 07:33] LABS: ANION GAP 5 (5-13); BLOOD UREA NITROGEN 20 mg/dl (7-20); CALCIUM 8.8 mg/dl (8.4-10.2); CARBON DIOXIDE 28 mmol/L (21-31); CHLORIDE 104 mmol/L (97-110); CREATININE 1.65 mg/dl (0.44-1.00); Estimated GFR 40 mL/min (>60); GLUCOSE 143 mg/dl (70-220); POTASSIUM 4.8 mmol/L (3.5-5.1); SODIUM 137 mmol/L (135-144)
[2018-12-25] MEDS: Insulin NOVOLOG SS MODERATE Algorithm (SS with meals and bedtime) SC ×4 (07:44→20:33)
[2018-12-25] MEDS: INSULIN ASPART [NOVOLOG] 3 ML PEN SC ×3 (07:44→17:29)
[2018-12-25] MEDS: FAMOTIDINE 20 MG TAB PO (09:00)
[2018-12-25] MEDS: ASPIRIN (EC) 81 MG TAB PO (09:00)
[2018-12-25] MEDS: CIPROFLOXACIN 200 MG/D5W IVPB 100 ML IVPB ×2 (09:00→20:56)
[2018-12-25] MEDS: ISOSORBIDE DINITRATE 20 MG TAB PO ×3 (09:00→20:31)
[2018-12-25] MEDS: METOPROLOL 100 MG TAB PO ×2 (09:01→20:32)
[2018-12-25] MEDS: GABAPENTIN 300 MG CAP PO ×2 (09:01→20:31)
[2018-12-25] MEDS: MENTHOL/METH SALICYLATE 30 GM OINT TOP ×3 (09:06→20:50)
[2018-12-25] MEDS: TICAGRELOR 90 MG TABLET PO ×2 (09:14→20:42)
[2018-12-25 11:00] LABS: IMMEDIATE SPIN CROSSMATCH 1 1
[2018-12-25] MEDS: SOD CHLORIDE 0.9% 250 ML IV* (11:14)
[2018-12-25] MEDS: ATORVASTATIN 40 MG TAB PO (20:30)
[2018-12-25] MEDS: MELATONIN 5 MG TABLET PO (20:32)
[2018-12-25] MEDS: INSULIN GLARGINE [LANTus] (100 UNITS/ML) SYG SC (20:41)
[2018-12-25] MEDS: CLONIDINE 0.3 MG/24 HR PATCH TRANSDERM (20:47)
[2018-12-26 07:07] LABS: ADD MAN DIFF? NO
[2018-12-26 07:13] LABS: WHITE BLOOD COUNT 12.3 10^3/ul (4.8-10.8)
[2018-12-26 07:13] LABS: BASOPHILS % 0.2 % (0.0-2.0); EOSINOPHILS # 0.2 10^3/ul (0.0-0.5); EOSINOPHILS % 1.5 % (0.0-7.0); HEMATOCRIT 26.9 % (37.0-47.0); HEMOGLOBIN 8.7 g/dl (12.0-16.0); LYMPHOCYTES # 3.1 10^3/ul (0.8-2.9); LYMPHOCYTES % 24.8 % (15.0-51.0); MEAN CORPUSCULAR HEMOGLOBIN 24.9 pg (29.0-33.0); MEAN CORPUSCULAR HGB CONC 32.3 g/dl (32.0-37.0); MEAN CORPUSCULAR VOLUME 76.9 fl (82.0-101.0); MEAN PLATELET VOLUME 11.9 fl (7.4-10.4); MONOCYTE # 1.1 10^3/ul (0.3-0.9); MONOCYTES % 8.9 % (0.0-11.0); NEUTROPHIL # 7.9 10^3/ul (1.6-7.5); PLATELET COUNT 234 10^3/UL (140-415); RED CELL DISTRIBUTION WIDTH 17.2 % (11.5-14.5)
[2018-12-26] MEDS: Insulin NOVOLOG SS MODERATE Algorithm (SS with meals and bedtime) SC ×4 (07:31→21:00)
[2018-12-26] MEDS: INSULIN ASPART [NOVOLOG] 3 ML PEN SC ×3 (07:36→17:16)
[2018-12-26 07:53] LABS: MAGNESIUM 2.5 mg/dl (1.7-2.5)
[2018-12-26 07:53] LABS: PHOSPHORUS 4.5 mg/dl (2.5-4.9)
[2018-12-26 07:56] LABS: ANION GAP 6 (5-13); BLOOD UREA NITROGEN 22 mg/dl (7-20); CALCIUM 8.9 mg/dl (8.4-10.2); CARBON DIOXIDE 28 mmol/L (21-31); CHLORIDE 104 mmol/L (97-110); CREATININE 1.66 mg/dl (0.44-1.00); Estimated GFR 39 mL/min (>60); GLUCOSE 111 mg/dl (70-220); POTASSIUM 4.9 mmol/L (3.5-5.1); SODIUM 138 mmol/L (135-144)
[2018-12-26] MEDS: FAMOTIDINE 20 MG TAB PO (08:37)
[2018-12-26] MEDS: ASPIRIN (EC) 81 MG TAB PO (08:37)
[2018-12-26] MEDS: GABAPENTIN 300 MG CAP PO ×2 (08:37→21:40)
[2018-12-26] MEDS: ISOSORBIDE DINITRATE 20 MG TAB PO ×3 (08:37→21:40)
[2018-12-26] MEDS: METOPROLOL 100 MG TAB PO ×2 (08:37→21:42)
[2018-12-26] MEDS: TICAGRELOR 90 MG TABLET PO ×2 (08:44→21:54)
[2018-12-26] MEDS: MENTHOL/METH SALICYLATE 30 GM OINT TOP ×3 (08:46→21:42)
[2018-12-26] MEDS: CIPROFLOXACIN 200 MG/D5W IVPB 100 ML IVPB (08:46)
[2018-12-26] MEDS: MELATONIN 5 MG TABLET PO (21:40)
[2018-12-26] MEDS: INSULIN GLARGINE [LANTus] (100 UNITS/ML) SYG SC (21:52)
[2018-12-26] MEDS: ATORVASTATIN 40 MG TAB PO (21:54)
[2018-12-27 07:26] LABS: ADD MAN DIFF? NO
[2018-12-27 07:30] LABS: WHITE BLOOD COUNT 10.9 10^3/ul (4.8-10.8)
[2018-12-27 07:30] LABS: BASOPHILS % 0.3 % (0.0-2.0); EOSINOPHILS # 0.2 10^3/ul (0.0-0.5); EOSINOPHILS % 1.9 % (0.0-7.0); HEMOGLOBIN 8.4 g/dl (12.0-16.0); LYMPHOCYTES # 2.5 10^3/ul (0.8-2.9); LYMPHOCYTES % 22.9 % (15.0-51.0); MEAN CORPUSCULAR HEMOGLOBIN 25.1 pg (29.0-33.0); MEAN CORPUSCULAR HGB CONC 32.3 g/dl (32.0-37.0); MEAN CORPUSCULAR VOLUME 77.8 fl (82.0-101.0); MEAN PLATELET VOLUME 11.9 fl (7.4-10.4); MONOCYTE # 1.1 10^3/ul (0.3-0.9); MONOCYTES % 9.7 % (0.0-11.0); NEUTROPHILS % 64.6 % (39.0-77.0); PLATELET COUNT 232 10^3/UL (140-415); RED BLOOD COUNT 3.34 10^6/ul (4.20-5.40); RED CELL DISTRIBUTION WIDTH 17.2 % (11.5-14.5)
[2018-12-27] MEDS: Insulin NOVOLOG SS MODERATE Algorithm (SS with meals and bedtime) SC ×4 (07:55→20:34)
[2018-12-27 07:58] LABS: ANION GAP 5 (5-13); BLOOD UREA NITROGEN 24 mg/dl (7-20); CALCIUM 9.1 mg/dl (8.4-10.2); CARBON DIOXIDE 30 mmol/L (21-31); CHLORIDE 106 mmol/L (97-110); CREATININE 1.74 mg/dl (0.44-1.00); Estimated GFR 37 mL/min (>60); GLUCOSE 83 mg/dl (70-220); POTASSIUM 4.6 mmol/L (3.5-5.1); SODIUM 141 mmol/L (135-144)
[2018-12-27 08:00] LABS: PHOSPHORUS 5.1 mg/dl (2.5-4.9)
[2018-12-27 08:00] LABS: MAGNESIUM 2.6 mg/dl (1.7-2.5)
[2018-12-27] MEDS: ISOSORBIDE DINITRATE 20 MG TAB PO ×3 (08:30→20:24)
[2018-12-27] MEDS: ASPIRIN (EC) 81 MG TAB PO (08:30)
[2018-12-27] MEDS: GABAPENTIN 300 MG CAP PO ×2 (08:30→20:23)
[2018-12-27] MEDS: FAMOTIDINE 20 MG TAB PO (08:30)
[2018-12-27] MEDS: METOPROLOL 100 MG TAB PO ×2 (08:31→20:25)
[2018-12-27] MEDS: TICAGRELOR 90 MG TABLET PO ×2 (08:38→20:34)
[2018-12-27] MEDS: INSULIN ASPART [NOVOLOG] 3 ML PEN SC ×3 (08:38→18:25)
[2018-12-27] MEDS: MENTHOL/METH SALICYLATE 30 GM OINT TOP ×3 (09:00→20:26)
[2018-12-27] MEDS: ATORVASTATIN 40 MG TAB PO (20:24)
[2018-12-27] MEDS: MELATONIN 5 MG TABLET PO (20:25)
[2018-12-27] MEDS: INSULIN GLARGINE [LANTus] (100 UNITS/ML) SYG SC (20:34)
[2018-12-28 05:39] LABS: ADD MAN DIFF? NO
[2018-12-28 05:43] LABS: BASOPHILS % 0.2 % (0.0-2.0); EOSINOPHILS # 0.1 10^3/ul (0.0-0.5); EOSINOPHILS % 1.7 % (0.0-7.0); HEMATOCRIT 25.9 % (37.0-47.0); HEMOGLOBIN 8.4 g/dl (12.0-16.0); LYMPHOCYTES # 2.2 10^3/ul (0.8-2.9); LYMPHOCYTES % 26.9 % (15.0-51.0); MEAN CORPUSCULAR HEMOGLOBIN 25.5 pg (29.0-33.0); MEAN CORPUSCULAR HGB CONC 32.4 g/dl (32.0-37.0); MEAN CORPUSCULAR VOLUME 78.5 fl (82.0-101.0); MEAN PLATELET VOLUME 11.4 fl (7.4-10.4); MONOCYTE # 0.5 10^3/ul (0.3-0.9); MONOCYTES % 5.7 % (0.0-11.0); NEUTROPHIL # 5.3 10^3/ul (1.6-7.5); NEUTROPHILS % 64.8 % (39.0-77.0); PLATELET COUNT 249 10^3/UL (140-415); RED CELL DISTRIBUTION WIDTH 17.4 % (11.5-14.5)
[2018-12-28 05:43] LABS: WHITE BLOOD COUNT 8.2 10^3/ul (4.8-10.8)
[2018-12-28 06:14] LABS: PHOSPHORUS 5.2 mg/dl (2.5-4.9)
[2018-12-28 06:14] LABS: MAGNESIUM 2.7 mg/dl (1.7-2.5)
[2018-12-28 06:19] LABS: ANION GAP 5 (5-13); BLOOD UREA NITROGEN 26 mg/dl (7-20); CALCIUM 8.9 mg/dl (8.4-10.2); CARBON DIOXIDE 30 mmol/L (21-31); CHLORIDE 103 mmol/L (97-110); CREATININE 1.75 mg/dl (0.44-1.00); Estimated GFR 37 mL/min (>60); GLUCOSE 145 mg/dl (70-220); POTASSIUM 5.2 mmol/L (3.5-5.1); SODIUM 138 mmol/L (135-144)
[2018-12-28] MEDS: INSULIN ASPART [NOVOLOG] 3 ML PEN SC ×3 (08:00→18:15)
[2018-12-28] MEDS: Insulin NOVOLOG SS MODERATE Algorithm (SS with meals and bedtime) SC ×4 (08:00→21:00)
[2018-12-28] MEDS: GABAPENTIN 300 MG CAP PO ×2 (10:28→20:55)
[2018-12-28] MEDS: MENTHOL/METH SALICYLATE 30 GM OINT TOP ×3 (10:29→20:56)
[2018-12-28] MEDS: ISOSORBIDE DINITRATE 20 MG TAB PO ×3 (10:29→20:55)
[2018-12-28] MEDS: FAMOTIDINE 20 MG TAB PO (10:29)
[2018-12-28] MEDS: ASPIRIN (EC) 81 MG TAB PO (10:30)
[2018-12-28] MEDS: METOPROLOL 100 MG TAB PO ×2 (10:31→22:21)
[2018-12-28] MEDS: TICAGRELOR 90 MG TABLET PO ×2 (10:34→22:20)
[2018-12-28] MEDS: INSULIN GLARGINE [LANTus] (100 UNITS/ML) SYG SC (20:54)
[2018-12-28] MEDS: ATORVASTATIN 40 MG TAB PO (20:55)
[2018-12-28] MEDS: MELATONIN 5 MG TABLET PO (22:20)
[2018-12-29 07:10] LABS: ANION GAP 7 (5-13); BLOOD UREA NITROGEN 27 mg/dl (7-20); CALCIUM 8.8 mg/dl (8.4-10.2); CARBON DIOXIDE 29 mmol/L (21-31); CHLORIDE 103 mmol/L (97-110); CREATININE 1.67 mg/dl (0.44-1.00); Estimated GFR 39 mL/min (>60); GLUCOSE 140 mg/dl (70-220); MAGNESIUM 2.6 mg/dl (1.7-2.5); PHOSPHORUS 4.8 mg/dl (2.5-4.9); SODIUM 139 mmol/L (135-144)
[2018-12-29] MEDS: TICAGRELOR 90 MG TABLET PO (08:32)
[2018-12-29] MEDS: FAMOTIDINE 20 MG TAB PO (08:35)
[2018-12-29] MEDS: GABAPENTIN 300 MG CAP PO (08:35)
[2018-12-29] MEDS: MENTHOL/METH SALICYLATE 30 GM OINT TOP ×2 (08:35→12:28)
[2018-12-29] MEDS: ASPIRIN (EC) 81 MG TAB PO (08:35)
[2018-12-29] MEDS: METOPROLOL 100 MG TAB PO (08:36)
[2018-12-29] MEDS: INSULIN ASPART [NOVOLOG] 3 ML PEN SC ×2 (08:36→12:30)
[2018-12-29] MEDS: Insulin NOVOLOG SS MODERATE Algorithm (SS with meals and bedtime) SC ×2 (08:37→12:00)
[2018-12-29] MEDS: ISOSORBIDE DINITRATE 20 MG TAB PO ×2 (08:40→12:27)
== END 2018-12-29 16:24 | DRG 981 ==
LOC: ICU 12-14 21:15 → TEL 12-19 18:22 → 2NE 12-28 01:51 → E/R 21:48 → 6WM 23:19
PROVIDERS: Internal Medicine
PROC: 4A023N7 Measurement of Cardiac Sampling and Pressure, Left Heart, Percutaneous Approach (ICD-10-PCS; 2018-12-17 14:00)
PROC: B211YZZ Fluoroscopy of Multiple Coronary Arteries using Other Contrast (ICD-10-PCS; 2018-12-17 14:00)
PROC: 4A033BC Measurement of Arterial Pressure, Coronary, Percutaneous Approach (ICD-10-PCS; 2018-12-17 14:00)
PROC: 027135Z Dilation of Coronary Artery, Two Arteries with Two Drug-eluting Intraluminal Devices, Percutaneous Approach (ICD-10-PCS; principal; 2018-12-17 14:18)
PROC: 02HV33Z Insertion of Infusion Device into Superior Vena Cava, Percutaneous Approach (ICD-10-PCS; 2018-12-17 14:18)
PROC: B211YZZ Fluoroscopy of Multiple Coronary Arteries using Other Contrast (ICD-10-PCS; 2018-12-17 14:18)
PROC: 30233N1 Transfusion of Nonautologous Red Blood Cells into Peripheral Vein, Percutaneous Approach (ICD-10-PCS; 2018-12-17 14:18)
DX: I63.9 Cerebral infarction, unspecified (principal); I21.4 Non-ST elevation (NSTEMI) myocardial infarction; N17.9 Acute kidney failure, unspecified; N39.0 Urinary tract infection, site not specified; I12.9 Hypertensive chronic kidney disease with stage 1 through stage 4 chronic kidney disease, or unspecified chronic kidney disease; I65.23 Occlusion and stenosis of bilateral carotid arteries; H54.8 Legal blindness, as defined in USA; E11.65 Type 2 diabetes mellitus with hyperglycemia; E66.9 Obesity, unspecified; I25.10 Atherosclerotic heart disease of native coronary artery without angina pectoris; T78.3XXA Angioneurotic edema, initial encounter; T46.4X5A Adverse effect of angiotensin-converting-enzyme inhibitors, initial encounter; E11.22 Type 2 diabetes mellitus with diabetic chronic kidney disease; I69.331 Monoplegia of upper limb following cerebral infarction affecting right dominant side; R62.7 Adult failure to thrive; I25.82 Chronic total occlusion of coronary artery; N18.3 Chronic kidney disease, stage 3 (moderate); D63.1 Anemia in chronic kidney disease; E87.5 Hyperkalemia; Z68.32 Body mass index [BMI] 32.0-32.9, adult; R53.81 Other malaise; Z79.4 Long term (current) use of insulin
CPT/HCPCS: 36415; 36430; 36569; 70450; 70496; 70498; 70551; 71045; 74230; 76937; 80048; 80053; 80061; 80307; 81001; 81003; 82043; 82550; 82553; 82728; 82962; 83036; 83540; 83735; 84100; 84155; 84300; 84439; 84443; 84480; 84484; 85014; 85018; 85025; 85610; 85651; 85730; 86592; 86850; 86900; 86901; 86920; 87081; 87086; 92507; 92526; 92610; 92611; 92928; 92929; 93005; 93306; 93454; 93458; 93571; 93880; 94664; 97110; 97116; 97163; 97164; 97530; 99285-25

== ENCOUNTER 2018-12-29 20:45 | Inpatient (IN) | payer OTHER ==
[2018-12-29 20:57] LABS: ADD MAN DIFF? NO
[2018-12-29 21:11] LABS: BASOPHIL # 0.1 10^3/ul (0.0-0.1); BASOPHILS % 0.3 % (0.0-2.0); EOSINOPHILS # 0.2 10^3/ul (0.0-0.5); EOSINOPHILS % 1.5 % (0.0-7.0); HEMATOCRIT 30.7 % (37.0-47.0); LYMPHOCYTES # 3.3 10^3/ul (0.8-2.9); LYMPHOCYTES % 22.9 % (15.0-51.0); MEAN CORPUSCULAR HGB CONC 32.6 g/dl (32.0-37.0); MEAN CORPUSCULAR VOLUME 76.8 fl (82.0-101.0); MEAN PLATELET VOLUME 11.6 fl (7.4-10.4); MONOCYTE # 0.7 10^3/ul (0.3-0.9); MONOCYTES % 4.7 % (0.0-11.0); NEUTROPHIL # 10.1 10^3/ul (1.6-7.5); NEUTROPHILS % 69.8 % (39.0-77.0); PLATELET COUNT 349 10^3/UL (140-415); RED CELL DISTRIBUTION WIDTH 17.3 % (11.5-14.5)
[2018-12-29 21:11] LABS: WHITE BLOOD COUNT 14.5 10^3/ul (4.8-10.8)
[2018-12-29 21:24] LABS: HEMOGLOBIN A1C 8.2 % (0-5.9)
[2018-12-29 21:29] LABS: INR 0.94; PROTIME 12.7 Sec (11.9-14.9)
[2018-12-29 21:30] LABS: ALANINE AMINOTRANSFERASE 20 IU/L (13-69); ALBUMIN 3.7 g/dl (3.3-4.9); ALBUMIN/GLOBULIN RATIO 1.02; ALKALINE PHOSPHATASE 95 IU/L (42-121); ANION GAP 7 (5-13); ASPARTATE AMINO TRANSFERASE 21 IU/L (15-46); BILIRUBIN,INDIRECT 0.1 mg/dl (0-1.1); BILIRUBIN,TOTAL 0.1 mg/dl (0.2-1.3); BLOOD UREA NITROGEN 28 mg/dl (7-20); CALCIUM 9.6 mg/dl (8.4-10.2); CARBON DIOXIDE 29 mmol/L (21-31); CHLORIDE 101 mmol/L (97-110); CHOL/HDL RATIO 4.6 RATIO; CHOLESTEROL 135 mg/dl (100-200); CREATINE KINASE 254 IU/L (23-200); CREATININE 1.81 mg/dl (0.44-1.00); Estimated GFR 36 mL/min (>60); GLUCOSE 230 mg/dl (70-220); HDL CHOLESTEROL 29 mg/dl (37-92); LDL CHOLESTEROL,CALCULATED 86 mg/dl; PARTIAL THROMBOPLASTIN TIME 31.6 Sec (23.0-35.0); SODIUM 137 mmol/L (135-144); TOTAL PROTEIN 7.3 g/dl (6.1-8.1); TRIGLYCERIDES 101 mg/dl (0-149)
[2018-12-29 21:31] LABS: ETHANOL < 10.0 mg/dl (0-0); POTASSIUM 5.5 mmol/L (3.5-5.1)
[2018-12-29 21:41] LABS: CK INDEX 0.2; CK-MB 0.46 ng/ml (0.0-2.4); TROPONIN-I < 0.012 ng/ml (0.000-0.120)
[2018-12-29] MEDS ORDERED: ONDANSETRON 4 MG INJ IV (23:00)
[2018-12-29] MEDS ORDERED: ACETAMINOPHEN 325 MG TAB PO (23:00)
[2018-12-30] MEDS: HYDROCODONE/APAP (5/325) TAB PO (02:26)
[2018-12-30] MEDS: ASPIRIN (EC) 81 MG TAB PO ×2 (02:26→09:41)
[2018-12-30] MEDS ORDERED: NACL 0.9% 3 ML SYG IV (02:30)
[2018-12-30] MEDS ORDERED: ALBUTEROL/IPRATROPIUM (NEB) 3 ML AMP HHN (02:30)
[2018-12-30] MEDS ORDERED: GLUCAGON 1 MG INJ IM (02:30)
[2018-12-30] MEDS ORDERED: DEXTROSE 50% 50 ML SYRINGE IV ×2 (02:30)
[2018-12-30] MEDS ORDERED: GLUCOSE GEL 15 GRAM TUBE BUCCAL (02:30)
[2018-12-30] MEDS ORDERED: GLUCOSE GEL 15 GRAM TUBE PO ×2 (02:30)
[2018-12-30] MEDS ORDERED: PENDING SANTYL ORDER FOR WOUND CARE XX (04:00)
[2018-12-30 05:49] LABS: ADD MAN DIFF? NO
[2018-12-30 05:59] LABS: BASOPHILS % 0.2 % (0.0-2.0); EOSINOPHILS # 0.2 10^3/ul (0.0-0.5); EOSINOPHILS % 1.1 % (0.0-7.0); HEMATOCRIT 29.5 % (37.0-47.0); HEMOGLOBIN 9.7 g/dl (12.0-16.0); LYMPHOCYTES # 2.6 10^3/ul (0.8-2.9); LYMPHOCYTES % 19.5 % (15.0-51.0); MEAN CORPUSCULAR HEMOGLOBIN 25.5 pg (29.0-33.0); MEAN CORPUSCULAR HGB CONC 32.9 g/dl (32.0-37.0); MEAN CORPUSCULAR VOLUME 77.4 fl (82.0-101.0); MEAN PLATELET VOLUME 11.7 fl (7.4-10.4); MONOCYTE # 0.7 10^3/ul (0.3-0.9); MONOCYTES % 5.1 % (0.0-11.0); NEUTROPHIL # 9.6 10^3/ul (1.6-7.5); NEUTROPHILS % 73.6 % (39.0-77.0); PLATELET COUNT 342 10^3/UL (140-415); RED BLOOD COUNT 3.81 10^6/ul (4.20-5.40); RED CELL DISTRIBUTION WIDTH 17.1 % (11.5-14.5)
[2018-12-30 05:59] LABS: WHITE BLOOD COUNT 13.1 10^3/ul (4.8-10.8)
[2018-12-30 06:22] LABS: ALANINE AMINOTRANSFERASE 17 IU/L (13-69); ALBUMIN 3.4 g/dl (3.3-4.9); ALBUMIN/GLOBULIN RATIO 1.03; ALKALINE PHOSPHATASE 84 IU/L (42-121); ANION GAP 5 (5-13); ASPARTATE AMINO TRANSFERASE 19 IU/L (15-46); BILIRUBIN,INDIRECT 0.1 mg/dl (0-1.1); BILIRUBIN,TOTAL 0.1 mg/dl (0.2-1.3); BLOOD UREA NITROGEN 24 mg/dl (7-20); CALCIUM 9.5 mg/dl (8.4-10.2); CARBON DIOXIDE 29 mmol/L (21-31); CHLORIDE 104 mmol/L (97-110); CREATININE 1.82 mg/dl (0.44-1.00); Estimated GFR 35 mL/min (>60); GLUCOSE 212 mg/dl (70-220); POTASSIUM 5.5 mmol/L (3.5-5.1); SODIUM 138 mmol/L (135-144); TOTAL PROTEIN 6.7 g/dl (6.1-8.1)
[2018-12-30] MEDS: INSULIN ASPART [NOVOLOG] 3 ML PEN SC ×7 (08:03→21:00)
[2018-12-30] MEDS ORDERED: INSULIN GLARGINE [LANtus] 3 ML PEN SC (09:00)
[2018-12-30] MEDS: GABAPENTIN 300 MG CAP PO ×3 (09:42→21:43)
[2018-12-30] MEDS: ONDANSETRON 4 MG INJ IV (09:47)
[2018-12-30] MEDS ORDERED: INSULIN GLARGINE [LANTus] (100 UNITS/ML) SYG SC (10:00)
[2018-12-30] MEDS: INSULIN GLARGINE [LANTus] (100 UNITS/ML) SYG SC (10:48)
[2018-12-30] MEDS: TICAGRELOR 90 MG TABLET PO ×2 (10:48→21:46)
[2018-12-30] MEDS: ATORVASTATIN 40 MG TAB PO (21:43)
[2018-12-31] MEDS: ACCU-CHEK XX (02:00)
[2018-12-31 06:27] LABS: ADD MAN DIFF? NO
[2018-12-31 06:35] LABS: WHITE BLOOD COUNT 11.2 10^3/ul (4.8-10.8)
[2018-12-31 06:35] LABS: BASOPHIL # 0.1 10^3/ul (0.0-0.1); BASOPHILS % 0.5 % (0.0-2.0); EOSINOPHILS # 0.2 10^3/ul (0.0-0.5); EOSINOPHILS % 1.7 % (0.0-7.0); HEMATOCRIT 30.8 % (37.0-47.0); HEMOGLOBIN 9.9 g/dl (12.0-16.0); LYMPHOCYTES # 3.5 10^3/ul (0.8-2.9); LYMPHOCYTES % 31.4 % (15.0-51.0); MEAN CORPUSCULAR HEMOGLOBIN 24.8 pg (29.0-33.0); MEAN CORPUSCULAR HGB CONC 32.1 g/dl (32.0-37.0); MEAN CORPUSCULAR VOLUME 77.2 fl (82.0-101.0); MEAN PLATELET VOLUME 11.2 fl (7.4-10.4); MONOCYTE # 0.6 10^3/ul (0.3-0.9); MONOCYTES % 5.2 % (0.0-11.0); NEUTROPHIL # 6.8 10^3/ul (1.6-7.5); NEUTROPHILS % 60.8 % (39.0-77.0); PLATELET COUNT 370 10^3/UL (140-415); RED BLOOD COUNT 3.99 10^6/ul (4.20-5.40); RED CELL DISTRIBUTION WIDTH 17.4 % (11.5-14.5)
[2018-12-31 07:16] LABS: ANION GAP 5 (5-13); BLOOD UREA NITROGEN 28 mg/dl (7-20); CALCIUM 9.3 mg/dl (8.4-10.2); CARBON DIOXIDE 30 mmol/L (21-31); CHLORIDE 105 mmol/L (97-110); CREATININE 1.96 mg/dl (0.44-1.00); Estimated GFR 32 mL/min (>60); GLUCOSE 94 mg/dl (70-220); MAGNESIUM 2.9 mg/dl (1.7-2.5); PHOSPHORUS 5.1 mg/dl (2.5-4.9); POTASSIUM 5.3 mmol/L (3.5-5.1); SODIUM 140 mmol/L (135-144)
[2018-12-31] MEDS: INSULIN ASPART [NOVOLOG] 3 ML PEN SC ×7 (07:35→20:18)
[2018-12-31] MEDS: FAMOTIDINE 20 MG INJ IV (08:16)
[2018-12-31] MEDS: ASPIRIN (EC) 81 MG TAB PO (09:02)
[2018-12-31] MEDS: GABAPENTIN 300 MG CAP PO ×2 (09:02→13:00)
[2018-12-31] MEDS: TICAGRELOR 90 MG TABLET PO (09:09)
[2018-12-31] MEDS: ENOXAPARIN 30 MG/0.3 ML SYG SC (09:10)
[2018-12-31] MEDS: INSULIN GLARGINE [LANTus] (100 UNITS/ML) SYG SC (10:55)
[2018-12-31] MEDS: SOD CHLORIDE 0.9% 500 ML IV (13:50)
[2018-12-31] MEDS: CLONIDINE 0.1 MG/24 HR PATCH TRANSDERM (16:00)
[2018-12-31] MEDS ORDERED: LABETALOL HCL 20MG INJ IV (16:00)
[2018-12-31] MEDS: LABETALOL HCL 20MG INJ IV ×2 (16:05→17:48)
[2018-12-31] MEDS: SOD CHLORIDE 0.9% 1,000 ML IV (18:01)
[2018-12-31] MEDS: ATORVASTATIN 40 MG TAB PO (20:27)
[2019-01-01 00:52] LABS: ADD UMIC YES; UR ASCORBIC ACID 40 mg/dL (NEGATIVE); UR BILIRUBIN (Dip) NEGATIVE (NEGATIVE); UR BLOOD (Dip) 1+ mg/dL (NEGATIVE); UR CLARITY CLEAR (CLEAR); UR COLOR YELLOW (YELLOW); UR GLUCOSE (Dip) NEGATIVE (NEGATIVE); UR KETONES (Dip) TRACE mg/dL (NEGATIVE); UR LEUKOCYTE ESTERASE (Dip) NEGATIVE Leu/ul (NEGATIVE); UR NITRITE (Dip) NEGATIVE (NEGATIVE); UR RBC 29 /HPF (0-5); UR SPECIFIC GRAVITY (Dip) 1.011 (1.003-1.030); UR TOTAL PROTEIN (Dip) 2+ mg/dl (NEGATIVE); UR UROBILINOGEN (Dip) NEGATIVE (NEGATIVE); UR WBC 4 /HPF (0-5)
[2019-01-01 01:03] LABS: SODIUM,URINE RANDOM 96 mmol/L (30-90)
[2019-01-01 01:07] LABS: CREATININE,URINE RANDOM 55.35 mg/dl (20-320)
[2019-01-01] MEDS: ACCU-CHEK XX (02:01)
[2019-01-01 04:10] LABS: AMPHETAMINE/METHAMPHETAMINE NEGATIVE (NEGATIVE); BARBITURATES NEGATIVE (NEGATIVE); BENZODIAZEPINES NEGATIVE (NEGATIVE); CANNABINOIDS POSITIVE (NEGATIVE); COCAINE NEGATIVE (NEGATIVE); OPIATES NEGATIVE (NEGATIVE)
[2019-01-01 04:51] LABS: ADD MAN DIFF? NO
[2019-01-01 04:55] LABS: WHITE BLOOD COUNT 10.9 10^3/ul (4.8-10.8)
[2019-01-01 04:55] LABS: BASOPHIL # 0.1 10^3/ul (0.0-0.1); BASOPHILS % 0.6 % (0.0-2.0); EOSINOPHILS # 0.1 10^3/ul (0.0-0.5); EOSINOPHILS % 1.1 % (0.0-7.0); HEMATOCRIT 29.4 % (37.0-47.0); HEMOGLOBIN 9.5 g/dl (12.0-16.0); LYMPHOCYTES # 2.6 10^3/ul (0.8-2.9); LYMPHOCYTES % 23.8 % (15.0-51.0); MEAN CORPUSCULAR HEMOGLOBIN 24.9 pg (29.0-33.0); MEAN CORPUSCULAR HGB CONC 32.3 g/dl (32.0-37.0); MEAN PLATELET VOLUME 11.4 fl (7.4-10.4); MONOCYTE # 0.7 10^3/ul (0.3-0.9); MONOCYTES % 6.2 % (0.0-11.0); NEUTROPHIL # 7.4 10^3/ul (1.6-7.5); NEUTROPHILS % 67.9 % (39.0-77.0); PLATELET COUNT 374 10^3/UL (140-415); RED BLOOD COUNT 3.82 10^6/ul (4.20-5.40); RED CELL DISTRIBUTION WIDTH 17.4 % (11.5-14.5)
[2019-01-01] MEDS: INSULIN ASPART [NOVOLOG] 3 ML PEN SC ×8 (05:00→20:23)
[2019-01-01 05:24] LABS: ANION GAP 6 (5-13); BLOOD UREA NITROGEN 25 mg/dl (7-20); CALCIUM 9.2 mg/dl (8.4-10.2); CARBON DIOXIDE 28 mmol/L (21-31); CHLORIDE 108 mmol/L (97-110); CREATININE 1.81 mg/dl (0.44-1.00); Estimated GFR 36 mL/min (>60); GLUCOSE 124 mg/dl (70-220); MAGNESIUM 2.6 mg/dl (1.7-2.5); PHOSPHORUS 5.4 mg/dl (2.5-4.9); POTASSIUM 4.7 mmol/L (3.5-5.1); SODIUM 142 mmol/L (135-144)
[2019-01-01] MEDS: FAMOTIDINE 20 MG INJ IV (09:26)
[2019-01-01] MEDS: INSULIN GLARGINE [LANTus] (100 UNITS/ML) SYG SC (10:47)
[2019-01-01] MEDS: SOD CHLORIDE 0.9% 1,000 ML IV (12:12)
[2019-01-01 12:43] LABS: TROPONIN-I < 0.012 ng/ml (0.000-0.120)
[2019-01-01 14:41] LABS: CREATINE KINASE 95 IU/L (23-200)
[2019-01-01 19:19] LABS: TROPONIN-I < 0.012 ng/ml (0.000-0.120)
[2019-01-01] MEDS: ATORVASTATIN 40 MG TAB PO (21:00)
[2019-01-01] MEDS ORDERED: LEVETIRACETAM 500 MG (PMX) 100 ML IVPB (21:00)
[2019-01-02] MEDS: INSULIN ASPART [NOVOLOG] 3 ML PEN SC ×9 (01:27→21:17)
[2019-01-02 01:31] LABS: TROPONIN-I < 0.012 ng/ml (0.000-0.120)
[2019-01-02] MEDS: ACCU-CHEK XX (02:00)
[2019-01-02 05:43] LABS: ADD MAN DIFF? NO
[2019-01-02 05:57] LABS: BASOPHIL # 0.1 10^3/ul (0.0-0.1); BASOPHILS % 0.5 % (0.0-2.0); EOSINOPHILS # 0.2 10^3/ul (0.0-0.5); HEMATOCRIT 28.6 % (37.0-47.0); HEMOGLOBIN 9.2 g/dl (12.0-16.0); LYMPHOCYTES # 2.8 10^3/ul (0.8-2.9); LYMPHOCYTES % 26.8 % (15.0-51.0); MEAN CORPUSCULAR HGB CONC 32.2 g/dl (32.0-37.0); MEAN CORPUSCULAR VOLUME 77.7 fl (82.0-101.0); MEAN PLATELET VOLUME 10.5 fl (7.4-10.4); MONOCYTE # 0.7 10^3/ul (0.3-0.9); MONOCYTES % 6.3 % (0.0-11.0); NEUTROPHIL # 6.7 10^3/ul (1.6-7.5); PLATELET COUNT 364 10^3/UL (140-415); RED BLOOD COUNT 3.68 10^6/ul (4.20-5.40); RED CELL DISTRIBUTION WIDTH 17.1 % (11.5-14.5)
[2019-01-02 05:57] LABS: WHITE BLOOD COUNT 10.5 10^3/ul (4.8-10.8)
[2019-01-02 06:35] LABS: CHOLESTEROL 120 mg/dl (100-200)
[2019-01-02 06:35] LABS: CHOL/HDL RATIO 3.6 RATIO; HDL CHOLESTEROL 33 mg/dl (37-92); LDL CHOLESTEROL,CALCULATED 71 mg/dl; TRIGLYCERIDES 82 mg/dl (0-149)
[2019-01-02 06:54] LABS: ANION GAP 6 (5-13); BLOOD UREA NITROGEN 22 mg/dl (7-20); CALCIUM 8.8 mg/dl (8.4-10.2); CARBON DIOXIDE 26 mmol/L (21-31); CHLORIDE 110 mmol/L (97-110); CREATININE 1.59 mg/dl (0.44-1.00); Estimated GFR 41 mL/min (>60); GLUCOSE 159 mg/dl (70-220); MAGNESIUM 2.5 mg/dl (1.7-2.5); PHOSPHORUS 4.2 mg/dl (2.5-4.9); POTASSIUM 4.8 mmol/L (3.5-5.1); SODIUM 142 mmol/L (135-144)
[2019-01-02] MEDS: SOD CHLORIDE 0.9% 1,000 ML IV (09:10)
[2019-01-02] MEDS: FAMOTIDINE 20 MG INJ IV (09:10)
[2019-01-02] MEDS: INSULIN GLARGINE [LANTus] (100 UNITS/ML) SYG SC (09:27)
[2019-01-02 16:01] LABS: CREATININE, RANDOM URINE 60 mg/dL (20-275); MICROALBUMIN 76.1 mg/dL; MICROALBUMIN/CREATININE RATIO 1268 (<30)
[2019-01-02] MEDS ORDERED: CAPSAICIN 0.025% 60 GM CR TOP (20:00)
[2019-01-02] MEDS: ATORVASTATIN 40 MG TAB PO (21:00)
[2019-01-02] MEDS: CAPSAICIN 0.025% 60 GM CR TOP (22:03)
[2019-01-02] MEDS: hydrALAzine 20 MG INJ IV (22:14)
[2019-01-03] MEDS: INSULIN ASPART [NOVOLOG] 3 ML PEN SC ×9 (00:49→20:56)
[2019-01-03] MEDS: ACCU-CHEK XX (00:50)
[2019-01-03 05:19] LABS: ADD MAN DIFF? NO
[2019-01-03 05:21] LABS: WHITE BLOOD COUNT 9.7 10^3/ul (4.8-10.8)
[2019-01-03 05:21] LABS: BASOPHILS % 0.3 % (0.0-2.0); EOSINOPHILS # 0.3 10^3/ul (0.0-0.5); EOSINOPHILS % 2.6 % (0.0-7.0); HEMATOCRIT 28.2 % (37.0-47.0); HEMOGLOBIN 9.2 g/dl (12.0-16.0); LYMPHOCYTES # 3.1 10^3/ul (0.8-2.9); LYMPHOCYTES % 31.5 % (15.0-51.0); MEAN CORPUSCULAR HEMOGLOBIN 25.1 pg (29.0-33.0); MEAN CORPUSCULAR HGB CONC 32.6 g/dl (32.0-37.0); MEAN PLATELET VOLUME 10.4 fl (7.4-10.4); MONOCYTE # 0.6 10^3/ul (0.3-0.9); MONOCYTES % 6.5 % (0.0-11.0); NEUTROPHIL # 5.7 10^3/ul (1.6-7.5); NEUTROPHILS % 58.8 % (39.0-77.0); PLATELET COUNT 375 10^3/UL (140-415); RED BLOOD COUNT 3.66 10^6/ul (4.20-5.40); RED CELL DISTRIBUTION WIDTH 16.9 % (11.5-14.5)
[2019-01-03] MEDS: SOD CHLORIDE 0.9% 1,000 ML IV (05:32)
[2019-01-03 05:59] LABS: ANION GAP 6 (5-13); BLOOD UREA NITROGEN 15 mg/dl (7-20); CALCIUM 8.8 mg/dl (8.4-10.2); CARBON DIOXIDE 25 mmol/L (21-31); CHLORIDE 110 mmol/L (97-110); CREATININE 1.46 mg/dl (0.44-1.00); Estimated GFR 46 mL/min (>60); GLUCOSE 131 mg/dl (70-220); MAGNESIUM 2.3 mg/dl (1.7-2.5); PHOSPHORUS 3.5 mg/dl (2.5-4.9); POTASSIUM 4.3 mmol/L (3.5-5.1); SODIUM 141 mmol/L (135-144)
[2019-01-03] MEDS: INSULIN GLARGINE [LANTus] (100 UNITS/ML) SYG SC (08:52)
[2019-01-03] MEDS: FAMOTIDINE 20 MG INJ IV (09:15)
[2019-01-03] MEDS: hydrALAzine 20 MG INJ IV (09:18)
[2019-01-03] MEDS: TICAGRELOR 90 MG TABLET PO (20:55)
[2019-01-03] MEDS: ATORVASTATIN 40 MG TAB PO (20:56)
[2019-01-04] MEDS: ACCU-CHEK XX (02:00)
[2019-01-04 05:35] LABS: ADD MAN DIFF? NO
[2019-01-04 05:37] LABS: WHITE BLOOD COUNT 9.4 10^3/ul (4.8-10.8)
[2019-01-04 05:37] LABS: BASOPHIL # 0.1 10^3/ul (0.0-0.1); BASOPHILS % 0.6 % (0.0-2.0); EOSINOPHILS # 0.2 10^3/ul (0.0-0.5); EOSINOPHILS % 2.4 % (0.0-7.0); HEMATOCRIT 29.2 % (37.0-47.0); HEMOGLOBIN 9.5 g/dl (12.0-16.0); LYMPHOCYTES % 31.9 % (15.0-51.0); MEAN CORPUSCULAR HEMOGLOBIN 24.7 pg (29.0-33.0); MEAN CORPUSCULAR HGB CONC 32.5 g/dl (32.0-37.0); MEAN CORPUSCULAR VOLUME 75.8 fl (82.0-101.0); MEAN PLATELET VOLUME 10.3 fl (7.4-10.4); MONOCYTE # 0.5 10^3/ul (0.3-0.9); MONOCYTES % 5.7 % (0.0-11.0); NEUTROPHIL # 5.6 10^3/ul (1.6-7.5); NEUTROPHILS % 59.2 % (39.0-77.0); PLATELET COUNT 388 10^3/UL (140-415); RED BLOOD COUNT 3.85 10^6/ul (4.20-5.40); RED CELL DISTRIBUTION WIDTH 16.8 % (11.5-14.5)
[2019-01-04 06:24] LABS: ANION GAP 6 (5-13); BLOOD UREA NITROGEN 14 mg/dl (7-20); CARBON DIOXIDE 25 mmol/L (21-31); CHLORIDE 110 mmol/L (97-110); CREATININE 1.48 mg/dl (0.44-1.00); Estimated GFR 45 mL/min (>60); GLUCOSE 142 mg/dl (70-220); MAGNESIUM 2.3 mg/dl (1.7-2.5); PHOSPHORUS 3.8 mg/dl (2.5-4.9); POTASSIUM 4.3 mmol/L (3.5-5.1); SODIUM 141 mmol/L (135-144)
[2019-01-04] MEDS: INSULIN GLARGINE [LANTus] (100 UNITS/ML) SYG SC (08:15)
[2019-01-04] MEDS: INSULIN ASPART [NOVOLOG] 3 ML PEN SC ×7 (08:15→20:25)
[2019-01-04] MEDS: FAMOTIDINE 20 MG INJ IV (08:36)
[2019-01-04] MEDS: ASPIRIN (EC) 81 MG TAB PO (08:36)
[2019-01-04] MEDS: BALSAM PERU/CASTOR OIL 60 GM TUBE TOP ×2 (13:07→20:31)
[2019-01-04] MEDS: ATORVASTATIN 40 MG TAB PO (20:30)
[2019-01-04] MEDS: TICAGRELOR 90 MG TABLET PO (20:44)
[2019-01-04 23:57] LABS: ANION GAP 6 (5-13); BLOOD UREA NITROGEN 18 mg/dl (7-20); CALCIUM 9.3 mg/dl (8.4-10.2); CARBON DIOXIDE 25 mmol/L (21-31); CHLORIDE 106 mmol/L (97-110); CREATININE 1.57 mg/dl (0.44-1.00); Estimated GFR 42 mL/min (>60); GLUCOSE 154 mg/dl (70-220); MAGNESIUM 2.2 mg/dl (1.7-2.5); POTASSIUM 4.2 mmol/L (3.5-5.1); SODIUM 137 mmol/L (135-144)
[2019-01-05] MEDS: ACCU-CHEK XX (02:00)
[2019-01-05 05:55] LABS: ADD MAN DIFF? NO
[2019-01-05 06:01] LABS: BASOPHILS % 0.3 % (0.0-2.0); EOSINOPHILS # 0.3 10^3/ul (0.0-0.5); EOSINOPHILS % 2.8 % (0.0-7.0); HEMOGLOBIN 10.3 g/dl (12.0-16.0); LYMPHOCYTES # 2.6 10^3/ul (0.8-2.9); LYMPHOCYTES % 29.3 % (15.0-51.0); MEAN CORPUSCULAR HEMOGLOBIN 25.1 pg (29.0-33.0); MEAN CORPUSCULAR HGB CONC 33.2 g/dl (32.0-37.0); MEAN CORPUSCULAR VOLUME 75.6 fl (82.0-101.0); MEAN PLATELET VOLUME 10.6 fl (7.4-10.4); MONOCYTE # 0.6 10^3/ul (0.3-0.9); MONOCYTES % 6.6 % (0.0-11.0); NEUTROPHIL # 5.4 10^3/ul (1.6-7.5); NEUTROPHILS % 60.7 % (39.0-77.0); PLATELET COUNT 387 10^3/UL (140-415); RED CELL DISTRIBUTION WIDTH 16.4 % (11.5-14.5)
[2019-01-05 06:28] LABS: ANION GAP 7 (5-13); BLOOD UREA NITROGEN 17 mg/dl (7-20); CALCIUM 9.1 mg/dl (8.4-10.2); CARBON DIOXIDE 24 mmol/L (21-31); CHLORIDE 108 mmol/L (97-110); Estimated GFR 44 mL/min (>60); GLUCOSE 154 mg/dl (70-220); POTASSIUM 4.3 mmol/L (3.5-5.1); SODIUM 139 mmol/L (135-144)
[2019-01-05 06:31] LABS: PHOSPHORUS 4.4 mg/dl (2.5-4.9)
[2019-01-05 06:31] LABS: MAGNESIUM 2.1 mg/dl (1.7-2.5)
[2019-01-05] MEDS: INSULIN GLARGINE [LANTus] (100 UNITS/ML) SYG SC (08:13)
[2019-01-05] MEDS: INSULIN ASPART [NOVOLOG] 3 ML PEN SC ×7 (08:14→21:00)
[2019-01-05] MEDS: ASPIRIN (EC) 81 MG TAB PO (08:17)
[2019-01-05] MEDS: CLOPIDOGREL 75 MG TAB PO (08:17)
[2019-01-05] MEDS: BALSAM PERU/CASTOR OIL 60 GM TUBE TOP ×2 (08:18→21:04)
[2019-01-05] MEDS: FAMOTIDINE 20 MG INJ IV (08:18)
[2019-01-05] MEDS ORDERED: TICAGRELOR 90 MG TABLET PO (09:00)
[2019-01-05] MEDS: ATORVASTATIN 40 MG TAB PO (21:02)
[2019-01-06] MEDS: ACCU-CHEK XX (02:00)
[2019-01-06 06:12] LABS: ADD MAN DIFF? NO
[2019-01-06 06:23] LABS: BASOPHIL # 0.1 10^3/ul (0.0-0.1); BASOPHILS % 0.6 % (0.0-2.0); EOSINOPHILS # 0.3 10^3/ul (0.0-0.5); EOSINOPHILS % 3.3 % (0.0-7.0); HEMATOCRIT 31.9 % (37.0-47.0); HEMOGLOBIN 10.5 g/dl (12.0-16.0); LYMPHOCYTES # 3.1 10^3/ul (0.8-2.9); LYMPHOCYTES % 37.3 % (15.0-51.0); MEAN CORPUSCULAR HEMOGLOBIN 24.9 pg (29.0-33.0); MEAN CORPUSCULAR HGB CONC 32.9 g/dl (32.0-37.0); MEAN CORPUSCULAR VOLUME 75.6 fl (82.0-101.0); MEAN PLATELET VOLUME 10.7 fl (7.4-10.4); MONOCYTE # 0.5 10^3/ul (0.3-0.9); MONOCYTES % 5.7 % (0.0-11.0); NEUTROPHIL # 4.4 10^3/ul (1.6-7.5); NEUTROPHILS % 52.7 % (39.0-77.0); PLATELET COUNT 369 10^3/UL (140-415); RED BLOOD COUNT 4.22 10^6/ul (4.20-5.40); RED CELL DISTRIBUTION WIDTH 16.3 % (11.5-14.5)
[2019-01-06 06:23] LABS: WHITE BLOOD COUNT 8.4 10^3/ul (4.8-10.8)
[2019-01-06 06:47] LABS: MAGNESIUM 2.3 mg/dl (1.7-2.5)
[2019-01-06 06:51] LABS: ANION GAP 7 (5-13); BLOOD UREA NITROGEN 17 mg/dl (7-20); CALCIUM 9.6 mg/dl (8.4-10.2); CARBON DIOXIDE 26 mmol/L (21-31); CHLORIDE 108 mmol/L (97-110); CREATININE 1.57 mg/dl (0.44-1.00); Estimated GFR 42 mL/min (>60); GLUCOSE 147 mg/dl (70-220); POTASSIUM 4.3 mmol/L (3.5-5.1); SODIUM 141 mmol/L (135-144)
[2019-01-06] MEDS: INSULIN ASPART [NOVOLOG] 3 ML PEN SC ×7 (07:39→21:00)
[2019-01-06] MEDS: CLOPIDOGREL 75 MG TAB PO (08:49)
[2019-01-06] MEDS: ASPIRIN (EC) 81 MG TAB PO (08:49)
[2019-01-06] MEDS: FAMOTIDINE 20 MG INJ IV (08:50)
[2019-01-06] MEDS: BALSAM PERU/CASTOR OIL 60 GM TUBE TOP ×2 (08:51→21:13)
[2019-01-06] MEDS: INSULIN GLARGINE [LANTus] (100 UNITS/ML) SYG SC (09:07)
[2019-01-06] MEDS: ATORVASTATIN 40 MG TAB PO (21:00)
[2019-01-07] MEDS: ACCU-CHEK XX (02:00)
[2019-01-07 06:08] LABS: ADD MAN DIFF? NO
[2019-01-07 06:21] LABS: BASOPHIL # 0.1 10^3/ul (0.0-0.1); BASOPHILS % 0.6 % (0.0-2.0); EOSINOPHILS # 0.2 10^3/ul (0.0-0.5); EOSINOPHILS % 2.7 % (0.0-7.0); HEMATOCRIT 31.4 % (37.0-47.0); HEMOGLOBIN 10.3 g/dl (12.0-16.0); LYMPHOCYTES # 3.2 10^3/ul (0.8-2.9); LYMPHOCYTES % 36.5 % (15.0-51.0); MEAN CORPUSCULAR HEMOGLOBIN 24.9 pg (29.0-33.0); MEAN CORPUSCULAR HGB CONC 32.8 g/dl (32.0-37.0); MEAN CORPUSCULAR VOLUME 75.8 fl (82.0-101.0); MEAN PLATELET VOLUME 10.8 fl (7.4-10.4); MONOCYTE # 0.6 10^3/ul (0.3-0.9); MONOCYTES % 6.2 % (0.0-11.0); NEUTROPHIL # 4.8 10^3/ul (1.6-7.5); NEUTROPHILS % 53.7 % (39.0-77.0); PLATELET COUNT 371 10^3/UL (140-415); RED BLOOD COUNT 4.14 10^6/ul (4.20-5.40); RED CELL DISTRIBUTION WIDTH 15.9 % (11.5-14.5)
[2019-01-07 06:21] LABS: WHITE BLOOD COUNT 8.9 10^3/ul (4.8-10.8)
[2019-01-07 06:37] LABS: PHOSPHORUS 4.6 mg/dl (2.5-4.9)
[2019-01-07 06:37] LABS: MAGNESIUM 2.1 mg/dl (1.7-2.5)
[2019-01-07 06:51] LABS: ANION GAP 7 (5-13); BLOOD UREA NITROGEN 18 mg/dl (7-20); CALCIUM 9.2 mg/dl (8.4-10.2); CARBON DIOXIDE 25 mmol/L (21-31); CHLORIDE 107 mmol/L (97-110); CREATININE 1.43 mg/dl (0.44-1.00); Estimated GFR 47 mL/min (>60); GLUCOSE 176 mg/dl (70-220); POTASSIUM 4.2 mmol/L (3.5-5.1); SODIUM 139 mmol/L (135-144)
[2019-01-07] MEDS: INSULIN GLARGINE [LANTus] (100 UNITS/ML) SYG SC (08:01)
[2019-01-07] MEDS: INSULIN ASPART [NOVOLOG] 3 ML PEN SC ×7 (08:01→20:49)
[2019-01-07] MEDS: CLOPIDOGREL 75 MG TAB PO (10:19)
[2019-01-07] MEDS: ASPIRIN (EC) 81 MG TAB PO (10:20)
[2019-01-07] MEDS: FAMOTIDINE 20 MG TAB PO (10:20)
[2019-01-07] MEDS: BALSAM PERU/CASTOR OIL 60 GM TUBE TOP ×2 (10:21→20:40)
[2019-01-07] MEDS: IBUPROFEN 600 MG TAB PO (15:30)
[2019-01-07] MEDS: ATORVASTATIN 40 MG TAB PO (20:43)
[2019-01-08] MEDS: ACCU-CHEK XX (01:40)
[2019-01-08 06:26] LABS: ADD MAN DIFF? NO
[2019-01-08 06:27] LABS: BASOPHILS % 0.5 % (0.0-2.0); EOSINOPHILS # 0.2 10^3/ul (0.0-0.5); EOSINOPHILS % 2.8 % (0.0-7.0); HEMATOCRIT 31.1 % (37.0-47.0); HEMOGLOBIN 10.2 g/dl (12.0-16.0); LYMPHOCYTES % 34.9 % (15.0-51.0); MEAN CORPUSCULAR HGB CONC 32.8 g/dl (32.0-37.0); MEAN CORPUSCULAR VOLUME 76.2 fl (82.0-101.0); MEAN PLATELET VOLUME 10.9 fl (7.4-10.4); MONOCYTE # 0.5 10^3/ul (0.3-0.9); MONOCYTES % 5.9 % (0.0-11.0); NEUTROPHIL # 4.8 10^3/ul (1.6-7.5); NEUTROPHILS % 55.7 % (39.0-77.0); PLATELET COUNT 385 10^3/UL (140-415); RED BLOOD COUNT 4.08 10^6/ul (4.20-5.40); RED CELL DISTRIBUTION WIDTH 16.3 % (11.5-14.5)
[2019-01-08 06:27] LABS: WHITE BLOOD COUNT 8.7 10^3/ul (4.8-10.8)
[2019-01-08 06:55] LABS: ANION GAP 10 (5-13); BLOOD UREA NITROGEN 18 mg/dl (7-20); CALCIUM 9.2 mg/dl (8.4-10.2); CARBON DIOXIDE 24 mmol/L (21-31); CHLORIDE 105 mmol/L (97-110); CREATININE 1.49 mg/dl (0.44-1.00); Estimated GFR 44 mL/min (>60); GLUCOSE 222 mg/dl (70-220); MAGNESIUM 2.2 mg/dl (1.7-2.5); PHOSPHORUS 4.3 mg/dl (2.5-4.9); SODIUM 139 mmol/L (135-144)
[2019-01-08] MEDS: INSULIN ASPART [NOVOLOG] 3 ML PEN SC ×7 (08:14→20:55)
[2019-01-08] MEDS: INSULIN GLARGINE [LANTus] (100 UNITS/ML) SYG SC (08:25)
[2019-01-08] MEDS: ASPIRIN (EC) 81 MG TAB PO (08:38)
[2019-01-08] MEDS: CLOPIDOGREL 75 MG TAB PO (08:40)
[2019-01-08] MEDS: FAMOTIDINE 20 MG TAB PO (08:41)
[2019-01-08] MEDS: BALSAM PERU/CASTOR OIL 60 GM TUBE TOP ×2 (08:42→20:36)
[2019-01-08] MEDS ORDERED: HYDROCODONE/APAP (5/325) TAB (08:47)
[2019-01-08] MEDS: ACETAMINOPHEN 325 MG TAB PO ×2 (08:56→17:17)
[2019-01-08] MEDS: traMADol 50 MG TAB PO (10:23)
[2019-01-08] MEDS ORDERED: LABETALOL HCL 20MG INJ IV (14:00)
[2019-01-08] MEDS: ATORVASTATIN 40 MG TAB PO (20:35)
[2019-01-09] MEDS: ACCU-CHEK XX (02:00)
[2019-01-09 06:16] LABS: ADD MAN DIFF? NO
[2019-01-09 06:20] LABS: WHITE BLOOD COUNT 8.8 10^3/ul (4.8-10.8)
[2019-01-09 06:20] LABS: BASOPHIL # 0.1 10^3/ul (0.0-0.1); BASOPHILS % 0.6 % (0.0-2.0); EOSINOPHILS # 0.3 10^3/ul (0.0-0.5); HEMATOCRIT 32.4 % (37.0-47.0); HEMOGLOBIN 10.5 g/dl (12.0-16.0); LYMPHOCYTES # 3.1 10^3/ul (0.8-2.9); LYMPHOCYTES % 35.5 % (15.0-51.0); MEAN CORPUSCULAR HEMOGLOBIN 24.9 pg (29.0-33.0); MEAN CORPUSCULAR HGB CONC 32.4 g/dl (32.0-37.0); MEAN PLATELET VOLUME 10.4 fl (7.4-10.4); MONOCYTE # 0.6 10^3/ul (0.3-0.9); MONOCYTES % 6.2 % (0.0-11.0); NEUTROPHIL # 4.8 10^3/ul (1.6-7.5); NEUTROPHILS % 54.5 % (39.0-77.0); PLATELET COUNT 381 10^3/UL (140-415); RED BLOOD COUNT 4.21 10^6/ul (4.20-5.40); RED CELL DISTRIBUTION WIDTH 16.3 % (11.5-14.5)
[2019-01-09 06:52] LABS: ANION GAP 7 (5-13); BLOOD UREA NITROGEN 20 mg/dl (7-20); CALCIUM 9.1 mg/dl (8.4-10.2); CARBON DIOXIDE 26 mmol/L (21-31); CHLORIDE 108 mmol/L (97-110); CREATININE 1.52 mg/dl (0.44-1.00); Estimated GFR 43 mL/min (>60); GLUCOSE 160 mg/dl (70-220); MAGNESIUM 2.3 mg/dl (1.7-2.5); PHOSPHORUS 4.8 mg/dl (2.5-4.9); POTASSIUM 4.5 mmol/L (3.5-5.1); SODIUM 141 mmol/L (135-144)
[2019-01-09] MEDS: ACETAMINOPHEN 325 MG TAB PO ×2 (06:52→20:09)
[2019-01-09] MEDS: INSULIN ASPART [NOVOLOG] 3 ML PEN SC ×7 (08:15→20:17)
[2019-01-09] MEDS: INSULIN GLARGINE [LANTus] (100 UNITS/ML) SYG SC (08:15)
[2019-01-09] MEDS: ASPIRIN (EC) 81 MG TAB PO (08:37)
[2019-01-09] MEDS: FAMOTIDINE 20 MG TAB PO (08:37)
[2019-01-09] MEDS: BALSAM PERU/CASTOR OIL 60 GM TUBE TOP ×2 (08:37→20:07)
[2019-01-09] MEDS: CLOPIDOGREL 75 MG TAB PO (08:37)
[2019-01-09] MEDS ORDERED: HYDROCORTISONE 25 MG SUPP PR (10:00)
[2019-01-09] MEDS: SKIN RESP FACT/SHARK/PH MERCU SUPP PR ×2 (10:34→20:08)
[2019-01-09] MEDS: ATORVASTATIN 40 MG TAB PO (20:08)
[2019-01-10] MEDS: ACCU-CHEK XX (02:00)
[2019-01-10] MEDS: ACETAMINOPHEN 325 MG TAB PO ×3 (02:11→18:50)
[2019-01-10] MEDS: INSULIN ASPART [NOVOLOG] 3 ML PEN SC ×7 (08:19→22:02)
[2019-01-10] MEDS: INSULIN GLARGINE [LANTus] (100 UNITS/ML) SYG SC (08:19)
[2019-01-10] MEDS: BALSAM PERU/CASTOR OIL 60 GM TUBE TOP ×2 (08:29→21:05)
[2019-01-10] MEDS: ASPIRIN (EC) 81 MG TAB PO (08:33)
[2019-01-10] MEDS: CLOPIDOGREL 75 MG TAB PO (08:33)
[2019-01-10] MEDS: FAMOTIDINE 20 MG TAB PO (08:33)
[2019-01-10] MEDS: SKIN RESP FACT/SHARK/PH MERCU SUPP PR ×2 (09:46→21:09)
[2019-01-10 12:26] LABS: ADD UMIC YES; UR ASCORBIC ACID 40 mg/dL (NEGATIVE); UR BACTERIA FEW /HPF (NONE SEEN); UR BILIRUBIN (Dip) NEGATIVE (NEGATIVE); UR BLOOD (Dip) NEGATIVE (NEGATIVE); UR CLARITY CLOUDY (CLEAR); UR COLOR YELLOW (YELLOW); UR GLUCOSE (Dip) NEGATIVE (NEGATIVE); UR KETONES (Dip) NEGATIVE (NEGATIVE); UR LEUKOCYTE ESTERASE (Dip) 3+ Leu/ul (NEGATIVE); UR NITRITE (Dip) POSITIVE (NEGATIVE); UR RBC 3 /HPF (0-5); UR SPECIFIC GRAVITY (Dip) 1.014 (1.003-1.030); UR TOTAL PROTEIN (Dip) 3+ mg/dl (NEGATIVE); UR UROBILINOGEN (Dip) NEGATIVE (NEGATIVE); UR WBC 111 /HPF (0-5)
[2019-01-10] MEDS: CEFEPIME 1GM/50 ML (PMX) 50 ML IVPB ×2 (14:34→21:02)
[2019-01-10] MEDS ORDERED: SENNA/DOCUSATE NA (8.6MG/50MG) TAB PO (16:00)
[2019-01-10] MEDS: BISACODYL (EC) 5 MG TAB PO (17:19)
[2019-01-10] MEDS: LIDOCAINE 2% JELLY 5 ML TOP (18:01)
[2019-01-10] MEDS: ATORVASTATIN 40 MG TAB PO ×2 (21:00→22:02)
[2019-01-10] MEDS: HYDROCODONE/APAP (5/325) TAB PO (22:02)
[2019-01-10] MEDS: BARIUM SULF 2% 450 ML BTL (BERRY SMOOTHIE) PO (22:03)
[2019-01-11] MEDS: ACCU-CHEK XX (02:00)
[2019-01-11 06:49] LABS: ADD MAN DIFF? NO
[2019-01-11 06:54] LABS: WHITE BLOOD COUNT 9.1 10^3/ul (4.8-10.8)
[2019-01-11 06:54] LABS: BASOPHILS % 0.4 % (0.0-2.0); EOSINOPHILS # 0.2 10^3/ul (0.0-0.5); EOSINOPHILS % 2.5 % (0.0-7.0); HEMATOCRIT 31.4 % (37.0-47.0); HEMOGLOBIN 10.2 g/dl (12.0-16.0); LYMPHOCYTES # 3.3 10^3/ul (0.8-2.9); LYMPHOCYTES % 36.4 % (15.0-51.0); MEAN CORPUSCULAR HGB CONC 32.5 g/dl (32.0-37.0); MEAN PLATELET VOLUME 10.3 fl (7.4-10.4); MONOCYTE # 0.5 10^3/ul (0.3-0.9); MONOCYTES % 5.5 % (0.0-11.0); NEUTROPHILS % 54.9 % (39.0-77.0); PLATELET COUNT 351 10^3/UL (140-415); RED BLOOD COUNT 4.08 10^6/ul (4.20-5.40); RED CELL DISTRIBUTION WIDTH 16.3 % (11.5-14.5)
[2019-01-11] MEDS: HYDROCODONE/APAP (5/325) TAB PO ×2 (07:12→15:56)
[2019-01-11 07:15] LABS: ANION GAP 6 (5-13); BLOOD UREA NITROGEN 24 mg/dl (7-20); CALCIUM 9.3 mg/dl (8.4-10.2); CARBON DIOXIDE 27 mmol/L (21-31); CHLORIDE 107 mmol/L (97-110); CREATININE 1.52 mg/dl (0.44-1.00); Estimated GFR 43 mL/min (>60); GLUCOSE 188 mg/dl (70-220); MAGNESIUM 2.2 mg/dl (1.7-2.5); PHOSPHORUS 4.4 mg/dl (2.5-4.9); POTASSIUM 4.1 mmol/L (3.5-5.1); SODIUM 140 mmol/L (135-144)
[2019-01-11] MEDS: INSULIN ASPART [NOVOLOG] 3 ML PEN SC ×7 (08:10→22:32)
[2019-01-11] MEDS: CEFEPIME 1GM/50 ML (PMX) 50 ML IVPB ×2 (09:19→21:30)
[2019-01-11] MEDS: ASPIRIN (EC) 81 MG TAB PO (09:20)
[2019-01-11] MEDS: DOCUSATE SODIUM 100 MG CAP PO ×2 (09:20→21:32)
[2019-01-11] MEDS: CLOPIDOGREL 75 MG TAB PO (09:21)
[2019-01-11] MEDS: FAMOTIDINE 20 MG TAB PO (09:21)
[2019-01-11] MEDS: SKIN RESP FACT/SHARK/PH MERCU SUPP PR ×2 (09:21→21:33)
[2019-01-11] MEDS: SENNA TAB PO ×2 (09:21→21:32)
[2019-01-11] MEDS: INSULIN GLARGINE [LANTus] (100 UNITS/ML) SYG SC (09:27)
[2019-01-11] MEDS: CAPSAICIN 0.025% 60 GM CR TOP (09:28)
[2019-01-11] MEDS: BALSAM PERU/CASTOR OIL 60 GM TUBE TOP ×2 (09:29→21:35)
[2019-01-11] MEDS: ATORVASTATIN 40 MG TAB PO (21:32)
[2019-01-12] MEDS: ACCU-CHEK XX (02:26)
[2019-01-12 06:11] LABS: ADD MAN DIFF? NO
[2019-01-12 06:14] LABS: WHITE BLOOD COUNT 8.2 10^3/ul (4.8-10.8)
[2019-01-12 06:14] LABS: BASOPHILS % 0.5 % (0.0-2.0); EOSINOPHILS # 0.2 10^3/ul (0.0-0.5); EOSINOPHILS % 2.9 % (0.0-7.0); HEMATOCRIT 31.2 % (37.0-47.0); HEMOGLOBIN 10.2 g/dl (12.0-16.0); LYMPHOCYTES # 3.3 10^3/ul (0.8-2.9); LYMPHOCYTES % 39.9 % (15.0-51.0); MEAN CORPUSCULAR HEMOGLOBIN 25.2 pg (29.0-33.0); MEAN CORPUSCULAR HGB CONC 32.7 g/dl (32.0-37.0); MEAN CORPUSCULAR VOLUME 77.2 fl (82.0-101.0); MEAN PLATELET VOLUME 10.8 fl (7.4-10.4); MONOCYTE # 0.6 10^3/ul (0.3-0.9); MONOCYTES % 6.8 % (0.0-11.0); NEUTROPHIL # 4.1 10^3/ul (1.6-7.5); NEUTROPHILS % 49.7 % (39.0-77.0); PLATELET COUNT 330 10^3/UL (140-415); RED BLOOD COUNT 4.04 10^6/ul (4.20-5.40); RED CELL DISTRIBUTION WIDTH 16.4 % (11.5-14.5)
[2019-01-12 06:44] LABS: ANION GAP 8 (5-13); BLOOD UREA NITROGEN 28 mg/dl (7-20); CALCIUM 9.4 mg/dl (8.4-10.2); CARBON DIOXIDE 26 mmol/L (21-31); CHLORIDE 106 mmol/L (97-110); CREATININE 1.44 mg/dl (0.44-1.00); Estimated GFR 46 mL/min (>60); GLUCOSE 177 mg/dl (70-220); MAGNESIUM 2.2 mg/dl (1.7-2.5); PHOSPHORUS 4.7 mg/dl (2.5-4.9); POTASSIUM 4.5 mmol/L (3.5-5.1); SODIUM 140 mmol/L (135-144)
[2019-01-12] MEDS: INSULIN ASPART [NOVOLOG] 3 ML PEN SC ×7 (07:38→21:00)
[2019-01-12] MEDS: CEFEPIME 1GM/50 ML (PMX) 50 ML IVPB ×2 (08:38→21:05)
[2019-01-12] MEDS: ASPIRIN (EC) 81 MG TAB PO (08:39)
[2019-01-12] MEDS: FAMOTIDINE 20 MG TAB PO (08:39)
[2019-01-12] MEDS: CLOPIDOGREL 75 MG TAB PO (08:39)
[2019-01-12] MEDS: SENNA TAB PO ×2 (08:39→21:06)
[2019-01-12] MEDS: SKIN RESP FACT/SHARK/PH MERCU SUPP PR ×2 (08:39→21:03)
[2019-01-12] MEDS: DOCUSATE SODIUM 100 MG CAP PO ×2 (08:39→21:04)
[2019-01-12] MEDS: INSULIN GLARGINE [LANTus] (100 UNITS/ML) SYG SC (08:42)
[2019-01-12] MEDS: BALSAM PERU/CASTOR OIL 60 GM TUBE TOP ×2 (08:43→21:06)
[2019-01-12] MEDS: HYDROCODONE/APAP (5/325) TAB PO (16:40)
[2019-01-12] MEDS: ATORVASTATIN 40 MG TAB PO (21:00)
[2019-01-13] MEDS: HYDROCODONE/APAP (5/325) TAB PO ×3 (00:49→20:39)
[2019-01-13] MEDS: ACCU-CHEK XX (02:00)
[2019-01-13] MEDS: INSULIN ASPART [NOVOLOG] 3 ML PEN SC ×7 (07:44→20:38)
[2019-01-13 08:42] LABS: ADD MAN DIFF? NO
[2019-01-13 08:52] LABS: BASOPHIL # 0.1 10^3/ul (0.0-0.1); BASOPHILS % 0.7 % (0.0-2.0); EOSINOPHILS # 0.3 10^3/ul (0.0-0.5); EOSINOPHILS % 3.2 % (0.0-7.0); HEMATOCRIT 32.2 % (37.0-47.0); HEMOGLOBIN 10.4 g/dl (12.0-16.0); LYMPHOCYTES # 2.9 10^3/ul (0.8-2.9); LYMPHOCYTES % 35.5 % (15.0-51.0); MEAN CORPUSCULAR HEMOGLOBIN 25.1 pg (29.0-33.0); MEAN CORPUSCULAR HGB CONC 32.3 g/dl (32.0-37.0); MEAN CORPUSCULAR VOLUME 77.8 fl (82.0-101.0); MEAN PLATELET VOLUME 10.6 fl (7.4-10.4); MONOCYTE # 0.5 10^3/ul (0.3-0.9); MONOCYTES % 5.8 % (0.0-11.0); NEUTROPHIL # 4.4 10^3/ul (1.6-7.5); NEUTROPHILS % 54.6 % (39.0-77.0); PLATELET COUNT 311 10^3/UL (140-415); RED BLOOD COUNT 4.14 10^6/ul (4.20-5.40); RED CELL DISTRIBUTION WIDTH 16.6 % (11.5-14.5)
[2019-01-13 08:52] LABS: WHITE BLOOD COUNT 8.1 10^3/ul (4.8-10.8)
[2019-01-13] MEDS: SENNA TAB PO ×2 (08:55→20:38)
[2019-01-13] MEDS: ASPIRIN (EC) 81 MG TAB PO (08:56)
[2019-01-13] MEDS: DOCUSATE SODIUM 100 MG CAP PO ×2 (08:56→20:38)
[2019-01-13] MEDS: SKIN RESP FACT/SHARK/PH MERCU SUPP PR ×2 (08:56→20:40)
[2019-01-13] MEDS: FAMOTIDINE 20 MG TAB PO (08:56)
[2019-01-13] MEDS: CLOPIDOGREL 75 MG TAB PO (08:56)
[2019-01-13] MEDS: INSULIN GLARGINE [LANTus] (100 UNITS/ML) SYG SC (09:02)
[2019-01-13 09:04] LABS: ANION GAP 6 (5-13); BLOOD UREA NITROGEN 27 mg/dl (7-20); CALCIUM 9.4 mg/dl (8.4-10.2); CARBON DIOXIDE 27 mmol/L (21-31); CHLORIDE 108 mmol/L (97-110); CREATININE 1.51 mg/dl (0.44-1.00); Estimated GFR 44 mL/min (>60); GLUCOSE 198 mg/dl (70-220); MAGNESIUM 2.2 mg/dl (1.7-2.5); PHOSPHORUS 4.4 mg/dl (2.5-4.9); POTASSIUM 4.5 mmol/L (3.5-5.1); SODIUM 141 mmol/L (135-144)
[2019-01-13] MEDS: BALSAM PERU/CASTOR OIL 60 GM TUBE TOP ×2 (09:04→22:06)
[2019-01-13] MEDS: CEFEPIME 1GM/50 ML (PMX) 50 ML IVPB ×2 (09:05→20:41)
[2019-01-13] MEDS: OXYCODONE/ACETAMINOPHEN (5/325) TAB PO (10:36)
[2019-01-13] MEDS: NA PHOSPHATE/BIPHOS 133 ML ENEMA PR (11:00)
[2019-01-13] MEDS: MAGNESIUM HYDROXIDE 30ML CUP PO (13:27)
[2019-01-13] MEDS: LIDOCAINE 2% JELLY 5 ML TOP (13:28)
[2019-01-13] MEDS: HYDROCORTISONE 2.5% 30 GM RECT CR PR ×2 (13:28→20:40)
[2019-01-13] MEDS: hydrALAzine 20 MG INJ IV (16:58)
[2019-01-13] MEDS: ATORVASTATIN 40 MG TAB PO (20:39)
[2019-01-14] MEDS: OXYCODONE/ACETAMINOPHEN (5/325) TAB PO ×4 (00:52→22:37)
[2019-01-14] MEDS: ONDANSETRON 4 MG INJ IV (01:26)
[2019-01-14] MEDS: ACCU-CHEK XX (01:35)
[2019-01-14] MEDS: ACETAMINOPHEN 325 MG TAB PO (04:40)
[2019-01-14 06:13] LABS: ADD MAN DIFF? NO
[2019-01-14 06:21] LABS: BASOPHILS % 0.5 % (0.0-2.0); EOSINOPHILS # 0.2 10^3/ul (0.0-0.5); EOSINOPHILS % 2.6 % (0.0-7.0); HEMOGLOBIN 10.2 g/dl (12.0-16.0); LYMPHOCYTES # 2.8 10^3/ul (0.8-2.9); MEAN CORPUSCULAR HEMOGLOBIN 24.6 pg (29.0-33.0); MEAN CORPUSCULAR HGB CONC 31.9 g/dl (32.0-37.0); MEAN CORPUSCULAR VOLUME 77.1 fl (82.0-101.0); MONOCYTE # 0.5 10^3/ul (0.3-0.9); MONOCYTES % 6.1 % (0.0-11.0); NEUTROPHIL # 4.5 10^3/ul (1.6-7.5); NEUTROPHILS % 55.4 % (39.0-77.0); PLATELET COUNT 317 10^3/UL (140-415); RED BLOOD COUNT 4.15 10^6/ul (4.20-5.40); RED CELL DISTRIBUTION WIDTH 16.8 % (11.5-14.5)
[2019-01-14 06:39] LABS: ANION GAP 6 (5-13); BLOOD UREA NITROGEN 28 mg/dl (7-20); CALCIUM 9.7 mg/dl (8.4-10.2); CARBON DIOXIDE 29 mmol/L (21-31); CHLORIDE 107 mmol/L (97-110); CREATININE 1.45 mg/dl (0.44-1.00); Estimated GFR 46 mL/min (>60); GLUCOSE 178 mg/dl (70-220); MAGNESIUM 2.5 mg/dl (1.7-2.5); PHOSPHORUS 4.2 mg/dl (2.5-4.9); POTASSIUM 4.9 mmol/L (3.5-5.1); SODIUM 142 mmol/L (135-144)
[2019-01-14] MEDS: INSULIN ASPART [NOVOLOG] 3 ML PEN SC ×7 (08:00→20:41)
[2019-01-14] MEDS: CLOPIDOGREL 75 MG TAB PO (08:09)
[2019-01-14] MEDS: SENNA TAB PO ×2 (08:09→20:39)
[2019-01-14] MEDS: HYDROCORTISONE 2.5% 30 GM RECT CR PR ×2 (08:09→20:40)
[2019-01-14] MEDS: SKIN RESP FACT/SHARK/PH MERCU SUPP PR ×2 (08:09→20:39)
[2019-01-14] MEDS: ASPIRIN (EC) 81 MG TAB PO (08:10)
[2019-01-14] MEDS: FAMOTIDINE 20 MG TAB PO (08:10)
[2019-01-14] MEDS: DOCUSATE SODIUM 100 MG CAP PO ×2 (08:10→20:39)
[2019-01-14] MEDS: INSULIN GLARGINE [LANTus] (100 UNITS/ML) SYG SC (08:18)
[2019-01-14] MEDS: CEFEPIME 1GM/50 ML (PMX) 50 ML IVPB (08:20)
[2019-01-14] MEDS: BALSAM PERU/CASTOR OIL 60 GM TUBE TOP ×2 (08:21→20:40)
[2019-01-14] MEDS: POLYETHYLENE GLYCOL 17 GM PACKET PO ×2 (10:00→20:38)
[2019-01-14] MEDS: morphine 2 MG INJ IV ×2 (10:21→18:03)
[2019-01-14] MEDS: MINERAL OIL 133 ML ENEMA PR (12:38)
[2019-01-14] MEDS: ATORVASTATIN 40 MG TAB PO (20:39)
[2019-01-15] MEDS: ACCU-CHEK XX (01:52)
[2019-01-15] MEDS: INSULIN ASPART [NOVOLOG] 3 ML PEN SC ×7 (08:09→20:10)
[2019-01-15] MEDS: OXYCODONE/ACETAMINOPHEN (5/325) TAB PO ×2 (08:22→20:08)
[2019-01-15] MEDS: FAMOTIDINE 20 MG TAB PO (08:22)
[2019-01-15] MEDS: ASPIRIN (EC) 81 MG TAB PO (08:22)
[2019-01-15] MEDS: CLOPIDOGREL 75 MG TAB PO (08:22)
[2019-01-15] MEDS: SKIN RESP FACT/SHARK/PH MERCU SUPP PR ×2 (08:23→20:09)
[2019-01-15] MEDS: SENNA TAB PO ×2 (08:23→20:09)
[2019-01-15] MEDS: DOCUSATE SODIUM 100 MG CAP PO ×2 (08:23→20:09)
[2019-01-15] MEDS: BALSAM PERU/CASTOR OIL 60 GM TUBE TOP ×2 (08:24→20:10)
[2019-01-15] MEDS: HYDROCORTISONE 2.5% 30 GM RECT CR PR ×2 (08:24→20:09)
[2019-01-15] MEDS: INSULIN GLARGINE [LANTus] (100 UNITS/ML) SYG SC (08:43)
[2019-01-15] MEDS: CAPSAICIN 0.025% 60 GM CR TOP (10:16)
[2019-01-15] MEDS: NA PHOSPHATE/BIPHOS 133 ML ENEMA PR (12:08)
[2019-01-15] MEDS: POLYETHYLENE GLYCOL 17 GM PACKET PO (12:09)
[2019-01-15] MEDS: hydrALAzine 20 MG INJ IV (15:48)
[2019-01-15] MEDS: BETHANECHOL 25 MG TAB PO ×2 (15:50→20:08)
[2019-01-15] MEDS: ATORVASTATIN 40 MG TAB PO (20:08)
[2019-01-16] MEDS: ACCU-CHEK XX (02:00)
[2019-01-16] MEDS: OXYCODONE/ACETAMINOPHEN (5/325) TAB PO ×2 (02:42→18:55)
[2019-01-16] MEDS: morphine 2 MG INJ IV (04:36)
[2019-01-16 05:46] LABS: WHITE BLOOD COUNT 12.6 10^3/ul (4.8-10.8)
[2019-01-16 05:46] LABS: ADD MAN DIFF? NO; BASOPHIL # 0.1 10^3/ul (0.0-0.1); BASOPHILS % 0.5 % (0.0-2.0); EOSINOPHILS # 0.2 10^3/ul (0.0-0.5); EOSINOPHILS % 1.7 % (0.0-7.0); HEMATOCRIT 32.3 % (37.0-47.0); HEMOGLOBIN 10.5 g/dl (12.0-16.0); LYMPHOCYTES # 2.4 10^3/ul (0.8-2.9); LYMPHOCYTES % 18.8 % (15.0-51.0); MEAN CORPUSCULAR HEMOGLOBIN 25.1 pg (29.0-33.0); MEAN CORPUSCULAR HGB CONC 32.5 g/dl (32.0-37.0); MEAN CORPUSCULAR VOLUME 77.1 fl (82.0-101.0); MEAN PLATELET VOLUME 11.6 fl (7.4-10.4); MONOCYTE # 0.7 10^3/ul (0.3-0.9); MONOCYTES % 5.9 % (0.0-11.0); NEUTROPHIL # 9.2 10^3/ul (1.6-7.5); NEUTROPHILS % 72.9 % (39.0-77.0); PLATELET COUNT 323 10^3/UL (140-415); RED BLOOD COUNT 4.19 10^6/ul (4.20-5.40)
[2019-01-16 06:27] LABS: ALBUMIN 3.8 g/dl (3.3-4.9); ANION GAP 9 (5-13); BLOOD UREA NITROGEN 26 mg/dl (7-20); CALCIUM 9.8 mg/dl (8.4-10.2); CARBON DIOXIDE 27 mmol/L (21-31); CHLORIDE 107 mmol/L (97-110); CREATININE 1.44 mg/dl (0.44-1.00); GLUCOSE 174 mg/dl (70-220); MAGNESIUM 2.4 mg/dl (1.7-2.5); PHOSPHORUS 4.9 mg/dl (2.5-4.9); POTASSIUM 4.9 mmol/L (3.5-5.1); SODIUM 143 mmol/L (135-144)
[2019-01-16] MEDS: INSULIN GLARGINE [LANTus] (100 UNITS/ML) SYG SC (08:03)
[2019-01-16] MEDS: INSULIN ASPART [NOVOLOG] 3 ML PEN SC ×7 (08:04→21:00)
[2019-01-16] MEDS: NA PHOSPHATE/BIPHOS 133 ML ENEMA PR (08:42)
[2019-01-16] MEDS: DOCUSATE SODIUM 100 MG CAP PO ×2 (08:43→20:35)
[2019-01-16] MEDS: CLOPIDOGREL 75 MG TAB PO (08:43)
[2019-01-16] MEDS: ASPIRIN (EC) 81 MG TAB PO (08:43)
[2019-01-16] MEDS: SENNA TAB PO ×2 (08:43→20:35)
[2019-01-16] MEDS: FAMOTIDINE 20 MG TAB PO (08:43)
[2019-01-16] MEDS: HYDROCORTISONE 2.5% 30 GM RECT CR PR ×2 (08:44→21:00)
[2019-01-16] MEDS: BALSAM PERU/CASTOR OIL 60 GM TUBE TOP ×2 (08:44→20:52)
[2019-01-16] MEDS: BETHANECHOL 25 MG TAB PO ×3 (08:44→20:34)
[2019-01-16] MEDS: SKIN RESP FACT/SHARK/PH MERCU SUPP PR ×2 (08:44→20:34)
[2019-01-16] MEDS: LUBIPROSTONE 24 MCG CAP PO (20:34)
[2019-01-16] MEDS: ATORVASTATIN 40 MG TAB PO (20:35)
[2019-01-17] MEDS: OXYCODONE/ACETAMINOPHEN (5/325) TAB PO ×2 (06:50→17:48)
[2019-01-17] MEDS: INSULIN ASPART [NOVOLOG] 3 ML PEN SC ×7 (08:00→21:00)
[2019-01-17] MEDS: SKIN RESP FACT/SHARK/PH MERCU SUPP PR ×2 (08:22→20:14)
[2019-01-17] MEDS: INSULIN GLARGINE [LANTus] (100 UNITS/ML) SYG SC (09:00)
[2019-01-17] MEDS: LUBIPROSTONE 24 MCG CAP PO ×2 (09:36→20:14)
[2019-01-17] MEDS: SENNA TAB PO ×2 (09:36→20:14)
[2019-01-17] MEDS: BETHANECHOL 25 MG TAB PO ×3 (09:36→20:14)
[2019-01-17] MEDS: DOCUSATE SODIUM 100 MG CAP PO ×2 (09:36→20:14)
[2019-01-17] MEDS: ASPIRIN (EC) 81 MG TAB PO (09:36)
[2019-01-17] MEDS: CLOPIDOGREL 75 MG TAB PO (09:36)
[2019-01-17] MEDS: FAMOTIDINE 20 MG TAB PO (09:37)
[2019-01-17] MEDS: BALSAM PERU/CASTOR OIL 60 GM TUBE TOP ×2 (09:38→20:17)
[2019-01-17] MEDS: CAPSAICIN 0.025% 60 GM CR TOP (09:39)
[2019-01-17] MEDS: NA PHOSPHATE/BIPHOS 133 ML ENEMA PR (09:56)
[2019-01-17] MEDS: morphine 2 MG INJ IV ×2 (10:18→16:32)
[2019-01-17] MEDS: HYDROCORTISONE 2.5% 30 GM RECT CR PR ×2 (11:22→20:14)
[2019-01-17 18:54] LABS: ADD MAN DIFF? NO
[2019-01-17 18:59] LABS: BASOPHIL # 0.1 10^3/ul (0.0-0.1); BASOPHILS % 0.5 % (0.0-2.0); EOSINOPHILS # 0.2 10^3/ul (0.0-0.5); EOSINOPHILS % 2.3 % (0.0-7.0); HEMATOCRIT 30.3 % (37.0-47.0); HEMOGLOBIN 9.8 g/dl (12.0-16.0); LYMPHOCYTES # 3.3 10^3/ul (0.8-2.9); LYMPHOCYTES % 35.8 % (15.0-51.0); MEAN CORPUSCULAR HEMOGLOBIN 24.9 pg (29.0-33.0); MEAN CORPUSCULAR HGB CONC 32.3 g/dl (32.0-37.0); MEAN CORPUSCULAR VOLUME 76.9 fl (82.0-101.0); MEAN PLATELET VOLUME 10.8 fl (7.4-10.4); MONOCYTE # 0.5 10^3/ul (0.3-0.9); MONOCYTES % 5.5 % (0.0-11.0); NEUTROPHIL # 5.1 10^3/ul (1.6-7.5); NEUTROPHILS % 55.7 % (39.0-77.0); PLATELET COUNT 291 10^3/UL (140-415); RED BLOOD COUNT 3.94 10^6/ul (4.20-5.40); RED CELL DISTRIBUTION WIDTH 16.4 % (11.5-14.5)
[2019-01-17 18:59] LABS: WHITE BLOOD COUNT 9.2 10^3/ul (4.8-10.8)
[2019-01-17 19:29] LABS: ALBUMIN 3.6 g/dl (3.3-4.9); ANION GAP 8 (5-13); BLOOD UREA NITROGEN 21 mg/dl (7-20); CALCIUM 9.1 mg/dl (8.4-10.2); CARBON DIOXIDE 28 mmol/L (21-31); CHLORIDE 105 mmol/L (97-110); GLUCOSE 130 mg/dl (70-220); MAGNESIUM 2.3 mg/dl (1.7-2.5); POTASSIUM 3.7 mmol/L (3.5-5.1); SODIUM 141 mmol/L (135-144)
[2019-01-17] MEDS: ATORVASTATIN 40 MG TAB PO (20:14)
[2019-01-18 05:30] LABS: ADD MAN DIFF? NO
[2019-01-18 05:31] LABS: BASOPHILS % 0.4 % (0.0-2.0); EOSINOPHILS # 0.2 10^3/ul (0.0-0.5); EOSINOPHILS % 2.4 % (0.0-7.0); HEMATOCRIT 30.8 % (37.0-47.0); LYMPHOCYTES % 40.7 % (15.0-51.0); MEAN CORPUSCULAR HEMOGLOBIN 25.3 pg (29.0-33.0); MEAN CORPUSCULAR HGB CONC 32.5 g/dl (32.0-37.0); MEAN CORPUSCULAR VOLUME 77.8 fl (82.0-101.0); MONOCYTE # 0.7 10^3/ul (0.3-0.9); NEUTROPHIL # 4.8 10^3/ul (1.6-7.5); NEUTROPHILS % 49.4 % (39.0-77.0); PLATELET COUNT 267 10^3/UL (140-415); RED BLOOD COUNT 3.96 10^6/ul (4.20-5.40); RED CELL DISTRIBUTION WIDTH 16.3 % (11.5-14.5)
[2019-01-18 05:31] LABS: WHITE BLOOD COUNT 9.8 10^3/ul (4.8-10.8)
[2019-01-18 06:05] LABS: ALBUMIN 3.4 g/dl (3.3-4.9); ANION GAP 5 (5-13); BLOOD UREA NITROGEN 20 mg/dl (7-20); CALCIUM 9.2 mg/dl (8.4-10.2); CARBON DIOXIDE 29 mmol/L (21-31); CHLORIDE 104 mmol/L (97-110); CREATININE 1.39 mg/dl (0.44-1.00); GLUCOSE 230 mg/dl (70-220); MAGNESIUM 2.3 mg/dl (1.7-2.5); PHOSPHORUS 4.1 mg/dl (2.5-4.9); SODIUM 138 mmol/L (135-144)
[2019-01-18] MEDS: INSULIN ASPART [NOVOLOG] 3 ML PEN SC ×7 (08:15→22:10)
[2019-01-18] MEDS: INSULIN GLARGINE [LANTus] (100 UNITS/ML) SYG SC (08:16)
[2019-01-18] MEDS: morphine 2 MG INJ IV ×2 (09:44→18:43)
[2019-01-18] MEDS: LUBIPROSTONE 24 MCG CAP PO ×2 (09:48→20:00)
[2019-01-18] MEDS: ASPIRIN (EC) 81 MG TAB PO (09:49)
[2019-01-18] MEDS: DOCUSATE SODIUM 100 MG CAP PO ×2 (09:49→20:00)
[2019-01-18] MEDS: FAMOTIDINE 20 MG TAB PO (09:49)
[2019-01-18] MEDS: SKIN RESP FACT/SHARK/PH MERCU SUPP PR ×2 (09:50→22:00)
[2019-01-18] MEDS: HYDROCORTISONE 2.5% 30 GM RECT CR PR ×2 (09:50→20:01)
[2019-01-18] MEDS: BETHANECHOL 25 MG TAB PO ×3 (09:50→20:00)
[2019-01-18] MEDS: CLOPIDOGREL 75 MG TAB PO (09:50)
[2019-01-18] MEDS: SENNA TAB PO ×2 (09:50→20:00)
[2019-01-18] MEDS: BALSAM PERU/CASTOR OIL 60 GM TUBE TOP ×2 (09:51→20:01)
[2019-01-18] MEDS: ATORVASTATIN 40 MG TAB PO (20:00)
[2019-01-18] MEDS: OXYCODONE/ACETAMINOPHEN (5/325) TAB PO (22:00)
[2019-01-19 05:56] LABS: ADD MAN DIFF? NO
[2019-01-19 05:58] LABS: BASOPHILS % 0.4 % (0.0-2.0); EOSINOPHILS # 0.2 10^3/ul (0.0-0.5); EOSINOPHILS % 2.2 % (0.0-7.0); HEMATOCRIT 30.9 % (37.0-47.0); HEMOGLOBIN 10.1 g/dl (12.0-16.0); LYMPHOCYTES # 4.1 10^3/ul (0.8-2.9); LYMPHOCYTES % 43.1 % (15.0-51.0); MEAN CORPUSCULAR HEMOGLOBIN 25.4 pg (29.0-33.0); MEAN CORPUSCULAR HGB CONC 32.7 g/dl (32.0-37.0); MEAN CORPUSCULAR VOLUME 77.6 fl (82.0-101.0); MONOCYTE # 0.6 10^3/ul (0.3-0.9); MONOCYTES % 6.5 % (0.0-11.0); NEUTROPHIL # 4.5 10^3/ul (1.6-7.5); NEUTROPHILS % 47.5 % (39.0-77.0); PLATELET COUNT 278 10^3/UL (140-415); RED BLOOD COUNT 3.98 10^6/ul (4.20-5.40); RED CELL DISTRIBUTION WIDTH 15.8 % (11.5-14.5)
[2019-01-19 05:58] LABS: WHITE BLOOD COUNT 9.5 10^3/ul (4.8-10.8)
[2019-01-19 06:16] LABS: ALBUMIN 3.3 g/dl (3.3-4.9); ANION GAP 6 (5-13); BLOOD UREA NITROGEN 21 mg/dl (7-20); CALCIUM 8.9 mg/dl (8.4-10.2); CARBON DIOXIDE 28 mmol/L (21-31); CHLORIDE 104 mmol/L (97-110); CREATININE 1.27 mg/dl (0.44-1.00); GLUCOSE 224 mg/dl (70-220); MAGNESIUM 2.1 mg/dl (1.7-2.5); PHOSPHORUS 3.8 mg/dl (2.5-4.9); POTASSIUM 4.4 mmol/L (3.5-5.1); SODIUM 138 mmol/L (135-144)
[2019-01-19] MEDS: morphine 2 MG INJ IV (07:36)
[2019-01-19] MEDS: INSULIN ASPART [NOVOLOG] 3 ML PEN SC ×6 (08:38→17:26)
[2019-01-19] MEDS: HYDROCORTISONE 2.5% 30 GM RECT CR PR (08:50)
[2019-01-19] MEDS: BALSAM PERU/CASTOR OIL 60 GM TUBE TOP (08:50)
[2019-01-19] MEDS: FAMOTIDINE 20 MG TAB PO (08:51)
[2019-01-19] MEDS: SENNA TAB PO (08:51)
[2019-01-19] MEDS: DOCUSATE SODIUM 100 MG CAP PO (08:51)
[2019-01-19] MEDS: LUBIPROSTONE 24 MCG CAP PO (08:51)
[2019-01-19] MEDS: CLOPIDOGREL 75 MG TAB PO (08:51)
[2019-01-19] MEDS: SKIN RESP FACT/SHARK/PH MERCU SUPP PR (08:51)
[2019-01-19] MEDS: ASPIRIN (EC) 81 MG TAB PO (08:51)
[2019-01-19] MEDS: BETHANECHOL 25 MG TAB PO ×2 (08:51→12:54)
[2019-01-19] MEDS: INSULIN GLARGINE [LANTus] (100 UNITS/ML) SYG SC (10:22)
== END 2019-01-19 19:00 | DRG 64 ==
LOC: ICU 12-31 14:53 → 6WM 01-03 17:22 → 2NE 01-16 15:40 → 6WM 22:49 → E/R 20:45
DX: I63.81 Other cerebral infarction due to occlusion or stenosis of small artery (principal); I60.9 Nontraumatic subarachnoid hemorrhage, unspecified; N17.9 Acute kidney failure, unspecified; I16.1 Hypertensive emergency; N39.0 Urinary tract infection, site not specified; I69.954 Hemiplegia and hemiparesis following unspecified cerebrovascular disease affecting left non-dominant side; K59.2 Neurogenic bowel, not elsewhere classified; R47.1 Dysarthria and anarthria; D63.1 Anemia in chronic kidney disease; D50.9 Iron deficiency anemia, unspecified; E11.22 Type 2 diabetes mellitus with diabetic chronic kidney disease; E11.69 Type 2 diabetes mellitus with other specified complication; E11.43 Type 2 diabetes mellitus with diabetic autonomic (poly)neuropathy; E87.5 Hyperkalemia; E78.5 Hyperlipidemia, unspecified; E03.9 Hypothyroidism, unspecified; E66.9 Obesity, unspecified; H54.8 Legal blindness, as defined in USA; I48.91 Unspecified atrial fibrillation; I65.23 Occlusion and stenosis of bilateral carotid arteries; I25.10 Atherosclerotic heart disease of native coronary artery without angina pectoris; I12.9 Hypertensive chronic kidney disease with stage 1 through stage 4 chronic kidney disease, or unspecified chronic kidney disease; K31.84 Gastroparesis; K59.00 Constipation, unspecified; N18.3 Chronic kidney disease, stage 3 (moderate); N31.9 Neuromuscular dysfunction of bladder, unspecified; R13.10 Dysphagia, unspecified; R33.9 Retention of urine, unspecified; R51 Headache; R94.31 Abnormal electrocardiogram [ECG] [EKG]; R29.702 NIHSS score 2; Z68.30 Body mass index [BMI] 30.0-30.9, adult; Z95.5 Presence of coronary angioplasty implant and graft; Z79.82 Long term (current) use of aspirin; Z79.4 Long term (current) use of insulin; Z79.02 Long term (current) use of antithrombotics/antiplatelets
CPT/HCPCS: 36415; 70450; 70551; 71045; 74018; 74176; 80048; 80053; 80061; 80069; 80307; 81001; 81003; 82043; 82550; 82553; 82962; 83036; 83735; 84100; 84155; 84300; 84484; 85025; 85610; 85730; 87081; 87086; 92507; 92523; 92526; 92610; 93005; 95819; 97110; 97162; 97530; 99291-25

== ENCOUNTER 2019-03-06 01:51 | Inpatient (IN) | payer OTHER ==
[2019-03-06 02:10] LABS: ADD MAN DIFF? NO
[2019-03-06 02:13] LABS: BASOPHILS % 0.4 % (0.0-2.0); EOSINOPHILS # 0.2 10^3/ul (0.0-0.5); EOSINOPHILS % 1.7 % (0.0-7.0); HEMOGLOBIN 8.7 g/dl (12.0-16.0); LYMPHOCYTES # 3.1 10^3/ul (0.8-2.9); LYMPHOCYTES % 33.2 % (15.0-51.0); MEAN CORPUSCULAR HEMOGLOBIN 25.8 pg (29.0-33.0); MEAN CORPUSCULAR HGB CONC 33.5 g/dl (32.0-37.0); MEAN CORPUSCULAR VOLUME 77.2 fl (82.0-101.0); MEAN PLATELET VOLUME 10.8 fl (7.4-10.4); MONOCYTE # 0.5 10^3/ul (0.3-0.9); MONOCYTES % 5.4 % (0.0-11.0); NEUTROPHIL # 5.4 10^3/ul (1.6-7.5); NEUTROPHILS % 59.1 % (39.0-77.0); PLATELET COUNT 303 10^3/UL (140-415); RED BLOOD COUNT 3.37 10^6/ul (4.20-5.40); RED CELL DISTRIBUTION WIDTH 15.3 % (11.5-14.5)
[2019-03-06 02:13] LABS: WHITE BLOOD COUNT 9.2 10^3/ul (4.8-10.8)
[2019-03-06 02:29] LABS: ANION GAP 8 (5-13); BLOOD UREA NITROGEN 28 mg/dl (7-20); CALCIUM 8.6 mg/dl (8.4-10.2); CARBON DIOXIDE 23 mmol/L (21-31); CHLORIDE 106 mmol/L (97-110); CREATININE 2.09 mg/dl (0.44-1.00); Estimated GFR 30 mL/min (>60); GLUCOSE 281 mg/dl (70-220); POTASSIUM 5.1 mmol/L (3.5-5.1); SODIUM 137 mmol/L (135-144)
[2019-03-06 02:41] LABS: TROPONIN-I < 0.012 ng/ml (0.000-0.120)
[2019-03-06] MEDS: CAPSAICIN 0.025% 60 GM CR TOP (04:08)
[2019-03-06] MEDS: SOD CHLORIDE 0.9% 500 ML IV (04:08)
[2019-03-06] MEDS ORDERED: ACETAMINOPHEN 325 MG TAB PO ×3 (04:30→06:30)
[2019-03-06] MEDS ORDERED: NITROGLYCERIN (SL) 0.4 MG TAB SL (06:30)
[2019-03-06] MEDS ORDERED: ONDANSETRON 4 MG TAB PO (06:30)
[2019-03-06] MEDS ORDERED: ALBUTEROL/IPRATROPIUM (NEB) 3 ML AMP HHN (06:30)
[2019-03-06] MEDS ORDERED: NACL 0.9% 3 ML SYG IV (06:30)
[2019-03-06] MEDS ORDERED: HYDROCODONE/APAP (5/325) TAB PO (06:30)
[2019-03-06] MEDS ORDERED: POLYETHYLENE GLYCOL 17 GM PACKET PO (06:30)
[2019-03-06] MEDS ORDERED: GLUCAGON 1 MG INJ IM (07:00)
[2019-03-06] MEDS ORDERED: GLUCOSE GEL 15 GRAM TUBE BUCCAL (07:00)
[2019-03-06] MEDS ORDERED: DEXTROSE 50% 50 ML SYRINGE IV ×2 (07:00)
[2019-03-06] MEDS ORDERED: GLUCOSE GEL 15 GRAM TUBE PO ×2 (07:00)
[2019-03-06] MEDS: SOD CHLORIDE 0.9% 1,000 ML IV ×2 (07:43→21:19)
[2019-03-06] MEDS: INSULIN ASPART [NOVOLOG] 3 ML PEN SC ×4 (07:59→21:00)
[2019-03-06 08:25] LABS: CREATINE KINASE 93 IU/L (23-200)
[2019-03-06 08:34] LABS: CK INDEX 0.7; CK-MB 0.68 ng/ml (0.0-2.4)
[2019-03-06 08:38] LABS: TROPONIN-I 0.018 ng/ml (0.000-0.120)
[2019-03-06] MEDS ORDERED: HEPARIN 5,000 UNIT/1 ML VIAL SC (09:00)
[2019-03-06] MEDS ORDERED: INSULIN GLARGINE [LANtus] 3 ML PEN SC ×2 (09:00)
[2019-03-06] MEDS: ASPIRIN (EC) 81 MG TAB PO (09:44)
[2019-03-06] MEDS: CLOPIDOGREL 75 MG TAB PO (09:44)
[2019-03-06] MEDS: DOCUSATE SODIUM 100 MG CAP PO ×2 (09:44→21:21)
[2019-03-06] MEDS: FAMOTIDINE 20 MG TAB PO (09:44)
[2019-03-06] MEDS: GABAPENTIN 300 MG CAP PO ×3 (09:45→21:21)
[2019-03-06] MEDS: BETHANECHOL 25 MG TAB PO ×3 (09:45→21:21)
[2019-03-06] MEDS: POTASSIUM CHLORIDE (SR) 8 MEQ CAP PO (09:45)
[2019-03-06] MEDS: LUBIPROSTONE 24 MCG CAP PO ×2 (09:45→21:20)
[2019-03-06] MEDS: FUROSEMIDE 20 MG TAB PO (09:45)
[2019-03-06] MEDS: SENNA TAB PO ×2 (09:46→21:21)
[2019-03-06] MEDS: INSULIN GLARGINE [LANTus] (100 UNITS/ML) SYG SC (10:27)
[2019-03-06] MEDS: ONDANSETRON 4 MG INJ IV ×2 (12:59→22:16)
[2019-03-06] MEDS: HYDROCODONE/APAP (5/325) TAB PO ×2 (13:27→19:34)
[2019-03-06 14:10] LABS: ADD UMIC YES; UR ASCORBIC ACID NEGATIVE (NEGATIVE); UR BACTERIA MANY /HPF (NONE SEEN); UR BILIRUBIN (Dip) NEGATIVE (NEGATIVE); UR BLOOD (Dip) NEGATIVE (NEGATIVE); UR CLARITY CLOUDY (CLEAR); UR COLOR YELLOW (YELLOW); UR GLUCOSE (Dip) NEGATIVE (NEGATIVE); UR KETONES (Dip) NEGATIVE (NEGATIVE); UR LEUKOCYTE ESTERASE (Dip) 2+ Leu/ul (NEGATIVE); UR NITRITE (Dip) NEGATIVE (NEGATIVE); UR RBC 9 /HPF (0-5); UR SPECIFIC GRAVITY (Dip) 1.009 (1.003-1.030); UR TOTAL PROTEIN (Dip) 2+ mg/dl (NEGATIVE); UR UROBILINOGEN (Dip) NEGATIVE (NEGATIVE); UR WBC 147 /HPF (0-5)
[2019-03-06 14:31] LABS: SODIUM,URINE RANDOM 86 mmol/L (30-90)
[2019-03-06 14:31] LABS: CREATININE,URINE RANDOM 32.94 mg/dl (20-320)
[2019-03-06] MEDS: MELATONIN 3 MG TABLET PO (21:20)
[2019-03-06] MEDS: ATORVASTATIN 40 MG TAB PO (21:21)
[2019-03-06] MEDS ORDERED: OXYCODONE/ACETAMINOPHEN (5/325) TAB PO (22:00)
[2019-03-06] MEDS: OXYCODONE/ACETAMINOPHEN (5/325) TAB PO (22:00)
[2019-03-06 22:03] LABS: CREATINE KINASE 120 IU/L (23-200)
[2019-03-06 22:16] LABS: CK INDEX 0.7; CK-MB 0.89 ng/ml (0.0-2.4); TROPONIN-I < 0.012 ng/ml (0.000-0.120)
[2019-03-07] MEDS: INSULIN GLARGINE [LANTus] (100 UNITS/ML) SYG SC ×3 (00:38→21:18)
[2019-03-07] MEDS: ACCU-CHEK XX (02:16)
[2019-03-07 05:52] LABS: ADD MAN DIFF? NO
[2019-03-07 05:59] LABS: BASOPHILS % 0.3 % (0.0-2.0); EOSINOPHILS # 0.1 10^3/ul (0.0-0.5); EOSINOPHILS % 1.2 % (0.0-7.0); HEMATOCRIT 25.7 % (37.0-47.0); HEMOGLOBIN 8.3 g/dl (12.0-16.0); LYMPHOCYTES # 2.4 10^3/ul (0.8-2.9); LYMPHOCYTES % 26.7 % (15.0-51.0); MEAN CORPUSCULAR HEMOGLOBIN 25.2 pg (29.0-33.0); MEAN CORPUSCULAR HGB CONC 32.3 g/dl (32.0-37.0); MEAN CORPUSCULAR VOLUME 77.9 fl (82.0-101.0); MEAN PLATELET VOLUME 11.3 fl (7.4-10.4); MONOCYTE # 0.5 10^3/ul (0.3-0.9); MONOCYTES % 5.9 % (0.0-11.0); NEUTROPHIL # 5.9 10^3/ul (1.6-7.5); NEUTROPHILS % 65.7 % (39.0-77.0); PLATELET COUNT 266 10^3/UL (140-415); RED CELL DISTRIBUTION WIDTH 15.6 % (11.5-14.5)
[2019-03-07 06:37] LABS: ALANINE AMINOTRANSFERASE 20 IU/L (13-69); ALBUMIN 3.1 g/dl (3.3-4.9); ALKALINE PHOSPHATASE 57 IU/L (42-121); ANION GAP 6 (5-13); ASPARTATE AMINO TRANSFERASE 17 IU/L (15-46); BILIRUBIN,INDIRECT 0.2 mg/dl (0-1.1); BILIRUBIN,TOTAL 0.2 mg/dl (0.2-1.3); BLOOD UREA NITROGEN 21 mg/dl (7-20); CALCIUM 8.7 mg/dl (8.4-10.2); CARBON DIOXIDE 25 mmol/L (21-31); CHLORIDE 111 mmol/L (97-110); CREATININE 1.55 mg/dl (0.44-1.00); Estimated GFR 42 mL/min (>60); GLUCOSE 94 mg/dl (70-220); POTASSIUM 4.4 mmol/L (3.5-5.1); SODIUM 142 mmol/L (135-144); TOTAL PROTEIN 6.2 g/dl (6.1-8.1)
[2019-03-07] MEDS: SOD CHLORIDE 0.9% 1,000 ML IV (07:56)
[2019-03-07] MEDS: INSULIN ASPART [NOVOLOG] 3 ML PEN SC ×4 (08:00→21:18)
[2019-03-07] MEDS: LUBIPROSTONE 24 MCG CAP PO ×2 (08:39→21:09)
[2019-03-07] MEDS: SENNA TAB PO ×2 (08:40→21:09)
[2019-03-07] MEDS: DOCUSATE SODIUM 100 MG CAP PO ×2 (08:41→21:09)
[2019-03-07] MEDS: CLOPIDOGREL 75 MG TAB PO (08:42)
[2019-03-07] MEDS: ASPIRIN (EC) 81 MG TAB PO (08:43)
[2019-03-07] MEDS: POTASSIUM CHLORIDE (SR) 8 MEQ CAP PO (08:43)
[2019-03-07] MEDS: FUROSEMIDE 20 MG TAB PO (08:44)
[2019-03-07] MEDS: FAMOTIDINE 20 MG TAB PO (08:45)
[2019-03-07] MEDS: BETHANECHOL 25 MG TAB PO ×3 (08:46→21:09)
[2019-03-07] MEDS: GABAPENTIN 300 MG CAP PO ×3 (08:47→21:09)
[2019-03-07] MEDS: CEFTRIAXONE 1 GM/50 ML (PMX) 50 ML IVPB (10:40)
[2019-03-07 15:45] LABS: CREATININE, RANDOM URINE 36 mg/dL (20-275); MICROALBUMIN 94.9 mg/dL; MICROALBUMIN/CREATININE RATIO 2636 (<30)
[2019-03-07] MEDS: CAPSAICIN 0.025% 60 GM CR TOP (18:38)
[2019-03-07] MEDS: ATORVASTATIN 40 MG TAB PO (21:09)
[2019-03-07] MEDS: MELATONIN 3 MG TABLET PO (21:09)
[2019-03-07] MEDS: METOPROLOL 25 MG TAB PO (21:10)
[2019-03-08] MEDS: ACCU-CHEK XX (02:05)
[2019-03-08 07:14] LABS: ADD MAN DIFF? NO
[2019-03-08 07:21] LABS: WHITE BLOOD COUNT 7.4 10^3/ul (4.8-10.8)
[2019-03-08 07:21] LABS: BASOPHILS % 0.4 % (0.0-2.0); EOSINOPHILS # 0.2 10^3/ul (0.0-0.5); HEMATOCRIT 24.1 % (37.0-47.0); LYMPHOCYTES # 3.7 10^3/ul (0.8-2.9); LYMPHOCYTES % 49.6 % (15.0-51.0); MEAN CORPUSCULAR HEMOGLOBIN 25.6 pg (29.0-33.0); MEAN CORPUSCULAR HGB CONC 33.2 g/dl (32.0-37.0); MEAN CORPUSCULAR VOLUME 77.2 fl (82.0-101.0); MONOCYTE # 0.5 10^3/ul (0.3-0.9); MONOCYTES % 7.3 % (0.0-11.0); NEUTROPHILS % 40.4 % (39.0-77.0); PLATELET COUNT 238 10^3/UL (140-415); RED BLOOD COUNT 3.12 10^6/ul (4.20-5.40); RED CELL DISTRIBUTION WIDTH 15.3 % (11.5-14.5)
[2019-03-08 07:38] LABS: CHOLESTEROL 186 mg/dl (100-200)
[2019-03-08 07:38] LABS: CHOL/HDL RATIO 4.4 RATIO; HDL CHOLESTEROL 42 mg/dl (37-92); LDL CHOLESTEROL,CALCULATED 112 mg/dl; TRIGLYCERIDES 159 mg/dl (0-149)
[2019-03-08 07:42] LABS: ANION GAP 7 (5-13); BLOOD UREA NITROGEN 22 mg/dl (7-20); CARBON DIOXIDE 25 mmol/L (21-31); CHLORIDE 109 mmol/L (97-110); Estimated GFR 41 mL/min (>60); GLUCOSE 68 mg/dl (70-220); PHOSPHORUS 4.8 mg/dl (2.5-4.9); POTASSIUM 4.3 mmol/L (3.5-5.1); SODIUM 141 mmol/L (135-144)
[2019-03-08] MEDS: INSULIN ASPART [NOVOLOG] 3 ML PEN SC ×4 (08:00→21:13)
[2019-03-08] MEDS: DOCUSATE SODIUM 100 MG CAP PO ×3 (09:15→21:15)
[2019-03-08] MEDS: BETHANECHOL 25 MG TAB PO ×3 (09:15→21:15)
[2019-03-08] MEDS: ASPIRIN (EC) 81 MG TAB PO (09:15)
[2019-03-08] MEDS: LUBIPROSTONE 24 MCG CAP PO ×3 (09:16→21:07)
[2019-03-08] MEDS: CLOPIDOGREL 75 MG TAB PO (09:16)
[2019-03-08] MEDS: GABAPENTIN 300 MG CAP PO ×3 (09:16→21:15)
[2019-03-08] MEDS: FAMOTIDINE 20 MG TAB PO (09:16)
[2019-03-08] MEDS: SENNA TAB PO ×2 (09:16→21:15)
[2019-03-08] MEDS: METOPROLOL 25 MG TAB PO ×2 (09:17→21:14)
[2019-03-08] MEDS: FUROSEMIDE 20 MG TAB PO (09:17)
[2019-03-08] MEDS: INSULIN GLARGINE [LANTus] (100 UNITS/ML) SYG SC ×3 (09:21→21:46)
[2019-03-08] MEDS: POTASSIUM CHLORIDE (SR) 8 MEQ CAP PO (10:04)
[2019-03-08] MEDS: CEFTRIAXONE 1 GM/50 ML (PMX) 50 ML IVPB (10:52)
[2019-03-08] MEDS: CAPSAICIN 0.025% 60 GM CR TOP (13:45)
[2019-03-08] MEDS: MELATONIN 3 MG TABLET PO (21:15)
[2019-03-08] MEDS: ATORVASTATIN 40 MG TAB PO (21:15)
[2019-03-09] MEDS: OXYCODONE/ACETAMINOPHEN (5/325) TAB PO ×2 (01:08→14:22)
[2019-03-09] MEDS: ACCU-CHEK XX (02:00)
[2019-03-09] MEDS: ONDANSETRON 4 MG INJ IV (06:21)
[2019-03-09 06:40] LABS: ANION GAP 7 (5-13); BLOOD UREA NITROGEN 30 mg/dl (7-20); CALCIUM 9.4 mg/dl (8.4-10.2); CARBON DIOXIDE 27 mmol/L (21-31); CHLORIDE 107 mmol/L (97-110); CREATININE 1.58 mg/dl (0.44-1.00); Estimated GFR 42 mL/min (>60); GLUCOSE 105 mg/dl (70-220); PHOSPHORUS 5.7 mg/dl (2.5-4.9); POTASSIUM 4.2 mmol/L (3.5-5.1); SODIUM 141 mmol/L (135-144)
[2019-03-09] MEDS ORDERED: hydrALAzine 20 MG INJ (06:43)
[2019-03-09] MEDS: hydrALAzine 20 MG INJ IV ×2 (06:54→17:53)
[2019-03-09] MEDS: INSULIN ASPART [NOVOLOG] 3 ML PEN SC ×3 (08:00→17:30)
[2019-03-09] MEDS: DOCUSATE SODIUM 100 MG CAP PO (08:28)
[2019-03-09] MEDS: FAMOTIDINE 20 MG TAB PO (08:28)
[2019-03-09] MEDS: METOPROLOL 25 MG TAB PO (08:28)
[2019-03-09] MEDS: CLOPIDOGREL 75 MG TAB PO (08:29)
[2019-03-09] MEDS: GABAPENTIN 300 MG CAP PO ×2 (08:29→12:06)
[2019-03-09] MEDS: ASPIRIN (EC) 81 MG TAB PO (08:29)
[2019-03-09] MEDS: LUBIPROSTONE 24 MCG CAP PO (08:29)
[2019-03-09] MEDS: BETHANECHOL 25 MG TAB PO ×2 (08:29→12:06)
[2019-03-09] MEDS: POTASSIUM CHLORIDE (SR) 8 MEQ CAP PO (08:29)
[2019-03-09] MEDS: SENNA TAB PO (08:29)
[2019-03-09] MEDS: FUROSEMIDE 20 MG TAB PO (08:30)
[2019-03-09] MEDS: CEFTRIAXONE 1 GM/50 ML (PMX) 50 ML IVPB (11:26)
[2019-03-09] MEDS: CAPSAICIN 0.025% 60 GM CR TOP (14:22)
== END 2019-03-09 18:26 | DRG 313 ==
LOC: PP2 03-08 02:33 → E/R 01:51 → PP2 03-08 02:54 → 6WM 04:16
DX: R07.9 Chest pain, unspecified (principal); N17.9 Acute kidney failure, unspecified; N39.0 Urinary tract infection, site not specified; I25.10 Atherosclerotic heart disease of native coronary artery without angina pectoris; I12.9 Hypertensive chronic kidney disease with stage 1 through stage 4 chronic kidney disease, or unspecified chronic kidney disease; E78.5 Hyperlipidemia, unspecified; I69.90 Unspecified sequelae of unspecified cerebrovascular disease; I16.0 Hypertensive urgency; D63.1 Anemia in chronic kidney disease; E10.22 Type 1 diabetes mellitus with diabetic chronic kidney disease; N18.3 Chronic kidney disease, stage 3 (moderate); E83.89 Other disorders of mineral metabolism; H54.7 Unspecified visual loss; I25.2 Old myocardial infarction; Z95.5 Presence of coronary angioplasty implant and graft; Z79.4 Long term (current) use of insulin; K59.00 Constipation, unspecified
CPT/HCPCS: 36415; 70450; 71045; 80048; 80053; 80061; 81001; 81003; 82043; 82550; 82553; 82962; 83735; 84100; 84155; 84300; 84484; 85025; 87086; 92526; 92610; 93005; 97110; 97163; 97530; 99217; 99285-25